=== PATIENT | male | born 1970 | race Caucasian/White ===

== ENCOUNTER 2020-10-31 11:55 | Emergency (ER) | payer OTHER, SELFPAY ==
--- NOTE | ~2020-10-31 | XR_ITS ---
EXAMINATION: [id number] EXAM DATE: 10/31/2020 12:14 INDICATION: Initial encounter following injury, with pain of the left ribs anteriorly. TECHNIQUE: Frontal projection of the upper left ribs, frontal projection of the lower left ribs, obli que projection of the left ribs, frontal chest x-ray(s) for interpretation. Comparison is made to ewa or examination from 2011. FINDINGS: Possible acute nondisplaced left 10th rib fracture anteriorly. There is no soft tissue abno rmality seen. Cardiomediastinal silhouette is normal. No confluent consolidation, pneumothorax or ple ural effusion suspected. IMPRESSION: Possible acute nondisplaced left 10th rib. Reviewed, dictated and finalized at location A.
--- NOTE | 2020-10-31 11:58 | ED.FALL ---
HPI - Fall General Chief Complaint: Wound/Laceration Stated Complaint: fall - hurts to breathe Time Seen by Provider: 10/31/20 11:58 Source: patient and RN notes reviewed History of Present Illness HPI Narrative: Patient is a 50-year-old male who presents the urgent care with complaints of a fall yesterday. Patient states that he was backing out of his attic and fell approximately 2 feet, catching himself but hitting his left side. Patient states that he has been having pain to the left side with deep breathing. Denies of any shortness of breath. No other acute complaints. No acute distress noted. Patient aware of the plan of care. Some parts of this dictation were generated by voice recognition software and may contain typographical and/or grammatical inaccuracies. Related Data Home Medications Medication Instructions Recorded Confirmed No Home Medications 10/31/20 10/31/20 Allergies Allergy/AdvReac Type Severity Reaction Status Date / Time No Known Allergies Allergy Verified 10/31/20 11:59 Review of Systems Review of Systems: Narrative: CONSTITUTIONAL: Denies fever, chills, or sweats. EYES: Denies visual changes, redness, or discharge. ENT: Denies rhinorrhea, congestion, sore throat, or otalgia. CARDIOVASCULAR: Denies chest pain, palpitations, or edema. RESPIRATORY: Reports of left rib tenderness and pain with deep breathing GASTROINTESTINAL: Denies abdominal pain, nausea, vomiting, or diarrhea. GENITOURINARY: Denies dysuria or hematuria. SKIN: Denies rash or itching. MUSCULOSKELETAL: Denies back pain, joint pain, or myalgia. NEUROLOGIC: Denies headache, numbness, or weakness. All other systems reviewed are negative, except as documented in HPI. PMFSH Comments At the time of my signature, I reviewed and agree with the nursing past medical, surgical, social, and family history. There is no relevant family history pertinent to the patient complaint. Exam Narrative: Exam Narrative: GENERAL: This is a well-nourished, well-developed patient, in no apparent distress. HEAD: normocephalic, atraumatic. EYES: PERRL. Sclera clear/white. Vision is grossly intact. EARS: External ears normal NOSE: External nose normal with no obvious nasal discharge, nares without redness, no rhinorrhea. THROAT: Mucous membranes moist NECK: Neck supple CARDIOVASCULAR: Regular rate and rhythm without murmurs, gallops, or rubs. RESPIRATORY: Clear to auscultation. Breath sounds equal bilaterally. No wheezes, rales, or rhonchi. Mild anterior rib tenderness just below the left breast without ecchymosis SKIN: warm, intact with no suspicious lesions or rash, good texture and turgor. NEURO: awake, alert, and oriented to person, place and time. There were no obvious focal neurologic abnormalities. EXTREMITIES: No clubbing, cyanosis, or edema. Course Vital Signs Vital signs: Vital Signs Temperature 98.5 F 10/31/20 12:03 Pulse Rate 79 10/31/20 12:03 Respiratory Rate 16 10/31/20 12:03 Blood Pressure 142/73 H 10/31/20 12:03 Pulse Oximetry 100 10/31/20 12:03 Temperature 98.5 F 10/31/20 12:03 Pulse Rate 79 10/31/20 12:03 Respiratory Rate 16 10/31/20 12:03 Blood Pressure 142/73 H 10/31/20 12:03 Pulse Oximetry 100 10/31/20 12:03 Reviewed-patient is informed that they may have pre-hypertension or hypertension based on a blood pressure reading in the department. I recommend the patient call the primary care provider listed on their discharge instructions or a physician of their choice this week to arrange follow-up for further evaluation of possible pre-hypertension or hypertension. MDM - Fall MDM Narrative Medical decision making narrative: Reviewed x-ray results with the patient. He is aware that radiologist is reading possible left rib fracture . Advised the patient not to bind the chest. May use a heating pad or ice pack intermittently for comfort. Use Tylenol as needed for pain. Avoid any strenuous activit
[2020-10-31 12:03] VITALS: BP 142/73; PULSE 79; RESP 16; TEMP 36.9; O2SAT 100
== END 2020-10-31 12:40 | disposition home or self-care (01) ==
PROVIDERS: Emergency Provider Nurse Practitioner Family; PCP Family Medicine
DX: S22.32XA Fracture of one rib, left side, initial encounter for closed fracture (principal); W17.89XA Other fall from one level to another, initial encounter
CPT/HCPCS: 71101; 99203; G0463

== ENCOUNTER 2022-12-11 01:16 | Day surgery (SDC) | payer OTHER, SELFPAY ==
[2022-12-08 14:47] VITALS: BMI 26.5
--- NOTE | 2022-12-10 17:07 | PM.HPGS ---
History of Present Illness History of Present Illness Consent: Risks, benefits, and alternatives have been discussed and questions answered. Patient agrees to proceed with procedure. Chief complaint: dysphagia,neoplasm screening Narrative: Salvatore Queen is a 52 year old male who has been having dysphagia for solid food for several months. He is also due for colon cancer screening. Review of Systems Review of Systems: All systems reviewed & are unremarkable except as noted in HPI and below PMFSH Past Medical History Medical History Allergies Family history of esophageal cancer in father, dx at age 65 HLD (hyperlipidemia) Spontaneous pneumothorax Surgical History Surgical History Previous back surgery Family History Family History Father Esophageal cancer Coronary artery disease Hyperlipidemia Social History Social History Smoking packs per day: 1.5 Smoking cigarettes per day: 30.0 Years smoked: 23 Smoking pack-years: 34.50 Smoking status: Current every day smoker Tobacco type: cigarettes and smokeless tobacco Smokeless tobacco user: chewing tobacco Additional smoking assessment comments: CURRENTLY CHEWS TOBACCO Alcohol intake: current Drinks per week: 42 Alcohol use details: BEERS Substance use: never Substance use type: does not use Living arrangements: with family Spiritual care concerns: No Meds Home Medications and Allergies Home Medications Medication Instructions Recorded Confirmed Type folic acid 1 mg tablet 1 mg PO DAILY 12/08/22 12/11/22 History Allergies Allergy/AdvReac Type Severity Reaction Status Date / Time No Known Allergies Allergy Verified 12/11/22 07:39 Exam Const: General: alert Orientation/consciousness: patient oriented x3 Resp: Auscultation: clear to auscultation bilaterally Cardio: Rhythm: regular rhythm GI: GI Palp: Yes Soft to palpation and No Tenderness to palpation present (GI) Neuro: General: patient oriented x3 Assessment and Plan Assessment and plan (1) Dysphagia: Code(s): R13.10 - Dysphagia, unspecified Status: Acute Assessment and Plan: EGD with possible biopsy or dilatation or cautery. (2) Colon cancer screening: Code(s): Z12.11 - Encounter for screening for malignant neoplasm of colon Status: Acute Assessment and Plan: Colonoscopy with possible biopsy or polypectomy or cautery or injection of substances.
[2022-12-11 07:41] VITALS: BP 123/80; PULSE 55; RESP 20; TEMP 36.2; O2SAT 100; BMI 24.8
[2022-12-11] MEDS: LACTATED RINGERS 1,000 ML 150 ML IV CONT (07:44)
--- NOTE | 2022-12-11 08:01 | P.PNAN_ITS ---
Anes - Initial Pre Proc Eval Procedure: Operation Date: 12/11/22 08:30 Proposed Procedures p Esophagogastroduodenoscopy & Screening Colonoscopy - Delvin Andino MD Date/Time: 12/11/22 08:01 Surgeon: Delvin Andino MD Pre Op Diagnosis: dysphagia,neoplasm screening Patient Data Age: 52 Gender: M Height: 1.78 m Weight: 78.6 kg Last Vital Signs Temp 36.2 C L 12/11/22 07:41 Pulse 55 L 12/11/22 07:41 Resp 20 12/11/22 07:41 BP 123/80 12/11/22 07:41 Pulse Ox 100 12/11/22 07:41 O2 Del Method Room Air 12/11/22 07:41 Allergies Allergy/AdvReac Type Severity Reaction Status Date / Time No Known Allergies Allergy Verified 12/11/22 07:39 Home Medications Medication Instructions Recorded Confirmed Type folic acid 1 mg tablet 1 mg PO DAILY 12/08/22 12/11/22 History Patient hx anesthesia problems: none Family hx anesthesia problems: none Results Review: All pre-operative results and documents have been reviewed as part of the pre- operative evaluation. REPLACED BY [facility] Past Medical History Medical History Allergies Family history of esophageal cancer in father, dx at age 65 HLD (hyperlipidemia) Spontaneous pneumothorax Surgical History Surgical History Previous back surgery Family History Family History Father Esophageal cancer Coronary artery disease Hyperlipidemia Social History Social History Smoking packs per day: 1.5 Smoking cigarettes per day: 30.0 Years smoked: 23 Smoking pack-years: 34.50 Smoking status: Current every day smoker Tobacco type: cigarettes and smokeless tobacco Smokeless tobacco user: chewing tobacco Additional smoking assessment comments: CURRENTLY CHEWS TOBACCO Alcohol intake: current Drinks per week: 42 Alcohol use details: BEERS Substance use: never Substance use type: does not use Living arrangements: with family Spiritual care concerns: No Anes - Eval Final PreProcedure Day of Procedure 12/11/22 08:01 Patient weight: normal Heart: regular rate and rhythm Lungs: clear to auscultation Airway: Mallampati scale class II Neurological: alert and oriented Last oral intake: >/= 8 hours ASA classification: III Emergent: no Anesthetic plan: proceed Anesthesia type and monitoring: general GIVS and standard monitoring Results Review: All pre-operative results and documents have been reviewed as part of the pre- operative evaluation. Informed Consent: The patient's anesthetic plan and its attendant risks and benefits were discussed with the patient/family/POA. Questions were solicited and answers provided to the satisfaction of the patient/family/POA.
--- NOTE | 2022-12-11 08:35 | SUR.OPER ---
EGD ended at 828. Colonoscopy began at 834.
[2022-12-11 08:49] VITALS: BP 94/54; PULSE 58; RESP 20; O2SAT 100
[2022-12-11 08:59] VITALS: BP 110/58; PULSE 59; RESP 20; O2SAT 100
[2022-12-11 09:09] VITALS: BP 110/68; PULSE 59; RESP 17; O2SAT 100
== END 2022-12-11 09:15 | disposition home or self-care (01) ==
PROVIDERS: PCP Family Medicine; Visit Provider Internal Medicine Gastroenterology
PROC: 0DJ08ZZ Inspection of Upper Intestinal Tract, Via Natural or Artificial Opening Endoscopic (ICD-10-PCS; CPT 43235; principal; 2022-12-11 08:30)
DX: Z12.11 Encounter for screening for malignant neoplasm of colon (principal); K57.30 Diverticulosis of large intestine without perforation or abscess without bleeding; K64.8 Other hemorrhoids; K63.5 Polyp of colon; K21.9 Gastro-esophageal reflux disease without esophagitis; F17.210 Nicotine dependence, cigarettes, uncomplicated; F17.220 Nicotine dependence, chewing tobacco, uncomplicated
CPT/HCPCS: 45380; 43239; 87081; 88305; J2704; J7120

== ENCOUNTER 2024-04-09 10:33 | Emergency (ER) | payer OTHER, SELFPAY ==
--- NOTE | ~2024-04-09 | XR_ITS ---
EXAMINATION: XR chest 2V DATE: 04/09/2024 11:16 INDICATION: Cough. TECHNIQUE: Frontal and lateral views of the chest were obtained. COMPARISON: Chest 2 views 02/19/2012 FINDINGS: There is mild scarring at the lung apices. A calcified left lung nodule is consistent with old granulomatous disease. No pleural effusion or pneumothorax. The heart size is normal. IMPRESSION: 1. Stable mild scarring at the lung apices. Reviewed, dictated and finalized at location A. S PROJECT MANAGER
[2024-04-09 10:46] VITALS: BP 129/80; PULSE 85; RESP 16; TEMP 37.3; O2SAT 100
--- NOTE | 2024-04-09 11:31 | ED_ITS ---
HPI - URI/Sore Throat General Chief Complaint: Upper Respiratory Infection Stated Complaint: Cough Time Seen by Provider: 04/09/24 11:15 Source: patient, RN notes reviewed and old records reviewed Mode of arrival: ambulatory Limitations: no limitations History of Present Illness HPI Narrative: 53 year old male who presents to [facility] care with complaints of nonproductive cough for 3 weeks duration which is worse at night has been taking NyQuil at bedtime to help him sllep. Patient reports that he has had some nasal congestion with drainage facial pressure and some headache discomfort at times. Patient reports that he do home COVID test which was negative.Patient reports some low grade temperatures. MD elicited complaint: cough, rhinorrhea, nasal congestion and sinus pain Onset (ago): week(s) (3 weeks) Consistency: progressively worsening Able to tolerate fluids by mouth: Yes Exacerbating factors: supine positioning Treatments prior to arrival: other (NyQuil) Related Data Home Medications ?Medication ?Instructions ?Recorded ?Confirmed ?Last Taken ?Type folic acid 1 mg tablet 1 mg PO DAILY 12/08/22 04/09/24 12/09/22 History citalopram 10 mg tablet mg 04/09/24 Unknown History losartan 50 mg tablet mg 04/09/24 Unknown History rosuvastatin 10 mg tablet mg 04/09/24 Unknown History sildenafil 50 mg tablet mg 04/09/24 Unknown History Allergies Allergy/AdvReac Type Severity Reaction Status Date / Time No Known Allergies Allergy Verified 04/09/24 10:52 Review of Systems Review of Systems: CONSTITUTIONAL: Reports malaise, no chills, sweats, states some low grade fevers. EYES: Denies visual changes, redness, or discharge. ENT: Reports rhinorrhea, congestion, sinus pain, no otalgia and no sore throat. CARDIOVASCULAR: Denies chest pain, palpitations, or edema. RESPIRATORY: Reports cough.? Denies dyspnea. GASTROINTESTINAL: Denies abdominal pain, nausea, vomiting, diarrhea SKIN: Denies rash or itching. MUSCULOSKELETAL: Denies myalgia. NEUROLOGIC:reports frontal headache. All systems reviewed & are unremarkable except as noted in HPI and below PMFSH Past Medical History Medical History Allergies Family history of esophageal cancer in father, dx at age 65 HLD (hyperlipidemia) Spontaneous pneumothorax Surgical History Surgical History Previous back surgery Family History Family History Father Esophageal cancer Coronary artery disease Hyperlipidemia Social History Social History (Updated 04/11/24 @ 10:54 by Rosalie Carrion NP) Smoking packs per day: 1.5 Smoking cigarettes per day: 30.0 Years smoked: 23 Smoking pack-years: 34.50 Smoking status: Former smoker Tobacco type: smokeless tobacco Additional smoking assessment comments: has quit smoking but uses nicotine packet Alcohol intake: current Drinks per week: 42 Alcohol use details: BEERS Substance use: never Substance use type: does not use Living arrangements: with family Spiritual care concerns: No Comments At time of signature, agree with nursing past medical, surgical, social and family history. There is no relevant family history pertinent to the presenting complaint Exam Narrative: GENERAL: Well-appearing, well-nourished, and in no acute distress. HEAD: Normocephalic EYES: PERRLA, conjunctivae clear ENT: Nares clear, turbinates edematous and erythematous, clear to yellowish tinged discharge, sinus pressure and frontal headache. Mucous membranes moist. TM pearly mcmahan with dull light reflex bilaterally; no tragal tenderness. Oropharynx erythematous without lesions. Tonsils not enlarged and without exudate, no drooling, no hoarseness, no trismus, uvula midline.post nasal drainage present. NECK: Supple. No lymphadenopathy CHEST: Clear to auscultation, breath sounds equal. No wheezing, rhonchi, rales, or stridor. No respiratory distress, speaks in full sentences.cough noted SAO2 100% on room air HEART: Regular rate and rhythm. No murmur heard. SKIN: Warm, dry, no rash. NEURO: Alert and oriented x3. PSYCH: Normal mood and affect Course Course Emergency Course: Patient is aware of diagnosis, understands and agrees to treatment plan.? Anticipatory guidance given.? Patient agrees to follow-up as directed and is aware of reasons to seek care at the emergency department. Portions of this record may have been created with voice recognition software Level of Care: Express Care Visit Vital Signs Vital signs: Vital Signs Temperature 37.3 C 04/09/24 10:46 Pulse Rate 85 04/09/24 10:46 Respiratory Rate 16 04/09/24 10:46 Blood Pressure 129/80 04/09/24 10:46 Pulse Oximetry 100 04/09/24 10:46 Oxygen Delivery Room Air 04/09/24 10:46 Temperature 37.3 C 04/09/24 10:46 Pulse Rate 85 04/09/24 10:46 Respiratory Rate 16 04/09/24 10:46 Blood Pressure 129/80 04/09/24 10:46 Pulse Oximetry 100 04/09/24 10:46 Oxygen Delivery Room Air 04/09/24 10:46 reviewed MDM - URI/Sore Throat MDM Narrative Medical decision making narrative: Differential diagnosis considered: [place] virus, strep pharyngitis, allergic rhinitis, upper respiratory tract infection, sinusitis, rhinosinusitis, nasopharyngitis. viral pharyngitis, otitis media, otitis externa, pneumonia, bronchitis, viral cough syndrome, viral syndrome, and influenza.? Exam findings show no acute concerns or changes; patient is non-toxic appearing and is in no distress.? Patient is appropriate for outpatient treatment and follow-up. Differential Diagnosis Differential diagnosis: Likely upper respiratory infection, sinusitis, viral infection and other (acute cough) Medical Records Attestation: I reviewed the patient's medical records. Lab Data Attestation: I reviewed the patient's lab results. Imaging Data Attestation: I personally reviewed and interpreted this imaging study as follows: My impression: some stable mild scarring in lung apices Radiologist's impression: [place] [address] XRay Report Signed Patient: Salvatore Queen : 1970 MR#: [id number] Age: 53 Acct:[id number] Loc: [facility] ADM Date: 04/09/24Attending Dr: Ordering Physician: Rosalie Carrion APRN Date of Service: 04/09/24 Procedure(s): XR chest 2V Accession Number(s): [id number] cc: Harms, Prince Rudd MD; Rosalie Carrion APRN~ EXAMINATION: XR chest 2V DATE: 04/09/2024 11:16 INDICATION: Cough. TECHNIQUE: Frontal and lateral views of the chest were obtained. COMPARISON: Chest 2 views 02/19/2012 FINDINGS: There is mild scarring at the lung apices. A calcified left lung nodule is consistent with old granulomatous disease. No pleural effusion or pneumothorax. The heart size is normal. IMPRESSION: 1. Stable mild scarring at the lung apices. Reviewed, dictated and finalized at location A. HAULER Dictated By: Guy Jarquin MD 04/09/24 1120 Signed By: <Electronically signed by Guy Jarquin MD in OV> Critical Care Time Critical Care Time Critical Care Time: No Discharge Plan Discharge Clinical Impression: Sinusitis Qualifiers: Sinusitis location: pansinusitis Chronicity: acute Recurrence: non-recurrent Qualified Code(s): J01.40 - Acute pansinusitis, unspecified Patient Disposition: Home, Self-Care Condition: Stable Instructions: Antibiotic Form, Sinusitis (ED) Additional Instructions: Increase fluids especially juices and water [id number] cough and cold medicine of your choice for your symptoms Zyrtec Claritin or Radha daily include Coricidin brand decongestant Tylenol or ibuprofen for any fever pain Steroids as directed--take with food heat to the face 20-30 minutes 4-6 times a day for pain Salt water gargles, throat lozenges or throat sprays as desired Antibiotic as directed--finished the medication If your symptoms persist, change or worsen significantly before you can contact your personal physician then please, without delay, go to the emergency department for further evaluation. Follow-up with PCP in 7-10 days or sooner if needed Follow up with PCP soon in regards to your blood pressure which is elevated above threshold for referral. Blood pressure above 120/80 may indicate pre- hypertension.129/80 Patient Language: Japanese Prescriptions: New amoxicillin-pot clavulanate 875-125 mg tablet 1 tablet PO Q12H Qty: 20 0RF methylprednisolone [Medrol (Gage)] 4 mg tablets,dose pack See Rx Instructions .ROUTE .COMPLEX Qty: 21 0RF Rx Instructions: orally per package directions No Action losartan 50 mg tablet sildenafil 50 mg tablet citalopram 10 mg tablet rosuvastatin 10 mg tablet folic acid 1 mg Tablet 1 mg PO DAILY pantoprazole 40 mg tablet,delayed release (DR/EC) 40 mg PO QAM Qty: 30 5RF Follow-up/Referrals: Harms,Prince Rudd M.D. [Primary Care Provider] - Time of Disposition: 11:45 Quality Lin Coma Scale Eyes: Open Verbal: Oriented and Alert Motor: Follows Commands [place] Coma Total Score: 15
--- OUTSIDE RECORDS SUMMARY | 2024-04-16 14:11 | XMS_ITS | Referral Summary ---
Author Organization [facility] Address [address] [place] [address] Care Team Providers Care Over The [employer] Targeting Supervisor Name Role Phone Prince Bello MD Primary Care Provider [phone] [phone] Encounters Date Type Department Care Team Description 04/09/2024 Orders Only [facility] [place] Information Management [address] [place], [place] [id number] Scanning, Provider from Last 3 Months Allergies No known active allergies Medications citalopram (CeleXA) 10 mg tablet Take 1 tablet (10 mg total) by mouth daily 30 tablet 3 02/10/2023 Active losartan (COZAAR) 50 mg tablet Take 1 tablet (50 mg total) by mouth daily 30 tablet 11 02/10/2023 Active ibuprofen (ADVIL,MOTRIN) 600 mg tablet TAKE 1 TABLET (600 MG TOTAL) BY MOUTH EVERY 8 (EIGHT) HOURS NEEDED FOR PAIN (TAKE WTIH FOOD.) 90 tablet 3 03/16/2024 Active Active Problems Problem Noted Date Diagnosed Date Other male erectile dysfunction 07/15/2023 Assessment & Plan (07/15/2023 8:19 AM CDT): Will initiate Viagra. We reviewed the risks and benefits as well as red flags in detail. Will check testosterone level as well. He is agreeable and states understanding. Will monitor response. Hypertension, essential 07/15/2023 Assessment & Plan (07/15/2023 8:19 AM CDT): Controlled on losartan. Will continue. BMI 27.0-27.9,adult 07/15/2023 Recurrent major depression 10/28/2022 Assessment & Plan (07/15/2023 8:18 AM CDT): Reports stable without medication treatment. Will continue to monitor. Disorder of intervertebral disc 09/03/2013 Overview (07/24/2016): DISC DIS NEC/NOS-LUMBAR Tobacco dependence syndrome 09/03/2013 Overview (07/25/2016): TOBACCO USE DISORDER Immunizations Name Administration Dates Next Due Influenza, Trivalent, IM (MDV) 03/11/2014,2008 Influenza, Unspecified 02/10/2023(Deferr ed: Patient Refused),04/20/2022(Deferred: Patient Refused),04/20/2022(Deferred: Patient Refused),04/20/2021(Deferred: Patient Refused),02/07/2021(Deferred: Patient Refused),08/20/2020(Deferred: Patient Refused),04/20/2020(Deferred: Patient Refused),01/19/2020(Deferred: Patient Refused),12/20/2019(Deferred: Patient Refused),06/13/2019(Deferred: Patient Refused),01/20/2018(Deferred: Patient decision) Pfizer SARS-CoV-2 Monovalent Vaccination (12+ Yrs) PURPLE 07/06/2020,06/15/2020 Social History Tobacco Use Types Packs/Day Years Used Date Smoking Tobacco: Former Cigarettes 1 27 1 988 - 2014 Smokeless Tobacco: Current Chew Comments:Smoking History Pac ks/day: 1 Packs for 27 years = 27 year pack history Alcohol Use Standard Drinks/Week Comments Yes 0 (1 standard drink = 0.6 oz pur e alcohol) Occassional PHQ-2 Answer Date Recorded PHQ-2 Total Score (If total score is 3 or more points, staff should administer the PHQ-9) 0 02/10/2023 Sex and Gender Information Value Date Recorded Sex Assigned at Not on file 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 Gender Identity Not on file Sexual Orientation Not on file Last Filed Vital Signs Vital Sign Reading Time Taken Comments Blood Pressure 128/80 07/15/2023 7:37 AM CDT Pulse 72 07/15/2023 7:37 AM CDT Temperature 36.7 ??C (98 ??F) 07/15/2023 7:37 AM CDT Respiratory Rate 18 07/15/2023 7:37 AM CDT Oxygen Saturation 98% 07/15/2023 7:37 AM CDT Inhaled Oxygen Concentration - - Weight 87.2 kg (192 lb 3.2 oz) 07/15/2023 7:37 A M CDT Height 177.8 cm (5' 10 ) 07/15/2023 7:37 AM CDT Body Mass Index 27.58 07/15/2023 7:37 AM CDT Plan of Treatment Not on file Procedures Procedure Name Priority Date/Time Associated Diagnosis Comments SCAN - RADIOLOGY/IMAGING 04/09/2024 COLONOSCOPY Routine 12/11/2022 4:56 PM CDT PSA SCREEN Routine 10/28/2022 11:52 AM CDT Prostate cancer screening CT CHEST WO CONTRAST F/U LUNG SCREEN PROTOCOL Schedule Routine, Read Routine (OP Routine) 05/07/2022 7:28 AM IMPROVEMENT COORDINATOR Screening for lung cancer from Last 3 Months or Most Recently Relevant to Health Maintenance Results * SCAN - RADIOLOGY/IMAGING (04/09/2024) Anatomical Region Laterality Modality Other us Provider Scanning Final Result * (ABNORMAL) COLONOSCOPY (12/11/2022 4:56 PM CDT) Historical Provider HEALTH MAINTENANCE Edited Result - Final * PSA screen (10/28/2022 11:52 AM CDT) PSA-Total 0.41 <=3.90 ng/mL MONICA MENENDEZ Comment: Interpretive Data ?AGE ? SEX ?REFERENCE INTERVAL 0 minutes-150 years ?Female ?None 0 minutes-49 years ? Male ?None ? 50-59 years ? Male ?0-3.90 ? 60-69 years ? Male ?0-5.40 ? 70-79 years ? Male ?0-6.20 ? 80-150 years ?Male ?0-6.20 The Oscar PSA Total assay procedure was used. Results from different manufacturers or methods may not be comparable. Serial testing should be performed using the same method. Current interpretive data last revised 21. Blood 10/28/2022 11:5 2 AM CDT 10/28/2022 2:34 PM CDT Prince Bello MD LAB BLOOD ORDERABLES Chanell bermudez Result [facility] [address] Department [place] [address] * CT Chest WO Contrast F/U Lung Screen Protocol (05/07/2022 7:28 AM IMPROVEMENT COORDINATOR) Anatomical Region Laterality Modality Chest N/A Computed Tomogra phy 05/07/2022 12:3 0 PM IMPROVEMENT COORDINATOR Narrative 05/07/2022 12:37 PM IMPROVEMENT COORDINATOR EXAM DESCRIPTION: ?? CT CHEST WO CONTRAST F/U LUNG SCREEN PROTOCOL REASON FOR STUDY: Screening CT of the chest in a ?? former ??smoker with a ??25 ?? pack year smoking history. Additional history: Smoking cessation in 2014. ?? Six-month follow-up for probably benign nodule seen on lung cancer screening CT in October 2021. TECHNIQUE: Low dose CT scan of the chest was performed without intravenous contrast using helical scanning technique. The exam extends from the lung apices through the lung bases. Automatic exposure control was used as a dose optimization technique. RADIATION DOSE: CT dose index volume (CTDIvol) = ?? 1.87 ??mGy COMPARISON: ?? Chest CT dated 11/01/2021 FINDINGS: SMOKING RELATED LUNG DISEASE: ?? There is mild emphysema with centrilobular and paraseptal components, predominantly in the upper lobes near the apices. LUNG NODULES: ?? Unchanged 6 mm solid nodule in the periphery of the left upper lobe apicoposterior segment, axial image number 41 of series 3. ??Other somewhat nodular appearing areas in the upper lungs appear stable, and are likely part of a background of chronic pleuroparenchymal scarring. ??There are no new lung nodules. CORONARY ARTERY CALCIFICATION: ??Moderate. OTHER: ?? There is no focal consolidation. ??The airways are patent. ??Normal bronchial caliber. ??There is no pleural effusion or pneumothorax. ??No suspicious lymphadenopathy is seen in the chest. ??No mediastinal masses. ??The heart size is normal. ??There is no pericardial effusion. ??The thoracic aorta is mildly atherosclerotic, and normal in caliber. ??The central pulmonary arteries have normal caliber. ??Limited low-dose images through the upper abdomen are unremarkable. ??Examination of bone windows demonstrates no suspicious lytic or blastic lesions. ??Mild degenerative changes in the thoracic spine. IMPRESSION: ?? 1. ?? The 6 mm nodule of concern in the left upper lobe apicoposterior segment has not suspiciously changed. ??Other nodular areas are part of a background of biapical pleuroparenchymal scarring, and no new suspicious lung nodules are seen. 2. ?? Mild emphysema. 3. ?? Other findings as described above. Lung-RADS v1.1 category ??2: Benign appearance or behavior. Recommendation: ??Low dose Screening CT of chest in 12 months. THIS IS AN ELECTRONICALLY VERIFIED FINAL REPORT 05/07/2022 12:37 PM - Electronically signed by ??Star Davis M.D. RL: JOELLEN D: ??05/07/2022 12:37 PM T: ??05/07/2022 12:37 PM Report ID: [id number] Reading Location: ??[id number] Procedure Note Star Bhat MD - 05/07/2022 EXAM DESCRIPTION: CT CHEST WO CONTRAST F/U LUNG SCREEN PROTOCOL REASON FOR STUDY: Screening CT of the chest in a former smoker with a25 pack year smoking history. Additional history: Smoking cessation in 2014. Six-month follow-up for probably benign nodule seen on lung cancerscreening CT in October 2021. TECHNIQUE: Low dose CT scan of the chest was performed without intravenous contrast using helical scanning technique. The exam extends from the lung apices through the lung bases. Automatic exposure control was used as adose optimization technique. RADIATION DOSE: CT dose index volume (CTDIvol) = 1.87 mGy COMPARISON: Chest CT dated 11/01/2021 FINDINGS: SMOKING RELATED LUNG DISEASE: There is mild emphysema with centrilobularand paraseptal components, predominantly in the upper lobes near the apices. LUNG NODULES: Unchanged 6 mm solid nodule in the periphery of the leftupper lobe apicoposterior segment, axial image number 41 of series 3. Other somewhat nodular appearing areas in the upper lungs appear stable, and are likely part of a background of chronic pleuroparenchymal scarring. Thereare no new lung nodules. CORONARY ARTERY CALCIFICATION: Moderate. OTHER: There is no focal consolidation. The airways are patent. Normal bronchial caliber. There is no pleural effusion or pneumothorax. No suspicious lymphadenopathy is seen in the chest. No mediastinal masses.The heart size is normal. There is no pericardial effusion. The thoracicaorta is mildly atherosclerotic, and normal in caliber. The central pulmonary arteries have normal caliber. Limited low-dose images through the upper abdomen are unremarkable. Examination of bone windows demonstrates no suspicious lytic or blastic lesions. Mild degenerative changes in the thoracic spine. IMPRESSION: 1. The 6 mm nodule of concern in the left upper lobe apicoposteriorsegment has not suspiciously changed. Other nodular areas are part of abackground of biapical pleuroparenchymal scarring, and no new suspicious lung nodulesare seen. 2. Mild emphysema. 3. Other findings as described above. Lung-RADS v1.1 category 2: Benign appearance or behavior. Recommendation: Low dose Screening CT of chest in 12 months. THIS IS AN ELECTRONICALLY VERIFIED FINAL REPORT 05/07/2022 12:37 PM - Electronically signed by Star Davis M.D. RL: JOELLEN Report ID: [id number] Reading Location: [id number] Prince Bello MD IMG CT PROCEDURES Final R esult from Last 3 Months or Most Recently Relevant to Health Maintenance Insurance [facility] [id number] [facility] Care Teams Over [employer] Targeting Supervisor Relationship Specialty Start Date End Date Prince Bello MD [address] [place] [address] PCP - General 07/18/16
--- OUTSIDE RECORDS SUMMARY | 2024-04-16 14:11 | XMS_ITS | Encounter Summary ---
Author Organization [facility] Healthcare Address [address] [place] [address] Care Team Providers Care Multiple Wire Sawyer Name Role Phone Prince Bello MD Primary Care Provider [phone] [phone] Encounter Details Date Type Department Care Team (Late st Contact Info) Description 07/23/2023 Telephone [facility] [address] [place] [address] Prince Bello MD [address] [place] [address] Social History Tobacco Use Types Packs/Day Years Used Date Smoking Tobacco: Former Cigarettes 1 2014 Smokeless Tobacco: Current Chew Comments:Smoking History [...] on file 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 * Telephone Encounter - Britney Eng CMA - 07/23/2023 2:48 PM CDT ----- Message from Agnieszka Hargrove NP sent at 07/23/2023 1:29 PM CDT ----- Normal testosterone level. documented in this encounter Plan of Treatment Not on file documented as of this encounter Visit Diagnoses Not on filedocumented in this encounter Care Teams Multiple Wire Sawyer Relationship Specialty Start Date End Date Prince Bello MD [address] [place] [address] PCP - General 07/18/16 documented as of this encounter
--- OUTSIDE RECORDS SUMMARY | 2024-04-16 14:11 | XMS_ITS | Clinical Summary ---
Author Organization [facility] [place] [address] [facility] lt Address [address] [place] [address] Care Team Providers Care Associate Java Developer Name Role Phone Prince Bello MD Primary Care Provider [phone] [phone] Allergies No known active allergies Medications citalopram [...] syndrome 09/03/2013 Overview (07/25/2016): TOBACCO USE DISORDER Encounters Date Type Department Care Team Description 04/09/2024 Orders Only [facility] Health Information Management [address] [place] [address] Scanning, Provider from Last 3 Months Immunizations Name Administration Dates Next Due Influenza, Trivalent, IM (MDV) 03/11/2014,2008 Influenza, Unspecified 02/10/2023(Deferr ed: Patient Refused),04/20/2022(Deferred: Patient Refused),04/20/2022(Deferred: Patient Refused),04/20/2021(Deferred: Patient Refused),02/07/2021(Deferred: Patient Refused),08/20/2020(Deferred: Patient Refused),04/20/2020(Deferred: Patient Refused),01/19/2020(Deferred: Patient Refused),12/20/2019(Deferred: Patient Refused),06/13/2019(Deferred: Patient Refused),01/20/2018(Deferred: Patient decision) Pfizer SARS-CoV-2 Monovalent Vaccination (12+ Yrs) PURPLE 07/06/2020,06/15/2020 Surgical History Surgery Date Site/Laterality Comments BACK SURGERY Back surgery LASIK LASIK OTHER SURGICAL HISTORY 2013 spontaneous R pneumothorax: R lung chest tube Medical History Medical History Date Comments Hyperlipidemia Hyperlipidemia History of multiple allergies Al lergies Hx Other Medical spontaneous R p neumothorax; Comments: MARIANA 05/09/2014 - Family History Medical History Relation Name Comments Coronary artery disease Father 2 Margaret nary artery disease; Esophageal cancer Father 2 esophageal cancer; Hyperlipidemia Father 2 Hyperlipidemi a; Other Father 2 4-v CABG; Other Mother 2 Alive and well; Relation Name Status Comments Father 1 Alive Father 2 Mother 1 Alive Mother 2 Social History Tobacco Use Types Packs/Day Years [...] on file 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 Gender Identity Not on file Sexual Orientation Not on file Obstetrics History Last Filed Vital Signs Vital Sign Reading [...] 07/15/2023 7:37 AM CDT Plan of Treatment Health Maintenance Due Date Last Done Comments Hepatitis C Screening 1971 DTaP/Tdap/Td Vaccine (1 - Tdap) 1982 Hepatitis B Screening 1989 Zoster Vaccine (1 of 2) 2021 Regular Well Visit/Exam 18-64 08/20/2021 08/20/2020, 06/13/2019 Lung Cancer Screening 05/08/2023 05/07/2022, 022 Covid-19 Vaccine (3 - 2023- season) 2023 07/06/2020, 06/15/2020 Influenza Vaccine (#1) 2023 03/11/2014, 2008 Depression Screening 02/11/2024 02/10/2023, 10/28/2022, 08/23/2021, Additional history exists Prostate Cancer Screening-PSA 10/28/2024 10/28/2022 Colon Cancer Screening-Colonoscopy 12/11/2032 12/11/2022 Pneumococcal vaccine <65 Aged Out No longer eligible based on patient's age to complete this topic Procedures Procedure Name Priority Date/Time Associated Diagnosis Comments SCAN - RADIOLOGY/IMAGING 04/09/2024 HM COLONOSCOPY Routine 12/11/2022 4:56 PM CDT PSA SCREEN Routine 10/28/2022 11:52 AM CDT Prostate cancer screening CT CHEST WO CONTRAST F/U LUNG SCREEN PROTOCOL Schedule Routine, Read Routine (OP Routine) 05/07/2022 7:28 AM TEST GRADER Screening for lung cancer from Last 3 [...] 2 AM CDT 10/28/2022 2:34 PM CDT us Prince Bello MD LAB BLOOD ORDERABLES Chanell l Result MONICA MENENDEZ [id number] Department of Laboratories [place] [id number] * CT Chest WO Contrast F/U Lung Screen Protocol (05/07/2022 7:28 AM TEST GRADER) Anatomical Region Laterality Modality Chest N/A Computed Tomogra phy 05/07/2022 12:3 0 PM TEST GRADER Narrative 05/07/2022 12:37 PM TEST GRADER EXAM DESCRIPTION: ?? CT CHEST WO CONTRAST [...] PM T: ??05/07/2022 12:37 PM Report ID: [id number] Reading Location: ??[id number] Procedure Note Star Bhat MD - 05/07/2022 [...] Star Davis M.D. RL: JOELLEN Report ID: [id number] Reading Location: [id number] Prince Bello MD IMG CT PROCEDURES Final R esult from Last 3 Months or Most Recently Relevant to Health Maintenance [place] [address] [place] [address] [facility] H[facility]/PP[facility] Address: [address] [address] [place] [address] [facility] Member Subscriber Plan / Payer (Ef fective 2018-Present) Name:Salvatore Queen Relation to Subscriber:Self Name:SALVATORE QUEEN Payer ID:[id number] ([facility]) Type:MANAGED CARE OTHER Address: [address] [place] [address] [facility] H[facility]/PPO Address: [address] [address] [place] [address] Care Teams Associate Java Developer Relationship Specialty Start Date End Date Prince Bello MD [address] [place] [address] PCP - General 07/18/16
--- OUTSIDE RECORDS SUMMARY | 2024-04-16 14:11 | XMS_ITS | CONTINUITY OF CARE DOCUMENT ---
Author Name joseph, alkajeanie Address Unknown Organization [facility] Address [address] [place] [address] [address] [place] [address] Phone [phone] Care Team Providers Care Machinist First Class Name Role Phone Howard LISA, Camille Unavailable [phone] ISI ANGELES MD Unavailable [phone] ISI ANGELES MD Unavailable [phone] PROBLEMS Condition Status Date Provider Notes Coronary atherosclerosis due to calcified coronary lesion active Tremayne Siddiqui Cardiology examination active Tremayne Siddiqui Alcohol abuse active Betito Ahmedzai Tobacco chewer active Betito Ahmedzai Snoring active Betito Ahmedzai Fatigue active Betito Ahmedzai Hyperlipidemia active Betito Ahmedzai Hypertension active Betito Ahmedzai Cardiovascular screening completed - Betito Ahmedzai ENCOUNTERS Date Type Provider Location Encounter Diag nosis 02/11 - 02/11 In-person encounter Office Visit [facility] Cardiology examinationCoronary atheroscl erosis due to calcified coronary lesion 11/26 - 11/29 In-person encounter Office Visit [facility] Cardiovascular screeningHypertensionHyperlipidemiaFatigueSnoringTo bacco chewerAlcohol abuse VITAL SIGNS Date Observation Value Provider Body Mass Index (Ratio) 27.37 kg/m2 Osmel Siddiqui blood pressure, diastolic 91 mm[Hg] Efrain Chase blood pressure, systolic 150 mm[Hg] Dominique Morenoing blood pressure, cuff size regular Efrain Morenoing oxygen saturation, oximetry 99 % Antonietta Morenoing pulse rate 72 /min Antonietta Morenoing weight E&M 190.8 [lb_av] Antonietta Morenoing height E&M 70 [in_i] Antonietta Chase Body Mass Index (Ratio) 26.69 kg/m2 Betito Baker blood pressure, diastolic 80 mm[Hg] Kathleen Sands blood pressure, systolic 144 mm[Hg] Natalia Sands pulse rate 65 /min Silvia Sands oxygen saturation, oximetry 98 % Silvia Sands respiratory rate E&M 16 /min Silvia Sands weight E&M 186 [lb_av] Silvia Sands height E&M 70 [in_i] Silvia Sands blood pressure, cuff size regular Kathleen Sands ALLERGIES No Known Drug Allergies RESULTS Date Observation Value Provider Reference Range Interpretation Location lipoprotein, beta, serum, point, quantitative, calculated 95 mg/dL [facility] 0-99 HDL cholesterol, serum 65 mg/dL [facility] >39 triglyceride, serum, random 233 mg/dL [facility] 0-149 High cholesterol, serum 199 mg/dL [facility] 100-199 HISTORY OF MEDICATION USE Medication Status Instructions Dates Provider Indications Com ments folic acid 1 mg tablet active daily Julia Rolle NP rosuvastatin 10 mg tablet active Take 1 tablet by mouth once a day Take 1 tablet by mouth once daily Rebecca Thrasher NP Hyperlipidemia aspirin 81 mg tablet,chewable active TAKE 1 TABLET BY MOUTH EVERY DAY Rebecca Thrasher NP rosuvastatin 10 mg tablet completed Take 1 tablet by mouth once a day - Julia Rolle CLARIFYING PLANT OPERATOR Hyperlipidemia citalopram 10 mg tablet active 1 tablet by mouth once a day Silvia Wicho losartan 50 mg tablet active Take 1 tablet once a day Silvia Wicho pantoprazole 40 mg tablet,delayed release (DR/EC) active Take 1 tablet by mouth once a day Silvia Wicho sildenafil 50 mg tablet active Take 1 tablet by mouth once daily as needed for ED Silvia Sands SOCIAL HISTORY Date Observation Value Provider oral tobacco use per day 15 Nati Rolle NP alcohol use, average drinks per day 4+ Julia Rolle NP alcohol use, type whiskey/beer Julia zuñiga NP alcohol use yes Julia gaffney NP if the patient is us ing/has used a vaping item, Current, Former, Never Used, Not asked Never Julia Rolle NP chewing tobacco use Current Julia Rolle NP smoking, year quit 2012 Julia Rolle NP number of years as a smoker 10 a Julia Rolle NP cigarette use yes Julia perry NP smoking status Former smoker Julia bull NP Exercise counseling Yes Julia Rolle NP How often do you hav e six or more alcohol drinks on one occasion? Weekly Rebecca Iam'Jaden HARO Alcohol, drinks per day 5 or 6 Dannie a O'Jadenramiro HARO alcohol use, frequency 4 or more times a week Rebecca O'Jadenramiro HARO alcohol use, average drinks per day 4+ Rebecca Iam'Jadenramiro HARO alcohol use, type whiskey/beer Rebecca Vitale'Leti rubio CLARIFYING PLANT OPERATOR alcohol use yes Rebecca Vitale'Jaden HARO if the patient is us ing/has used a vaping item, Current, Former, Never Used, Not asked Never Rebecca Thrasher NP chewing tobacco use Current Rebecca Stanley CLARIFYING PLANT OPERATOR smoking, year quit 2012 Rebecca Hampton eal CLARIFYING PLANT OPERATOR number of years as a smoker 10 a Rebecca Thrasher CLARIFYING PLANT OPERATOR cigarette use yes Rebecca Thrasher N P smoking status Former smoker Rebecca MonterrosoJaden HARO FAMILY HISTORY Family Member Condition Father Hypertension Father Hyperlipidemia INSURANCE PROVIDERS Payer name Policy type / Coverage type uL red constitution party ID [employer] Commercial insurance co soledad [id number] ADVANCE DIRECTIVES Name Date DISCUSSED - NO DECISION MADE TREATMENT PLAN Date Name Performer Cardiology: Archie kendrick low salt foods, condiments. BP today: 150/91 P rior BP: 144/80 (11/27/2023) Labs Reviewed: C hol: 199 (12/12/2023) HDL: 65 (12/12/2023) LDL: 95 (12/12/2023) T (12/12/2023) His updated medication list for this problem includes: Aspirin 81 Mg Tablet,chewable (Aspirin) ..... Take 1 tablet by mouth every day Losartan 50 Mg Tablet (Losartan) ..... Take 1 tablet once a day Julia Rolle NP Cardiology:CCS: 525 s leep study: no evidence of sleep apnea s tress test: normal no evidence of ischemia t anand: 3 day: SR, average 86, min 56, max 131, VE <0.1%, SVE <0.1% Julia Rolle NP Cardiology:REPEAT LA BS: LDL 95, HDL 65, TRIGS 233, CHOL 199 Labs (10/2023): total: 235, TG 187, HDL 56, LDL 142 CCS (10/2023): total 525 Significant family history (see HPI) in first degree relative. H e denies chest pain, SOB, but reports fatigue which is new for him over the last 6 months. We will check cardiolite stress test. S tart Rosuvastatin 10 mg/bedtime. Start ASA 81 mg/day. Julia Rolle NP Cardiology:CCS 525 s leep study: no evidence of sleep apnea s tress test: normal no evidence of ischemia t anand: 3 day: SR, average 86, min 56, max 131, VE <0.1%, SVE <0.1% Julia Rolle NP Cardiology:negative sleep study Julia Rolle NP Cardiology:uses up t o 15 dips/day. encouraged to cut down by half until able to quit. Julia Rolle NP Cardiology: etoh use (beer/whiskey) 6 drinks/day typically. encouraged to cut down down. Julia Rolle NP Cardiology: etoh use (beer/whiskey) 6 drinks/day typically Rebecca Thrasher NP Cardiology: s noring with fatigue with CV disease. Will check in home sleep study for sleep apnea screening. Rebecca Thrasher NP Cardiology: n ew over last 6 months which is not usual for him Rebecca Thrasher NP Cardiology: e ncouraged cessation and discussed helath risks f ormer cigarette smoker Rebecca Thrasher NP Cardiology: L abs (10/2023): total: 235, TG 187, HDL 56, LDL 142 CCS (10/2023): total 525 Significant family history (see HPI) in first degree relative. H e denies chest pain, SOB, but reports fatigue which is new for him over the last 6 months. We will check cardiolite stress test. S tart Rosuvastatin 10 mg/bedtime. Start ASA 81 mg/day. Rebecca Thrasher NP Cardiology: B P today: 144/80 I f high again next visit, consider adjusting. Encouraged compliance. His updated medication list for this problem includes: Losartan 50 Mg Tablet (Losartan) ..... Take 1 tablet once a day Rebecca Thrasher NP Date Name COMPREHENSIVE METABO LIC PANEL, W/EGFR NMR LipoProfile (Lab carmen) Lipoprotein (a) LIPID PANEL LIPID PANEL Holter Monitor 48 hr Sleep Study Home Stress Exercise Card iolite CT, Coronary Calcium Score HISTORY OF PROCEDURES Procedure Date Procedure Name Provider Procedure Notes S tatus EKG Camille Lawrence MD comp leted EKG Camille Lawrence MD comp leted CT- Coronary CA score Camille Lawrence MD completed
--- OUTSIDE RECORDS SUMMARY | 2024-04-16 14:11 | XMS_ITS | Encounter Summary ---
Author Organization [facility] Healthcare Address [address] [place] [address] Care Team Providers Care Windmill Mechanic Name Role Phone Prince Bello MD Primary Care Provider [phone] Reason for Visit * Reason Onset Date Comments Prior Authorization (sildenafil) 07/15/2023 Encounter Details Date Type Department Care Team (Late st Contact Info) Description 07/15/2023 Telephone [facility] [address] [address] Prince Bello MD [address] [place] [address] Prior Authorization (sildenafil) Social History Tobacco Use Types Packs/Day Years Used Date Smoking Tobacco: Former Cigarettes - 2014 Smokeless Tobacco: Current Chew Comments:Smoking [...] on file 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 Gender Identity Not on file Sexual Orientation Not on file documented as of this encounter Miscellaneous Notes * Telephone Encounter - Ambika Coy MA - 07/15/2023 3:40 PM CDT Received approval Scanned under media * Telephone Encounter - Ambika Coy MA - 07/15/2023 10:39 AM CDT Received fax from pharmacy requesting PA on sildenafil Submitted PA through cover my meds Waiting on a response documented in this encounter Plan of Treatment Not on file documented as of this encounter Visit Diagnoses Not on filedocumented in this encounter Care Teams Windmill Mechanic Relationship Specialty Start Date End Date [place] [address] PCP - General 07/18/16 documented as of this encounter
--- OUTSIDE RECORDS SUMMARY | 2024-04-16 14:11 | XMS_ITS | Encounter Summary ---
Author Organization 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 Gender Identity Not on file Sexual Orientation Not on file documented as of this encounter Plan of Treatment Not on file documented as of this encounter Procedures Procedure Name Priority Date/Time Associated Diagnosis Comments HM COLONOSCOPY Routine 12/11/2022 4:56 PM CDT documented in this encounter Results * (ABNORMAL) HM COLONOSCOPY (12/11/2022 4:56 PM CDT) us Historical Provider HEALTH MAINTENANCE Edited Result - Final documented in this encounter Visit Diagnoses Not on filedocumented in this encounter Care Teams Med Specialist Relationship Specialty Start Date End [place] [address] PCP - General 07/18/16 documented as of this encounter
--- OUTSIDE RECORDS SUMMARY | 2024-04-16 14:12 | XMS_ITS | Encounter Summary ---
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
--- OUTSIDE RECORDS SUMMARY | 2024-04-16 14:12 | XMS_ITS | Encounter Summary ---
Author Organization [facility] Healthcare Address [address] [place] [address] Care Team Providers Care Coastal/Harbor Defense Officer Name Role Phone Prince Bello MD Primary Care Provider [phone] Encounter Details Date Type Department Care Team (Latest Contact Info) Description 10/28/2022 11:52 AM CDT - 10/28/2022 11:59 PM CDT Hospital Encounter [address] [address] Lipid screening; Prostate cancer screening; Elevated blood pressure reading Discharge Disposition: Discharge to home or self care Social History Tobacco Use Types Packs/Day Years [...] points, staff should administer the PHQ-9) 0 10/28/2022 Sex and Gender Information Value Date Recorded Sex Assigned at Not on file 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 Gender Identity Not on file Sexual Orientation Not on file documented as of this encounter Medications at Time of Discharge citalopram (CeleXA) 10 mg tablet Take 1 tablet (10 mg total) by mouth daily 30 tablet 3 10/28/2022 02/10/2023 ibuprofen (ADVIL,MOTRIN) 600 mg tablet Take 1 tablet (600 mg total) by mouth every 8 (eight) hours as needed for pain 90 tablet 3 10/28/2022 02/10/2023 documented as of this encounter Discharge Disposition Disposition Code Departure Means Destination Discharge to home or self care documented in this encounter Plan of Treatment Not on file documented as of this encounter Procedures Procedure Name Priority Date/Time Associated Diagnosis Comments EGFR Routine 10/28/2022 11:52 AM CDT Lipid screening DIFFERENTIAL AUTO Routine 10/28/2022 11: 52 AM CDT Lipid screening PSA SCREEN Routine 10/28/2022 11:52 AM CDT Prostate cancer screening URINALYSIS AND REFLEX TO MICROSCOPIC AND CULTURE Routine 10/28/2022 11:52 AM CDT Elevated blood pressure reading CBC WITH AUTO DIFFERENTIAL Routine 10/28/2022 11:52 AM CDT Lipid screening URINALYSIS, MICROSCOPIC ONLY Routine 10/28/2022 11:52 AM CDT Elevated blood pressure reading TSH Routine 10/28/2022 11:52 AM CDT Elevated blood pressure reading T4, FREE Routine 10/28/2022 11:52 AM CDT Elevated blood pressure reading LIPID PANEL Routine 10/28/2022 11:52 AM CDT Lipid screening COMPREHENSIVE METABOLIC PANEL Routine 10/28/2022 11:52 AM CDT Lipid screening documented in this encounter Results * eGFR (10/28/2022 11:52 AM CDT) [facility] eGFR 89 mL/min/1. 73 m2 [facility] Comment: Interpretive Data Reference Interval Normal ?>/= 90 mL/min/1.73m2 Mildly decreased* ? 60 - 89 mL/min/1.73m2 Mildly to moderately decreased ?45 - 59 mL/min/1.73m2 Moderately to severely decreased ??30 - 44 mL/min/1.73m2 Severely decreased ?15 - 29 mL/min/1.73m2 Kidney Failure ?< 15 ??mL/min/1.73m2 *Relative to young adult level Estimated glomerular filtration rate is determined by the 2020 CKD-EPI equation recommended by the National Kidney Foundation (A Unifying Approach to GFR Estimation: Recommendations of the NKF-ASK Task Force on Reassessing the Inclusion of Race in Diagnosing Kidney Disease, JASN 2020). The CKD-EPI equation should not be used for patients with unstable renal function and has not been validated in children and those over 70. Current interpretive data was last reviewed 2021. Blood 10/28/2022 11:5 2 AM CDT 10/28/2022 2:39 PM CDT Prince Bello MD LAB BLOOD ORDERABLES Chanell l Result Performing Organization Address [facility] Phone Number [facility] [id number] [place] [address] * (ABNORMAL) Urinalysis, microscopic only (10/28/2022 11:52 AM CDT) WBC, ur 0-5 0 - 5 /HPF [facility] RBC, ur 0-2 0 - 2 /HPF [facility] Epithelial cells, squamous, ur 1-5 0 - 5 /HPF [facility] Mucous, ur Present(A) [facility] Culture Reflex Comment Reflex conditions for urine culture (WBC >10) not met. [facility] Urine 10/28/2022 11:5 2 AM CDT 10/28/2022 2:34 PM CDT Prince Bello MD LAB URINE ORDERABLES Chanell l Result [facility] [id number] [place] [address] * Differential, auto (10/28/2022 11:52 AM CDT) Neutrophil abs 4.6 1.7 - 6.5 [facility] gran abs 0.0 0.0 - 0.1 K/cumm [facility] Lymphocyte abs 1.7 0.8 - 3.3 K/cumm [facility] Monocyte abs 0.5 0.2 - 0.8 K/cumm [facility] Eosinophil abs 0.0 0.0 - 0.5 K/cumm [facility] Basophil abs 0.1 0.0 - 0.1 K/cumm [facility] Neutrophil pct 66.7 % [facility] Comment: Interpretive Data Percent cell count reference ranges are not reported, since discordance with absolute values may lead to misinterpretation of CBC data. Current Interpretive Data was last revised on 2017. Imm gran pct 0.4 % [facility] Comment: Interpretive Data Percent cell count reference ranges are not reported, since discordance with absolute values may lead to misinterpretation of CBC data. Current Interpretive Data was last revised on 2017. Lymphocyte pct 24.7 % [facility] Comment: Interpretive Data Percent cell count reference ranges are not reported, since discordance with absolute values may lead to misinterpretation of CBC data. Current Interpretive Data was last revised on 2017. Monocyte pct 6.9 % [facility] Comment: Interpretive Data Percent cell count reference ranges are not reported, since discordance with absolute values may lead to misinterpretation of CBC data. Current Interpretive Data was last revised on 2017. Eosinophil pct 0.3 % [facility] Comment: Interpretive Data Percent cell count reference ranges are not reported, since discordance with absolute values may lead to misinterpretation of CBC data. Current Interpretive Data was last revised on 2017. Basophil pct 1.0 % [facility] Comment: Interpretive Data Percent cell count reference ranges are not reported, since discordance with absolute values may lead to misinterpretation of CBC data. Current Interpretive Data was last revised on 2017. Blood 10/28/2022 11:5 2 AM CDT 10/28/2022 2:34 PM CDT Prince Bello MD LAB BLOOD ORDERAB[place] [id number] [address] [place] [address] * (ABNORMAL) Comprehensive metabolic panel (10/28/2022 11:52 AM CDT) Sodium 142 135 - 145 mmol/L [facility] Potassium, pl 4.7 3.3 - 4.9 mmol/L [facility] Chloride 103 97 - 110 mmol/L [facility] CO2 24 22 - 32 mmol/L [facility] Anion gap 15 2 - 15 mmol/L [facility] BUN 12 6 - 25 mg/dL [facility] Creatinine 1.02 0.80 - 1.30 mg/dL [facility] Glucose 99 70 - 199 mg/dL [facility] Comment: Interpretive Data Fasting glucose >/= 126 mg/dl is diagnostic for diabetes. ?? Fasting is defined as no caloric intake for at least 8 hours. Fasting glucose between 100 mg/dl to 125 mg/dl is diagnostic of prediabetes. In a patient with classic symptoms of hyperglycemia or hyperglycemic crisis, a random glucose >/= 200 mg/dl is diagnostic for diabetes. In the absence of unequivocal hyperglycemia, results should be confirmed by repeat testing. The classification and Diagnosis of Diabetes Diabetes Care 2021; 46: S19-S40. Current interpretive data was last revised 2022. Calcium 10.2 8.5 - 10.3 mg/dL [facility] Bilirubin, total 0.9 0.1 - 1.2 mg/dL [facility] Protein, pl 8.4 6.5 - 8.5 g/dL [facility] Albumin 5.4(H) 3.5 - 5.0 g/dL [facility] Alk phos 52 40 - 130 Units/L [facility] ALT 22 7 - 55 Units/L [facility] AST 30 10 - 50 Units/L [facility] Blood 10/28/2022 11:5 2 AM CDT 10/28/2022 2:34 PM CDT us Prince Bello MD LAB BLOOD ORDERABLES Chanell aidan Result [facility] [id number] [address] [place] [address] * (ABNORMAL) Lipid panel (10/28/2022 11:52 AM CDT) Cholesterol 259(H) 30 - 199 mg/dL [facility] Comment: Interpretive Data Ages < or = 19 years ??Acceptable: ? <170 mg/dL ??Borderline high: ??170-199 mg/dL ??High: ? >or= 200 mg/dL Ages > or = 20 years ??Desirable: ?<200 mg/dL ??Borderline high: ??200-239 mg/dL ??High: ? >or= 240 mg/dL Literature References: 1. Expert Panel on Integrated Guidelines for Cardiovascular Health and Risk Reduction in Children and Adolescents. Pediatrics 2011;128:S213 2. NCEP Expert Panel. Circulation 2004;110:227 Current Interpretive Data was last revised on 2017. Triglycerides 236(H) <=149 mg/dL [facility] Comment: Interpretive Data Ages < or = 9 years ??Acceptable: ? <75 mg/dL ??Borderline high: ??75-99 mg/dL ??High: ? >or= 100 mg/dL Ages 10 to 20 years ??Acceptable: ? <90 mg/dL ??Borderline high: ??90-129 mg/dL ??High: ? >or= 130 mg/dL Ages > or = 20 years ??Desirable: ?<150 mg/dL ??Borderline high: ??150-199 mg/dL ??High: ? 200-499 mg/dL ?Very high: ?? >or= 499 mg/dL Literature References: 1. Expert Panel on Integrated Guidelines for Cardiovascular Health and Risk Reduction in Children and Adolescents. Pediatrics 2011;128:S213 2. NCEP Expert Panel. Circulation 2004;110:227 Current Interpretive Data was last revised on 2017. HDL 59 >=40 mg/dL [facility] Comment: Interpretive Data Ages < or = 19 years ??Acceptable: ? >45 mg/dL ??Borderline low: ?? 40-45 mg/dL ??Low: ? <40 mg/dL Ages > or = 20 years ??Desirable: ?>or= 60 mg/dL ??Low: ? <40 mg/dL Literature References: 1. Expert Panel on Integrated Guidelines for Cardiovascular Health and Risk Reduction in Children and Adolescents. Pediatrics 2011;128:S213 2. NCEP Expert Panel. Circulation 2004;110:227 Current Interpretive Data was last revised on 2017. LDL, calculated 153(H) <=129 mg/dL [facility] Comment: Interpretive Data Ages < or = 19 years ??Acceptable: ? <110 mg/dL ??Borderline high: ??110-129 mg/dL ??High: ?>or= 130 mg/dL Ages > or = 20 years ??Optimal: ? <100 mg/dL ??Near optimal: ?100-129 mg/dL ??Borderline high: ?? 130-159 mg/dL ??High: ?>160 mg/dL Literature References: 1. Expert Panel on Integrated Guidelines for Cardiovascular Health and Risk Reduction in Children and Adolescents. Pediatrics 2011;128:S213 2. NCEP Expert Panel. Circulation 2004;110:227 Current Interpretive Data was last revised on 2017. Non-HDL Cholesterol 200 mg/dL [facility] Comment: Interpretive Data Ages < or = 19 years ??Acceptable: ?<120 mg/dL ??Borderline high: ??120-144 mg/dL ??High: ?>145 mg/dL Ages > or = 20 years ??When triglycerides are >200 mg/dL, Non-HDL cholesterol is a secondary target of ? therapy with treatment goals that are 30 mg/dL greater than the LDL cholesterol target. ? Literature References: 1. Expert Panel on Integrated Guidelines for Cardiovascular Health and Risk Reduction in Children and Adolescents. Pediatrics 2011;128:S213 2. NCEP Expert Panel. Circulation 2004;110:227 Current Interpretive Data was last revised on 2017. Chol/HDL ratio 4 [facility] Blood 10/28/2022 11:5 2 AM CDT 10/28/2022 2:34 PM CDT us Prince Bello MD LAB BLOOD ORDERABLES Chanell bermudez Result [place] [id number] [address] [place] [address] * (ABNORMAL) Urinalysis reflex to microscopic and culture Urine (10/28/2022 11:52 AM CDT) Color, ur Yellow Yellow [facility] Clarity, ur Clear Clear [facility] Specific gravity, ur 1.021 1.003 - 1.030 [facility] pH, urine 5.0 [facility] Protein, ur ql 1+(A) Negative [facility] Glucose, ur ql Negative Negative [facility] Ketones, ur Trace Negative [facility] Bilirubin, ur Negative Negative [facility] Blood, ur 2+(A) Negative [facility] Urobilinogen, ur <2.0 <2.0 mg/dL [facility] Nitrite, ur Negative Negative [facility] Leukocyte esterase, ur Negative Negative [facility] UA reflex comment Reflex to microscopic UA will be performed. [facility] Urine 10/28/2022 11:5 2 AM CDT 10/28/2022 2:34 PM CDT Narrative [facility] - 10/28/2022 2:46 PM CDT ?? Urine pH is affected by diet, medications, systemic acid-base disturbances, and renal tubular function. ??pH may affect urinary stone formation. ??For example, urine pH below 6.0 may help reduce the tendency for calcium phosphate stones and pH greater than 6.0 may reduce the tendency for uric acid stone formation. Source: [facility] [employer]. Last revised 04-30-2017 Prince Bello MD LAB MICROBIOLOGY - GENERA L ORDERABLES Final Result Performing Organization Address [facility] de Phone Number [facility] [id number] [address] [facility] [place] [employer] [place] [address] * T4, free (10/28/2022 11:52 AM CDT) Free T4 1.17 0.90 - 1.70 ng/dL [facility] Blood 10/28/2022 11:5 2 AM CDT 10/28/2022 2:34 PM CDT Prince Bello MD LAB BLOOD ORDERABLES Chanell l Result Performing Organization Address [facility] de Phone Number [facility] [id number] [place] [place] [address] * TSH (10/28/2022 11:52 AM CDT) Thyroid Stimulating Hormone 1.08 0.30 - 4.20 mcIUnit/mL [facility] Blood 10/28/2022 11:5 2 AM CDT 10/28/2022 2:34 PM CDT Prince Bello MD LAB BLOOD ORDERABLES Chanell l Result Performing Organization Address [facility] de Phone Number [facility] [address] [address] [facility] [place] [place] [address] * PSA screen (10/28/2022 11:52 AM CDT) PSA-Total 0.41 <=3.90 ng/mL [facility] Comment: Interpretive Data ?AGE ? SEX ?REFERENCE [...] MD LAB BLOOD ORDERABLES Chanell bermudez Result [facility] [id number] [address] Department of Laboratories [place] [id number] * (ABNORMAL) CBC with auto differential (10/28/2022 11:52 AM CDT) WBC 6.9 3.8 - 9.9 K/cumm [facility] Hgb 14.2 13.0 - 17.5 g/dL [facility] Hct 41.2 38.9 - 50.3 % [facility] Plt 435(H) 150 - 400 K/cumm [facility] MPV 9.9 9.1 - 12.3 fL [facility] RBC 4.39 4.30 - 5.80 M/cumm [facility] MCV 93.8 81.3 - 96.4 fL [facility] MCH 32.3 27.1 - 33.3 pg [facility] MCHC 34.5 32.3 - 35.7 g/dL [facility] RDW CV 12.0 11.1 - 14.9 % [facility] RDW SD 42.3 35.7 - 48.1 fL [facility] NRBC abs 0.00 0.00 - 0.01 K/cumm [facility] Blood 10/28/2022 11:5 2 AM CDT 10/28/2022 2:34 PM CDT us Prince Bello MD LAB BLOOD ORDERABLES Chanell l Result [facility] [id number] [address] [place] [address] documented in this encounter Visit Diagnoses Diagnosis Lipid screening Screening for lipoid disorders Prostate cancer screening Special screening for malignant neoplasm of prostate Elevated blood pressure reading Elevated blood pressure reading without diagnosis of hypertension documented in this encounter Care Teams Coastal/[employer] Defense Officer Relationship Specialty Start Date End [place] [address] PCP - General 07/18/16 documented as of this encounter
--- OUTSIDE RECORDS SUMMARY | 2024-04-16 14:12 | XMS_ITS | Encounter Summary ---
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 Gender Identity Not on file Sexual Orientation Not on file documented as of this encounter Plan of Treatment Not on file documented as of this encounter Procedures Procedure Name Priority Date/Time Associated Diagnosis Comments EGFR Routine 07/15/2023 8:51 AM CDT Lipid screening DIFFERENTIAL AUTO Routine 07/15/2023 8:5 1 AM CDT Lipid screening CBC WITH AUTO DIFFERENTIAL Routine 07/15/2023 8:51 AM CDT Lipid screening LIPID PANEL Routine 07/15/2023 8:51 AM CDT Lipid screening COMPREHENSIVE METABOLIC PANEL Routine 07/15/2023 8:51 AM CDT Lipid screening documented in this encounter Results * eGFR (07/15/2023 8:51 AM CDT) eGFR 87 mL/min/1. 73 m2 Comment: Interpretive Data Reference Interval Normal ?>/= [...] Current interpretive data was last reviewed 2021. Testing performed by: [facility], [id number] [place] [address], [place]., [address] Blood 07/15/2023 8:51 AM CDT 07/15/2023 12:18 PM CDT us Prince Bello MD LAB BLOOD ORDERABLES Chanell bermudez Result [facility] ([place]) 1 [facility] Department [place] [address] * Differential, auto (07/15/2023 8:51 AM CDT) Neutrophil abs 4.0 1.5 - 6.5 K/cumm Comment:Testing performed by : [facility], [address] [place] [address]., [address] Imm gran abs 0.0 0.0 - 0.1 K/cumm [facility] ([place]) Comment:Testing performed by : [facility], [address] [place] [address]., [address] Lymphocyte abs 2.0 0.8 - 3.3 K/cumm [facility] ([place]) Comment:Testing performed by : [facility], [address] [place] [address], [address] Monocyte abs 0.4 0.2 - 0.8 K/cumm [facility] ([place]) Comment:Testing performed by : [facility], [address] [place] [address]., [address] Eosinophil abs 0.1 0.0 - 0.5 K/cumm [facility] ([place]) Comment:Testing performed by : [facility], [address] [place] [address]., [address] Basophil abs 0.1 0.0 - 0.1 K/cumm [facility] ([place]) Comment:Testing performed by : [address] [address] Neutrophil pct 60.2 % [facility] ([place]) Comment: Interpretive Data Percent cell count reference ranges are not reported, since discordance with absolute values may lead to misinterpretation of CBC data. Current Interpretive Data was last revised on 2017. Testing performed by: [facility], [address] [place] [address]., [address] Imm gran pct 0.5 % [facility] ([place]) Comment: Interpretive Data Percent cell count reference ranges are not reported, since discordance with absolute values may lead to misinterpretation of CBC data. Current Interpretive Data was last revised on 2017. Testing performed by: [address], [address] Lymphocyte pct 30.8 % [facility] ([place]) Comment: Interpretive Data Percent cell count reference ranges are not reported, since discordance with absolute values may lead to misinterpretation of CBC data. Current Interpretive Data was last revised on 2017. Testing performed by: [facility], [address] [place] [address]., [address] Monocyte pct 6.3 % [facility] (JESSI) Comment: Interpretive Data Percent cell count reference ranges are not reported, since discordance with absolute values may lead to misinterpretation of CBC data. Current Interpretive Data was last revised on 2017. Testing performed by: [facility], [address] [place] [address]., [address] Eosinophil pct 1.4 % [facility]AINNE Ar[facility] (JESSI) Comment: Interpretive Data Percent cell count reference ranges are not reported, since discordance with absolute values may lead to misinterpretation of CBC data. Current Interpretive Data was last revised on 2017. Testing performed by: [address] [address] Basophil pct 0.8 % [facility] (JESSI) Comment: Interpretive Data Percent cell count reference ranges are not reported, since discordance with absolute values may lead to misinterpretation of CBC data. Current Interpretive Data was last revised on 2017. Testing performed by: [address] [address] Blood 07/15/2023 8:51 AM CDT 07/15/2023 12:12 PM CDT us Prince Bello MD LAB BLOOD ORDERABLES Chanell l Result [facility] (JESSI) 1 [facility] Department of Laboratories [place], [place] [id number] * (ABNORMAL) CBC with auto differential (07/15/2023 8:51 AM CDT) WBC 6.6 3.8 - 9.9 K/cumm Comment:Testing performed by : [address] [address] Hgb 13.4 13.0 - 17.5 g/dL [facility] ([place]) Comment:Testing performed by : [facility], [address] [place] [address], [address] Hct 39.9 38.9 - 50.3 % [facility] ([place]) Comment:Testing performed by : [facility], [address] [place] [address], [address] Plt 421(H) 150 - 400 K/cumm [facility] ([place]) Comment:Testing performed by : [facility], [address] [place] [address], [address] MPV 9.9 9.1 - 12.3 fL [facility] ([place]) Comment:Testing performed by : [facility], [address] [place] [address], [address] RBC 4.25(L) 4.30 - 5.80 M/cumm [facility] ([place]) Comment:Testing performed by : [address], [address] MCV 93.9 81.3 - 96.4 fL [facility] ([place]) Comment:Testing performed by : [address], [address] MCH 31.5 27.1 - 33.3 pg [facility] ([place]) Comment:Testing performed by : [address], [address] MCHC 33.6 32.3 - 35.7 g/dL [facility] ([place]) Comment:Testing performed by : [address], [address] RDW CV 12.2 11.1 - 14.9 % [facility] ([place]) Comment:Testing performed by : [address], [address] RDW SD 42.4 35.7 - 48.1 fL [facility] ([place]) Comment:Testing performed by : [address], [address] NRBC abs 0.00 0.00 - 0.01 K/cumm [facility] ([place]) Comment:Testing performed by : [address], [address] Blood 07/15/2023 8:51 AM CDT 07/15/2023 12:12 PM CDT us Prince Bello MD LAB BLOOD ORDERABLES Chanell bermudez Result [facility]ICA [facility]AILENE ([place]ESSI) 1 [facility] Department [place] [address] * Comprehensive metabolic panel (07/15/2023 8:51 AM CDT) Sodium 142 135 - 145 mmol/L Comment:Testing performed by : [facility], [address] [place] [address]., [address] Potassium, pl 4.1 3.3 - 4.9 mmol/L [facility] ([place]) Comment:Testing performed by : [facility], [address] [place] [address], [address] Chloride 105 97 - 110 mmol/L [facility] ([place]) Comment:Testing performed by : [address], [address] CO2 25 22 - 32 mmol/L [facility] ([place]) Comment:Testing performed by : [facility], [address] [place] [address]., [address] Anion gap 12 2 - 15 mmol/L [facility] ([place]) Comment:Testing performed by : [address] [address] BUN 13 6 - 25 mg/dL [facility] ([place]) Comment:Testing performed by : [address], [address] Creatinine 1.03 0.80 - 1.30 mg/dL [facility] ([place]) Comment:Testing performed by : [address], [address] Glucose 103 70 - 199 mg/dL [facility] ([place]) Comment: Interpretive Data Fasting glucose >/= 126 [...] classification and Diagnosis of Diabetes Diabetes Care 202; 46: S19-S40. Current interpretive data was last revised 2022. Testing performed by: [facility], [address] [place] [address]., [address] Calcium 9.9 8.5 - 10.3 mg/dL [facility] ([place]) Comment:Testing performed by : [address], [address] Bilirubin, total 0.7 0.1 - 1.2 mg/dL [facility] ([place]) Comment:Testing performed by : [facility], [address] [place] [address], [address] Protein, pl 8.1 6.5 - 8.5 g/dL [facility] ([place]) Comment:Testing performed by : [facility], [address] [place] [address], [address] Albumin 5.0 3.5 - 5.0 g/dL [facility] ([place]) Comment:Testing performed by : [address], [address] Alk phos 50 40 - 130 Units/L [facility] ([place]) Comment:Testing performed by : [address], [address] ALT 15 7 - 55 Units/L [facility] ([place]) Comment:Testing performed by : [address], [address] AST 24 10 - 50 Units/L [facility] ([place]) Comment:Testing performed by : [address], [address] Blood 07/15/2023 8:51 AM CDT 07/15/2023 12:12 PM CDT us Prince Bello MD LAB BLOOD ORDERABLES Chanell bermudez Result [facility] ([place]) 1 [facility] Department [place] [address] * (ABNORMAL) Lipid panel (07/15/2023 8:51 AM CDT) Cholesterol 235(H) 30 - 199 mg/dL Comment: Interpretive Data Ages < or = [...] Interpretive Data was last revised on 2017. Testing performed by: [facility], [address] [place] [address]., [address] Triglycerides 187(H) <=149 mg/dL [facility] ([place]) Comment: Interpretive Data Ages < or = [...] Interpretive Data was last revised on 2017. Testing performed by: [facility], [address] [place] [address]., [address] HDL 56 >=40 mg/dL [facility] ([place]) Comment: Interpretive Data Ages < or = [...] Interpretive Data was last revised on 2017. Testing performed by: [facility], [address] [place] [address]., [address] LDL, calculated 142(H) <=129 mg/dL [facility] ([place]) Comment: Interpretive Data Ages < or = [...] Interpretive Data was last revised on 2017. Testing performed by: [facility], [address] [place] [address]., [address] Non-HDL Cholesterol 179 mg/dL [facility] ([place]) Comment: Interpretive Data Ages < or = [...] Interpretive Data was last revised on 2017. Testing performed by: [facility], [address] [place] [address]., [address] Chol/HDL ratio 4 [facility]IL[facility]NA [facility] (JESSI) Comment:Testing performed by : [facility], [address] [place] [address]., [address] Blood 07/15/2023 8:51 AM CDT 07/15/2023 12:12 PM CDT us Prince Bello MD LAB BLOOD ORDERABLES Chanell l Result [facility]ICA [facility]ENE ([place]) 1 [facility] Department [place] [address] documented in this encounter Visit Diagnoses Diagnosis Lipid screening Screening for lipoid disorders documented in this encounter Care Teams Paste Up Worker Relationship Specialty Start Date End Date Prince Bello MD [address] [place] [address] PCP - General 07/18/16 documented as of this encounter
--- OUTSIDE RECORDS SUMMARY | 2024-04-16 14:12 | XMS_ITS | Encounter Summary ---
Author Organization [facility] Medical Group Address [address] [facility] [address] [place] [address] Care Team Providers Care Enrichment Assistant Name Role Phone Prince Bello MD Primary Care Provider [phone] Reason for Visit * Reason Onset Date Comments Authorization/Certification 05/05/2022 Encounter Details Date Type Department Care Team (Late st Contact Info) Description 05/05/2022 Telephone [facility] [address] [address] Simi Malone RN Authorization/Certifica tion Social History Tobacco Use Types Packs/Day Years [...] on file 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 Per rep, we should initiate on or after the six month period. They recommend completing reconsideration for this case on 05/06/22 or after. Spoke with Kilo Carrasco insurance account representative, regarding Fimz-Ao-Extz for CT Chest WO Contrast. Transferred to Hue Shetty Nurse Reviewer, and scheduled Eknw-Ob-Lqmf for 05/06/2022 at 08:30 with kSylar Kim. ASTRID Coats NITY PROFESSOR documented in this encounter Plan of Treatment Not on file documented as of this encounter Visit Diagnoses Not on filedocumented in this encounter Care Teams Enrichment Assistant Relationship Specialty Start Date End Date Prince Bello MD [address] [place] [address] PCP - General 07/18/16 documented as of this encounter
--- OUTSIDE RECORDS SUMMARY | 2024-04-16 14:12 | XMS_ITS | Encounter Summary ---
Author Organization [facility] Healthcare Address [address] [place] [address] Care Team Providers Care Duster Tender Name Role Phone Prince Bello MD Primary Care Provider [phone] [phone] Reason for Visit * Reason Comments Hypertension Pt here for follow u p on hypertension. Follow-up Pt would like meds t o help with ED. 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 Patient ID: Salvatore Queen is a 53 y.o. male Chief Complaint. Chief Complaint Patient presents with Hypertension Pt here for follow up on hypertension. Follow-up Pt would like meds to help with ED. HPI: Salvatore Queen presents today for follow up on HTN. New compliance with losartan. Reports BP improved with compliance. Not taking citalopram. Feels anxiety controlled with control of HTN. Also requesting Viagra. Notes trouble maintaining erection. He tried 1 of his buddies pills and it worked well for him. We reviewed the risks and benefits of Viagra in detail today. Also do not take other people's prescription medications. No other complaints today. 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 He does use chewing tobacco. Encouraged stopping. Denies chest pain, shortness for breath, weakness, numbness, headaches. Past Medical History: Diagnosis Date History of multiple allergies Allergies HX OTHER MEDICAL spontaneous R pneumothorax; Comments: MARIANA 05/09/2014 - Hyperlipidemia Hyperlipidemia Past Surgical History: Procedure Laterality Date BACK SURGERY Back surgery RIKI LYN OTHER SURGICAL HISTORY 2014 spontaneous R pneumothorax: R lung chest tube HOME MEDICATIONS : citalopram (CeleXA) 10 mg tablet ibuprofen (ADVIL,MOTRIN) 600 mg tablet losartan (COZAAR) 50 mg tablet sildenafiL (VIAGRA) 50 mg tablet No Known Allergies Social History Tobacco Use Smoking status: Former Current packs/day: 0.00 Average packs/day: 1 pack/day for 27.0 years (27.0 ttl pk-yrs) Types: Cigarettes Start date: 1987 Quit date: 2014 Years since quittin.2 Smokeless tobacco: Current Types: Chew Tobacco comments: Smoking History Packs/day: 1 Packs for 27 years = 27 year pack history Substance and Sexual Activity Drug use: None Sexual activity: None Alcohol Use: Not on file Family History Problem Relation Age of Onset Other Father 4-v CABG; Coronary artery disease Father Coronary artery disease; Hyperlipidemia Father Hyperlipidemia; Other Mother Alive and well; Esophageal cancer Father esophageal cancer; Review of Systems: Review of Systems Constitutional: Negative for chills and fever. HENT: Negative for trouble swallowing. Eyes: Negative for visual disturbance. Respiratory: Negative for shortness of breath. Cardiovascular: Negative for chest pain and leg swelling. Gastrointestinal: Negative for abdominal pain, constipation and diarrhea. Endocrine: Negative for polydipsia, polyphagia and polyuria. Genitourinary: Negative for difficulty urinating, penile pain and testicular pain. Musculoskeletal: Negative for arthralgias, joint swelling and myalgias. Neurological: Negative for light-headedness and headaches. Psychiatric/Behavioral: Negative for dysphoric mood. The patient is nervous/anxious. Vitals: 07/15/23 0737 BP: 128/80 BP Location: Right arm Patient Position: Sitting Pulse: 72 Resp: 18 Temp: 36.7 ??C (98 ??F) TempSrc: Oral SpO2: 98% Weight: 87.2 kg (192 lb 3.2 oz) Height: 177.8 cm (5' 10 ) Physical Exam: Physical Exam Vitals and nursing note reviewed. Constitutional: General: He is not in acute distress. Appearance: He is well-developed. HENT: Head: Normocephalic and atraumatic. Right Ear: External ear normal. Left Ear: External ear normal. Nose: Nose normal. Eyes: Conjunctiva/sclera: Conjunctivae normal. Pupils: Pupils are equal, round, and reactive to light. Neck: Thyroid: No thyroid mass or thyromegaly. Vascular: No JVD. Trachea: No tracheal deviation. Cardiovascular: Rate and Rhythm: Normal rate and regular rhythm. Heart sounds: Normal heart sounds. Pulmonary: Effort: Pulmonary effort is normal. No respiratory distress. Breath sounds: Normal breath sounds. Abdominal: General: Bowel sounds are normal. There is no distension. Palpations: Abdomen is soft. There is no mass. Tenderness: There is no abdominal tenderness. Musculoskeletal: General: Normal range of motion. Cervical back: Normal range of motion and neck supple. Lymphadenopathy: Cervical: No cervical adenopathy. Skin: General: Skin is warm and dry. Capillary Refill: Capillary refill takes less than 2 seconds. Neurological: Mental Status: He is alert and oriented to person, place, and time. Sinus rhythm with a rate of 63 and no acute ischemic changes. The axis and intervals are normal. ECG is unchanged in morphology compared to that from 01/20/2018. Assessment/Plan Diagnoses and all orders for this visit: Hypertension, essential (Primary) Assessment & Plan: Controlled on losartan. Will continue. Orders: - ECG 12 lead - ECG 12 lead Moderate episode of recurrent major depressive disorder (HCC) Assessment & Plan: Reports stable without medication treatment. Will continue to monitor. BMI 27.0-27.9,adult Other male erectile dysfunction Assessment & Plan: Will initiate Viagra. We reviewed the risks and benefits as well as red flags in detail. Will check testosterone level as well. He is agreeable and states understanding. Will monitor response. Orders: - Testosterone, Total and Free, Serum; Future Other orders - sildenafiL (VIAGRA) 50 mg tablet; Take 1 tablet (50 mg total) by mouth daily as needed for erectile dysfunction All past family, medical, and social history were reviewed and updated in the EMR as well as current medications. Patient offered no further complaints and was in agreement with plan of care. Patientwas advised regarding dosage, use, and side effects of any new medications. Patient was advised to f/u in office with any worsening or little to no improvement of symptoms. Patient was advised to follow-up regarding the results of testing ordered in office today and that they should hear from us regarding the results in 2-3 business days, discussed benefits of MyChart in regard to patient experience. The patient was given the opportunity to have all questions answered today and was in agreementwith the plan of care. BMI Follow-up includes: nutrition counseling. Body mass index is 27.58 kg/m??. There may be grammatical errors in this note due to use of voice recognition software. Agnieszka Hargrove NP documented in this encounter Miscellaneous Notes * Assessment & Plan Note - Agnieszka Hargrove NP - 07/15/2023 8:19 AM CDT Associated Problem(s): Hypertension, essential Controlled on losartan. Will continue. * Assessment & Plan Note - Agnieszka Hargrove NP - 07/15/2023 8:19 AM CDT Associated Problem(s): Other male erectile dysfunction Will initiate Viagra. We reviewed the risks and benefits as well as red flags in detail. Will checktestosterone level as well. He is agreeable and states understanding. Will monitor response. * Assessment & Plan Note - Agnieszka Hargrove NP - 07/15/2023 8:18 AM CDT Associated Problem(s): Recurrent major depression (HCC) Reports stable without medication treatment. Will continue to monitor. documented in this encounter Plan of Treatment Not on file documented as of this encounter Procedures Procedure Name Priority Date/Time Associated Diagnosis Comments ECG 12-LEAD Routine 07/15/2023 9:40 AM CDT Hypertension, essential ECG 12-LEAD Routine 07/15/2023 9:26 AM CDT Hypertension, essential documented in this encounter Results * ECG 12 lead (07/15/2023 9:40 AM CDT) us Agnieskza Hargrove NP ECG ORDERABLES Final Resu lt * ECG 12 lead (07/15/2023 9:26 AM CDT) us Agnieszka Hargrove NP ECG ORDERABLES Final Resu lt * Testosterone, Total and Free, Serum (07/15/2023 8:50 AM CDT) [facility] Testosterone 628 240 - 950 ng/dL [facility] Comment: ADDITIONAL INFORMATION Testing performed by Liquid Chromatography-Tandem Mass Spectrometry (LC-MS/MS). This test was developed and its performance characteristics determined by [facility] in a manner consistent with CLIA requirements. This test has not been cleared or approved by the U.S. Food and Drug Administration. Test Performed by: [facility] [address] [place] [address] Coping Machine Operator: Evans Saab M.D. Ph.D.; CLIA# [id number] Testing performed by: [address] [address] Testosterone, free 14.9 4.06 - 15.6 ng/dL [facility]ICA DOWN[facility]) Comment: ADDITIONAL INFORMATION This test was developed and its performance characteristics determined by [facility] in a manner consistent with CLIA requirements. This test has not been cleared or approved by the U.S. Food and Drug Administration. Testing performed by: [address] [address] Blood 07/15/2023 8:50 AM CDT 07/15/2023 12:05 PM CDT us Agnieszka W. Hargrove BEHAVIORAL HEALTH SPECIALIST LAB BLOOD ORDERABLES Final Result [facility]ICA DENT ([place]) 1 [facility] Department [place] [address] [facility] documented in this encounter Visit Diagnoses Diagnosis Hypertension, essential- Primary Unspecified essential hypertension Moderate episode of recurrent major depressive disorder (HCC) BMI 27.0-27.9,adult Other male erectile dysfunction documented in this encounter Care Teams Duster Tender Relationship Specialty Start Date End Date Prince Bello MD [address] [place] [address] PCP - General 07/18/16 documented as of this encounter
--- OUTSIDE RECORDS SUMMARY | 2024-04-16 14:12 | XMS_ITS | Encounter Summary ---
Author Organization [facility] Medical [facility] Address [address] [facility] [address] [place] [address] Care Team Providers Care Perforator Operator Name Role Phone Prince Bello MD Primary Care Provider [phone] [phone] Reason for Visit * Reason Onset Date Comments Test Results 11/05/2021 Encounter Details Date Type Department Care Team (Late st Contact Info) Description 11/05/2021 Telephone [facility] [address] [place] [address] Prince Bello MD [address] [place] [address] Test Results Social History Tobacco Use Types Packs/Day Years [...] on file 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 Queen, The CT scan of the chest shows minimal changes that appear benign. Radiology is recommending a 6 month f/u study. Thanks! Prince Bello MD documented in this encounter Plan of Treatment Not on file documented as of this encounter Visit Diagnoses Not on filedocumented in this encounter Care Teams Perforator Operator Relationship Specialty Start Date End [place] [address] PCP - General 07/18/16 documented as of this encounter
--- OUTSIDE RECORDS SUMMARY | 2024-04-16 14:12 | XMS_ITS | Encounter Summary ---
Author Organization [facility] Address [address] [address] Care Team Providers Care Punch Hand Name Role Phone Prince Bello MD Primary Care Provider [phone] [phone] Reason for Visit * Reason Comments Follow-up Pt is here for a uday ck up. Encounter Details Date Type Department Care Team (Late st Contact Info) Description 10/28/2022 11:00 AM CDT Office Visit 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 Gender Identity Not on file Sexual Orientation Not on file documented as of this encounter Last Filed Vital Signs Vital Sign Reading Time Taken Comments Blood Pressure 150/96 10/28/2022 11:02 AM CDT Pulse 84 10/28/2022 11:02 AM CDT Temperature 36.9 ??C (98.4 ??F) 10/28/2022 11:02 AM C DT Respiratory Rate - - Oxygen Saturation 98% 10/28/2022 11:02 AM CDT Inhaled Oxygen Concentration - - Weight 84.4 kg (186 lb 1.6 oz) 10/28/2022 11:02 AM CDT Height 177.8 cm (5' 10 ) 10/28/2022 11:02 AM CDT Body Mass Index 26.7 10/28/2022 11:02 AM CDT documented in this encounter Ordered Prescriptions Prescription Sig Dispense Quantity Refills Last Filled Start Date End Date ibuprofen (ADVIL,MOTRIN) 600 mg tablet Take 1 tablet (600 mg total) by mouth every 8 (eight) hours as needed for pain 90 tablet 3 10/28/2022 02/10/2023 citalopram (CeleXA) 10 mg tablet Take 1 tablet (10 mg total) by mouth daily 30 tablet 3 10/28/2022 02/10/2023 documented in this encounter Progress Notes * Prince Bello MD - 10/28/2022 11:00 AM CDT Images from the original note were not included. [facility] [place] [place] Chief Complaint. Chief Complaint Patient presents with Follow-up Pt is here for a check up. HPI. Patient is a 52 y.o. male Patient refilled on ibuprofen and will deny any GI sypmtoms and will montior response. NO blood in the stools, no black/tarry stools. NO increased GERD Patient dealing with increaesd stressors. Patient with note that work stressors are crossing over into personal life. Decreased motivation at home. Increased fatigue, increased irritabiltiy. Decreased energy. No SI/HI on direct quetsioning. Adjustment in nature and will follow repsonse. Noted to have elevated blood pressure at the present time. Pastinet with no prior elvation. WIll montior home BP and office bp over hte next couple of weeks and follow response. No increased caffeine, energy drinks. Past Medical History: Diagnosis Date History of multiple allergies Allergies HX OTHER MEDICAL spontaneous R pneumothorax; Comments: MARIANA 05/09/2014 - Hyperlipidemia Hyperlipidemia Past Surgical History: Procedure Laterality Date BACK SURGERY Back surgery RIKI LYN OTHER SURGICAL HISTORY 2014 spontaneous R pneumothorax: R lung chest tube HOME MEDICATIONS : ibuprofen (ADVIL,MOTRIN) 600 mg tablet citalopram (CeleXA) 10 mg tablet ibuprofen (ADVIL,MOTRIN) 600 mg tablet cetirizine (ZyrTEC) 5 mg tablet fluticasone propionate (FLONASE) 50 mcg/actuation nasal spray folic acid (FOLVITE) [address] (PROTONIX) 40 mg EC tablet No Known Allergies Social History Tobacco Use Smoking status: Former Packs/day: 1.00 Years: 27.00 Pack years: 27.00 Types: Cigarettes Start date: 1987 Quit date: 2014 Years since quittin.5 Smokeless tobacco: Current Types: Chew Tobacco comments: [...] Systems: Review of Systems Constitutional: Negative for activity change, fatigue and fever. HENT: Negative for postnasal drip and rhinorrhea. Respiratory: Negative for chest tightness, shortness of breath and wheezing. Cardiovascular: Negative for chest pain and leg swelling. Gastrointestinal: Negative for abdominal pain, blood in stool, constipation, diarrhea, nausea and vomiting. Endocrine: Negative for cold intolerance and heat intolerance. Genitourinary: Negative for dysuria, hematuria and urgency. Musculoskeletal: Positive for arthralgias. Negative for back pain, myalgias and neck pain. Skin: Negative for rash. Neurological: Negative for dizziness, tremors, weakness, light-headedness and headaches. Hematological: Negative for adenopathy. Psychiatric/Behavioral: Positive for dysphoric mood and sleep disturbance. Negative for suicidal ideas. The patient is nervous/anxious. BP 150/96 (BP Location: Right arm, Patient Position: Sitting) Pulse 84 Temp 36.9 ??C (98.4 ??F)(Oral) Ht 177.8 cm (5' 10 ) Wt 84.4 kg (186 lb 1.6 oz) SpO2 98% BMI 26.70 kg/m?? Physical Exam: Physical Exam Vitals reviewed. Constitutional: General: He is not in acute distress. HENT: Mouth/Throat: Pharynx: No oropharyngeal exudate. Eyes: General: No scleral icterus. Neck: Vascular: No JVD. Cardiovascular: Rate and Rhythm: Normal rate and regular rhythm. Heart sounds: No murmur heard. Pulmonary: Effort: Pulmonary effort is normal. No respiratory distress. Breath sounds: Normal breath sounds. Abdominal: General: Bowel sounds are normal. Palpations: Abdomen is soft. Musculoskeletal: Cervical back: Neck supple. Right lower leg: No edema. Left lower leg: No edema. Lymphadenopathy: Cervical: No cervical adenopathy. Skin: Capillary Refill: Capillary refill takes less than 2 seconds. Findings: No erythema or rash. Neurological: Mental Status: He is alert and oriented to person, place, and time. Motor: No weakness. Gait: Gait normal. Psychiatric: Attention and Perception: Attention normal. Mood and Affect: Mood is anxious and depressed. Speech: Speech normal. Behavior: Behavior normal. Behavior is cooperative. Thought Content: Thought content normal. Thought content does not include homicidal or suicidal ideation. Thought content does not include homicidal or suicidal plan. Cognition and Memory: Cognition normal. Comments: Good insight, no decreased concentration. Assessment & Plan: Diagnoses and all orders for this visit: Elevated blood pressure reading (Primary) - TSH; Future - T4, free; Future - Urinalysis reflex to microscopic and culture Urine; Future Look for evdince of secondary hypertension and will montior repsonse. Lipid screening - Lipid panel; Future - Comprehensive metabolic panel; Future - CBC with auto differential; Future Esophageal dysphagia - Ambulatory referral to Gastroenterology; Future Family hx of espohageal cancewr. Refer for EGD and will humza ho. Colon cancer screening - Ambulatory referral to Gastroenterology; Future Referral for colon cancer screening. Prostate cancer screening - PSA screen; Future Adjustment disorder with mixed anxiety and depressed mood Initiate citlaopram and will montior repsonse. Other orders - citalopram (CeleXA) 10 mg tablet; Take 1 tablet (10 mg total) by mouth daily - ibuprofen (ADVIL,MOTRIN) 600 mg tablet; Take 1 tablet (600 mg total) by mouth every 8 (eight) hours as needed for pain BMI Follow-up includes: nutrition counseling and exercise counseling. Body mass index is 26.7 kg/m??. Prince Bello MD documented in this encounter Miscellaneous Notes * Addendum Note - Heather Cole - 10/28/2022 11:00 AM CDTAddended by: HEATHER COLE on: 10/28/2022 11:52 AM Modules accepted: Orders documented in this encounter Plan of Treatment Not on file documented as of this encounter Results * (ABNORMAL) Urinalysis reflex to microscopic and [...] tendency for uric acid stone formation. Source: [employer]. Last revised 04-30-2017 us Prince Bello MD LAB MICROBIOLOGY - GENERA L ORDERABLES Final Result Performing Organization Address [facility] de Phone Number [facility] [address] [address] [facility] [place] [address] * T4, free (10/28/2022 11:52 AM CDT) Free T4 1.17 0.90 - 1.70 ng/dL [facility] Blood 10/28/2022 11:5 2 AM CDT 10/28/2022 2:34 PM CDT Prince Bello MD LAB BLOOD ORDERABLES Chanell l Result Performing Organization Address [facility] de Phone Number [facility] [address] [address] [facility] [place] [address] * TSH (10/28/2022 11:52 AM CDT) Thyroid Stimulating Hormone 1.08 0.30 - 4.20 mcIUnit/mL [facility] Blood 10/28/2022 11:5 2 AM CDT 10/28/2022 2:34 PM CDT Prince Bello MD LAB BLOOD ORDERABLES Chanell l Result Performing Organization Address [facility] de Phone Number [facility] [address] [address] [facility] [place] [address] * PSA screen (10/28/2022 11:52 AM CDT) PSA-Total 0.41 <=3.90 ng/mL [facility] Comment: Interpretive Data ?AGE ? SEX ?REFERENCE [...] MD LAB BLOOD ORDERABLES Chanell bermudez Result [facility] [address] [address] Department [place] [address] * (ABNORMAL) CBC with auto differential (10/28/2022 11:52 AM CDT) WBC 6.9 3.8 - 9.9 K/cumm [facility] Hgb 14.2 13.0 - 17.5 g/dL [facility] Hct 41.2 38.9 - 50.3 % [facility] Plt 435(H) 150 - 400 K/cumm [facility] MPV 9.9 9.1 - 12.3 fL [facility] RBC 4.39 4.30 - 5.80 M/cumm [facility] MCV 93.8 81.3 - 96.4 fL [facility] MCH 32.3 27.1 - 33.3 pg [facility] MCHC 34.5 32.3 - 35.7 g/dL [facility] CH RDW CV 12.0 11.1 - 14.9 % [facility] CH RDW SD 42.3 35.7 - 48.1 fL [facility] CH NRBC abs 0.00 0.00 - 0.01 K/cumm [facility] Blood 10/28/2022 11:5 2 AM CDT 10/28/2022 2:34 PM CDT Prince Bello MD LAB BLOOD ORDERABLES [place] [address] [address] Department [place] [address] * (ABNORMAL) Comprehensive metabolic panel (10/28/2022 11:52 [...] MD LAB BLOOD ORDERABLES Chanell aidan Result [facility] [address] [address] Department of Laboratories [place] [id number] * (ABNORMAL) Lipid panel (10/28/2022 11:52 AM CDT) Pathologist [facility] Cholesterol 259(H) 30 - 199 mg/dL MONICA [...] on 2017. HDL 59 >=40 mg/dL [facility] Comment: Interpretive Data Ages [...] 2017. LDL, calculated 153(H) <=129 mg/dL [facility] Comment: Interpretive Data Ages [...] on 2017. Non-HDL Cholesterol 200 mg/dL [facility] Comment: Interpretive Data Ages [...] last revised on 2017. Chol/HDL ratio 4 [facility] Blood 10/28/2022 11:5 2 AM CDT 10/28/2022 2:34 PM CDT us Prince Bello MD LAB BLOOD ORDERABLES Chanell l Result [facility] [address] [address] Department [place] [address] documented in this encounter Visit Diagnoses Diagnosis Elevated blood pressure reading- Primary Elevated blood pressure reading without diagnosis of hypertension Lipid screening Screening for lipoid disorders Esophageal dysphagia Dysphagia, pharyngoesophageal phase Colon cancer screening Special screening for malignant neoplasms, colon Prostate cancer screening Special screening for malignant neoplasm of prostate Adjustment disorder with mixed anxiety and depressed mood Lipid screening Screening for lipoid disorders Prostate cancer screening Special screening for malignant neoplasm of prostate Elevated blood pressure reading Elevated blood pressure reading without diagnosis of hypertension documented in this encounter Discontinued Medications Medication Sig Discontinue Reason Start Date End Da te pantoprazole DR (PROTONIX) 40 mg EC tablet Take 1 tablet (40 mg total) by mouth daily Therapy completed 08/23/2021 10/28/2022 folic acid (FOLVITE) 400 mcg tablet Take 400 mcg by mouth daily. Therapy completed 10/28/2022 fluticasone propionate (FLONASE) 50 mcg/actuation nasal spray Administer 1 spray into each nostril daily Therapy completed 10/28/2022 cetirizine (ZyrTEC) 5 mg tablet Take 5 mg by mouth daily Therapy completed 10/28/2022 ibuprofen (ADVIL,MOTRIN) 600 mg tablet Take 1 tablet (600 mg total) by mouth every 8 (eight) hours as needed for pain Reorder 02/07/2021 10/28/2022 documented as of this encounter Care Teams Punch Hand Relationship Specialty Start Date End Date Prince Bello MD [address] [place] [address] PCP - General 07/18/16 documented as of this encounter
--- OUTSIDE RECORDS SUMMARY | 2024-04-16 14:12 | XMS_ITS | Encounter Summary ---
Author Organization [facility] Medical Group Address [address] [facility] [address] [place] [address] Care Team Providers Care Program Attendant Name Role Phone Prince Bello MD Primary Care Provider [phone] [phone] Encounter Details Date Type Department Care Team (Late st Contact Info) Description 04/08/2021 Orders Only [facility] [address] [place] [address] Prince Bello MD [address] [place] [address] Orgasmic headache (Primary Dx) Social History Tobacco Use Types Packs/Day Years Used Date Smoking Tobacco: Former Smokeless Tobacco: Current Comments:Smoking History Pac ks/day: 1 Packs Alcohol Use Standard Drinks/Week Comments Yes 0 (1 standard drink = 0.6 oz pur e alcohol) Occassional PHQ-2 Answer Date Recorded PHQ-2 Total Score (If total score is 3 or more points, staff should administer the PHQ-9) 0 02/07/2021 Sex and Gender Information Value Date Recorded Sex Assigned at Not on file 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 Gender Identity Not on file Sexual Orientation Not on file documented as of this encounter Progress Notes * Agnieszka Sen MA - 04/08/2021 4:19 PM CST 05/08/2021 - Pending Authorization ERS COMPENSATION LEGAL SECRETARY * Agnieszka Sen MA - 04/08/2021 4:19 PM CST 05/08/2021 - Pending Authorization ERS COMPENSATION LEGAL SECRETARY * Agnieszka Sen MA - 04/08/2021 4:19 PM CST Pending Authorization * Agnieszka Sen MA - 04/08/2021 4:19 PM CST 07/08/21 Pending Authorization documented in this encounter Plan of Treatment Not on file documented as of this encounter Visit Diagnoses Diagnosis Orgasmic headache- Primary Headache associated with sexual activity documented in this encounter Care Teams Program Attendant Relationship Specialty Start Date End [place] [address] PCP - General 07/18/16 documented as of this encounter
--- OUTSIDE RECORDS SUMMARY | 2024-04-16 14:12 | XMS_ITS | Encounter Summary ---
Author Organization [facility] Address [address] [facility] [address] [place] [address] Care Team Providers Care Efficiency Miner Name Role Phone Prince Bello MD Primary Care Provider [phone] [phone] Reason for Referral * MRI/CAT/PET Scan (Routine) - Closed Specialty Diagnoses / Procedures Referred By Contac t Referred To Contact Radiology Diagnoses Screening for lung cancer Procedures CT Chest WO Contrast F/U Lung Screen Protocol CT Chest WO Contrast Prince Bello MD [address] [place] [address] Phone: tel: fax: [address] [address] Referral ID Status Reason Start Date Expiration Date Visits Re quested Visits Authorized [id number] Closed 05/07/2022 08/04/2022 1 1 Encounter Details Date Type Department Care Team (Late st Contact Info) Description 11/04/2021 Orders Only [facility] [address] [place] [address] Prince Bello MD [address] [place] [address] Screening for lung cancer (Primary Dx) Social History Tobacco Use Types [...] on file 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 CT CHEST WO CONTRAST [...] PM T: ??05/07/2022 12:37 PM Report ID: [id number] Reading Location: ??[id number] Procedure Note Star Bhat MD - 05/07/2022 [...] Star Davis M.D. RL: JOELLEN Report ID: [id number] Reading Location: [place] [address] Prince Bello MD IMG CT PROCEDURES Final R esult documented in this encounter Visit Diagnoses Diagnosis Screening for lung cancer- Primary Screening for lung cancer documented in this encounter Care Teams Efficiency Miner Relationship Specialty Start Date End Date Prince Bello MD [address] [place] [address] PCP - General 07/18/16 documented as of this encounter
--- OUTSIDE RECORDS SUMMARY | 2024-04-16 14:12 | XMS_ITS | Encounter Summary ---
Author Organization [facility] Medical [facility] Address [address] [address] Care Team Providers Care Ad Operations Intern Name Role Phone Prince Bello MD Primary Care Provider [phone] [phone] Encounter Details Date Type Department Care Team (Late st Contact Info) Description 08/23/2021 12:15 PM CDT Lab [facility] Outpatient Lab at [address] [id number] Lipid screening; Screening for lung cancer; Colon cancer screening; Dysphagia, unspecified type Social History Tobacco Use Types Packs/Day Years Used Date Smoking Tobacco: Former Smokeless Tobacco: Current Chew Comments:Smoking History Pac ks/day: 1 Packs Alcohol Use Standard Drinks/Week Comments Yes 0 (1 standard drink = 0.6 oz pur e alcohol) Occassional PHQ-2 Answer Date Recorded PHQ-2 Total Score (If total score is 3 or more points, staff should administer the PHQ-9) 0 08/23/2021 Sex and Gender Information Value Date Recorded Sex Assigned at Not on file 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
--- OUTSIDE RECORDS SUMMARY | 2024-04-16 14:12 | XMS_ITS | Encounter Summary ---
Author Organization [facility] Medical [facility] Address [address] [facility] [address] [place] [address] Care Team Providers Care Optometric Technician Name Role Phone Prince Bello MD Primary Care Provider [phone] [phone] Reason for Visit * Reason Onset Date Comments Authorization/Certification 05/05/2022 Encounter Details Date Type Department Care Team (Late st Contact Info) Description 05/05/2022 Telephone [facility] [address] [place] [address] Prince Bello MD [address] [place] [address] Authorization/Certific ation Social History Tobacco Use Types Packs/Day Years Used Date Smoking Tobacco: Former Cigarettes 1 16 05 988 - 2014 Smokeless Tobacco: Current Chew [...] on file 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 Authorization received. R TRIMMER * Telephone Encounter - Simi Malone RN - 05/05/2022 1:21 PM CST Spoke with patient. He states his insurance provider is now [facility]. He is no longer active with [email or web address]. Asked patient to provide new insurance card for initiation of prior authorization. Verbalized understanding. R TRIMMER * Telephone Encounter - Jose Crews - 05/05/2022 12:55 PM CST Authorization/Certification Type of Auth/Cert Needed: Pre- Certification for Test Type of caller:Facility Type of test needed (CPT code if available): CT Chest Reason for test or diagnosis (diagnosis code if available): Z12.2 Is insurance in chart accurate? Yes- but also secondary is requesting auth- no card copy available,obtained info below from [facility] PreArrival. [facility] Patient is Group#: [id number] Facility name: [facility] Facility NPI# (if available): Facility phone#: [phone] opt 3 Facility fax#: na Date test is scheduled: 05/07/22 Caller's Callback #: [phone] opt 3 Additional Comments: Rachel called to inform that they do show the current peer to peer efforts, but also show that patient's secondary coverage through [facility] is requesting an auth/referral for this as well. [facility] coverage not in system- initially disconnected but reached back out for information, Rosalie in [facility] Pre Arrival was able to provide insurance id and group number. Does message need to be routed?Yes-Action Needed R TRIMMER documented in this encounter Plan of Treatment Not on file documented as of this encounter Visit Diagnoses Not on filedocumented in this encounter Care Teams Optometric Technician Relationship Specialty Start Date End Date Prince Bello MD [address] [place] [address] PCP - General 07/18/16 documented as of this encounter
--- OUTSIDE RECORDS SUMMARY | 2024-04-16 14:12 | XMS_ITS | Encounter Summary ---
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 This test was developed and its performance characteristics determined by [facility] in a manner consistent with CLIA requirements. This test has not been cleared or approved by the U.S. Food and Drug Administration. Test Performed by: [facility] [address] [place] [address] Youth Specialist: Evans Saab M.D. Ph.D.; CLIA# [id number] Testing performed by: [address], [address] Testosterone, free 14.9 4.06 - 15.6 ng/dL MONICA DENT ([place]) Comment: ADDITIONAL INFORMATION This test was developed and its performance characteristics determined by [facility] in a manner consistent with CLIA requirements. This test has not been cleared or approved by the U.S. Food and Drug Administration. Testing performed by: [facility], [address] [place] [address], [id number] Blood 07/15/2023 8:50 AM CDT 07/15/2023 12:05 PM CDT us Agnieszka Hargrove HOSPICE PLAN ADMINISTRATOR LAB BLOOD ORDERABLES Final Result MONICA JAILENE ([place]) 1 [facility] Department of [place] [address] [facility] Lab documented in this encounter Visit Diagnoses Diagnosis Other male erectile dysfunction documented in this encounter Care Teams Arbor Press Operator Relationship Specialty Start Date End Date [place] [address] PCP - General 07/18/16 documented as of this encounter
--- OUTSIDE RECORDS SUMMARY | 2024-04-16 14:12 | XMS_ITS | Encounter Summary ---
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 * Telephone Encounter - Vidya Krause - 07/13/2023 1:53 PM CDT Appointment Request What visit type does the patient need? Visit Type: Established Patient What is the reason for the visit? Patient is needing to get medication for blood pressure and address other health concerns. What is the reason we were unable to schedule the appointment? Current appointment availability didnot meet patient's need. If applicable, were all members of the patient's PCP care team offered (e.g., nurse practioner(s), physician assistant farm operations manager(s)) ? Yes Additional Comments: Patient did not desire to wait until September to be seen. Does message need to be routed? Yes-Action Needed documented in this encounter Plan of Treatment Not on file documented as of this encounter Visit Diagnoses Not on filedocumented in this encounter Care Teams Buckram Sewer Relationship Specialty Start Date End Date Prince Bello MD [address] [place] [address] PCP - General 07/18/16 documented as of this encounter
--- OUTSIDE RECORDS SUMMARY | 2024-04-16 14:12 | XMS_ITS | Encounter Summary ---
Author Organization [facility] Healthcare Address [address] [place] [address] Care Team Providers Care Reconsignment Clerk Name Role Phone Prince Bello MD Primary Care Provider [phone] [phone] Reason for Referral * MRI/CAT/PET Scan (Routine) - Closed Specialty Diagnoses / Procedures Referred By Contac t Referred To Contact Radiology Diagnoses Screening for lung cancer Procedures CT Chest WO Contrast F/U Lung Screen Protocol CT Chest WO Contrast Prince Bello MD [address] [place] [address] Phone: tel: fax: [address] [address] Referral ID Status Reason Start Date Expiration Date Visits Re quested Visits Authorized [id number] Closed 05/07/2022 08/04/2022 1 1 COLLECTOR Reason for Visit * MRI/CAT/PET Scan (Routine) - Closed Specialty Diagnoses / Procedures Referred By Contac t Referred To Contact Radiology Diagnoses Screening for lung cancer Procedures CT Chest WO Contrast F/U Lung Screen Protocol CT Chest WO Contrast Prince Bello MD [address] [place] [address] Phone: tel: fax: [address] [phone] Referral ID Status Reason Start Date Expiration Date Visits Re quested Visits Authorized [id number] Closed 05/07/2022 08/04/2022 1 1 Encounter Details Date Type Department Care Team (Latest Contact Info) Description 05/07/2022 7:13 AM CITY COLLECTOR - 05/07/2022 11:59 PM CITY COLLECTOR Hospital Encounter [facility] [address] [place] [address] Prince Bello MD [address] [place] [address] Screening for lung cancer Discharge Disposition: Discharge to home or self [...] on file 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 Gender Identity Not on file Sexual Orientation Not on file documented as of this encounter Last Filed Vital Signs Vital Sign Reading Time Taken Comments Blood Pressure - - Pulse - - Temperature - - Respiratory Rate - - Oxygen Saturation - - Inhaled Oxygen Concentration - - Weight 85.7 kg (189 lb) 05/07/2022 7:28 AM CITY COLLECTOR Height 177.8 cm (5' 10 ) 05/07/2022 7:28 AM CITY COLLECTOR Body Mass Index 27.12 05/07/2022 7:28 AM CITY COLLECTOR documented in this encounter Medications at Time of Discharge cetirizine (ZyrTEC) 5 mg tablet Take 5 mg by mouth daily 3 fluticasone propionate (FLONASE) 50 mcg/actuation nasal spray Administer 1 spray into each nostril daily 3 folic acid (FOLVITE) 400 mcg tablet Take 400 mcg by mouth daily. 3 ibuprofen (ADVIL,MOTRIN) 600 mg tablet Take 1 tablet (600 mg total) by mouth every 8 (eight) hours as needed for pain 90 tablet 3 02/07/[address] (PROTONIX) 40 mg EC tablet Take 1 tablet (40 mg total) by mouth daily 30 tablet 5 08/23/2021 3 documented as of this encounter Discharge Disposition Disposition Code Departure Means Destination Discharge to home or self care documented in this encounter Plan of Treatment Not on file documented as of this encounter Procedures Procedure Name Priority Date/Time Associated Diagnosis Comments CT CHEST WO CONTRAST F/U LUNG SCREEN PROTOCOL Schedule Routine, Read Routine (OP Routine) 05/07/2022 7:28 AM CITY COLLECTOR Screening for lung cancer documented in this encounter Results * CT Chest WO Contrast F/U Lung Screen Protocol (05/07/2022 7:28 AM CITY COLLECTOR) Anatomical Region Laterality Modality Chest N/A Computed Tomogra phy 05/07/2022 12:3 0 PM CITY COLLECTOR Narrative 05/07/2022 12:37 PM CITY COLLECTOR EXAM DESCRIPTION: ?? CT CHEST WO CONTRAST [...] PM T: ??05/07/2022 12:37 PM Report ID: [id number] Reading Location: ??[id number] Procedure Note Star Bhat MD - 05/07/2022 [...] Star Davis M.D. RL: JOELLEN Report ID: [id number] Reading Location: [place] [address] us Prince Bello MD IMG CT PROCEDURES Final R esult documented in this encounter Visit Diagnoses Diagnosis Screening for lung cancer documented in this encounter Care Teams Reconsignment Clerk Relationship Specialty Start Date End Date [place] [address] PCP - General 07/18/16 documented as of this encounter
--- OUTSIDE RECORDS SUMMARY | 2024-04-16 14:12 | XMS_ITS | Encounter Summary ---
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 'S SWIM COACH documented in this encounter Plan of Treatment Not on file documented as of this encounter Visit Diagnoses Not on filedocumented in this encounter Care Teams Configuration Engineer Relationship Specialty Start Date End Date Prince Bello MD [address] [place] [address] PCP - General 07/18/16 documented as of this encounter
--- OUTSIDE RECORDS SUMMARY | 2024-04-16 14:12 | XMS_ITS | Encounter Summary ---
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
--- OUTSIDE RECORDS SUMMARY | 2024-04-16 14:12 | XMS_ITS | Encounter Summary ---
Author Organization [facility] Healthcare Address [address] [place] [address] Care Team Providers Care Military Personnel Specialist Name Role Phone Prince Bello MD Primary Care Provider [phone] [phone] Reason for Referral * MRI/CAT/PET Scan (Routine) - Closed Specialty Diagnoses / Procedures Referred By Contac t Referred To Contact Radiology Diagnoses Cigarette nicotine dependence in remission Procedures CT Lung Cancer Screening CT Lung Cancer Screening Prince Bello MD [address] [place] [address] Phone: tel: fax: [address] [phone] Referral ID Status Reason Start Date Expiration Date Visits Re quested Visits Authorized [id number] Closed 10/04/2021 04/02/2022 1 1 Reason for Visit * MRI/CAT/PET Scan (Routine) - Closed Specialty Diagnoses / Procedures Referred By Contac t Referred To Contact Radiology Diagnoses Cigarette nicotine dependence in remission Procedures CT Lung Cancer Screening CT Lung Cancer Screening Prince Bello MD [address] [place] [address] Phone: tel: fax: [address] [phone] Referral ID Status Reason Start Date Expiration Date Visits Re quested Visits Authorized [id number] Closed 10/04/2021 04/02/2022 1 1 Encounter Details Date Type Department Care Team (Latest Contact Info) Description 11/01/2021 7:45 AM CDT - 11/01/2021 11:59 PM CDT Hospital Encounter [facility] [address] [place] [address] Prince Bello MD [address] [place] [address] Cigarette nicotine dependence in remission Discharge Disposition: Discharge to home or self [...] on file 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 CT LUNG CANCER SCREENING REASON FOR STUDY: Screening CT of the chest in a ?? former ??smoker with a ??25 ?? pack year smoking history. Additional history: None. TECHNIQUE: Low dose CT scan of the chest was performed without intravenous contrast using helical scanning technique. The exam extends from the lung apices through the lung bases. Automatic exposure control was used as a dose optimization technique. NOTE: This study was performed for the specific purposes of lung cancer screening and is not an alternative to diagnostic chest CT. RADIATION DOSE: CT dose index volume (CTDIvol) = ?? 1.60 ??mGy COMPARISON: ?? None FINDINGS: SMOKING RELATED LUNG DISEASE: Inferior lung bases are excluded from field of view. ?? Mild upper lobe predominant centrilobular and paraseptal emphysema. ?? Mild biapical pleuroparenchymal consolidations, likely scarring. LUNG NODULES: ?? There is scattered nodules within the apices adjacent to the presumed scarring which may represent scarring as well. ??For reference is a 4 mm right apical nodule (37) 5 mm right apical nodule (35). ??6 mm left apical nodule (44). ??3 mm right apical nodule (48). ??3 mm posterior right lower lobe nodule (115). OTHER: ?? No pleural effusion or pneumothorax. ??No mediastinal or hilar lymphadenopathy. ??Heart is normal in size with coronary atherosclerosis. ?? Prominence of the aortic root obscured by motion. ??The aorta is otherwise normal in caliber. ??No axillary lymphadenopathy or chest wall mass is seen. ?? Images of the upper abdomen demonstrate no gross abnormality. ??Bone windows demonstrate subcentimeter sclerotic lesion within T7, likely bone island. IMPRESSION: ?? 1. ?? Scattered biapical pulmonary nodules, measuring up to 6 mm, adjacent to presumed pleuroparenchymal scarring. 2. ?? Mild emphysema. Lung-RADS v1.1 category ??3: Probably benign. Recommendation: ??Follow up low-dose chest CT in 6 months. THIS IS AN ELECTRONICALLY VERIFIED FINAL REPORT 11/03/2021 11:01 AM - Electronically signed by ??Noé Andino M.D. AG: SHAVONNE D: ??11/03/2021 11:01 AM T: ??11/03/2021 11:01 AM Report ID: [id number] Reading Location: ??[id number] Procedure Note Noé Andino MD - 11/03/2021 EXAM DESCRIPTION: CT LUNG CANCER SCREENING REASON FOR STUDY: Screening CT of the chest in a former smoker with a25 pack year smoking history. Additional history: None. TECHNIQUE: Low dose CT scan of the chest was performed without intravenous contrast using helical scanning technique. The exam extends from the lung apices through the lung bases. Automatic exposure control was used as adose optimization technique. NOTE: This study was performed for the specific purposes of lung cancer screening and is not an alternative to diagnostic chest CT. RADIATION DOSE: CT dose index volume (CTDIvol) = 1.60 mGy COMPARISON: None FINDINGS: SMOKING RELATED LUNG DISEASE: Inferior lung bases are excluded from fieldof view. Mild upper lobe predominant centrilobular and paraseptalemphysema. Mild biapical pleuroparenchymal consolidations, likely scarring. LUNG NODULES: There is scattered nodules within the apices adjacent tothe presumed scarring which may represent scarring as well. For reference sami 4 mm right apical nodule (37) 5 mm right apical nodule (35). 6 mm leftapical nodule (44). 3 mm right apical nodule (48). 3 mm posterior right lowerlobe nodule (115). OTHER: No pleural effusion or pneumothorax. No mediastinal or hilar lymphadenopathy. Heart is normal in size with coronary atherosclerosis. Prominence of the aortic root obscured by motion. The aorta is otherwise normal in caliber. No axillary lymphadenopathy or chest wall mass isseen. Images of the upper abdomen demonstrate no gross abnormality. Bonewindows demonstrate subcentimeter sclerotic lesion within T7, likely bone island. IMPRESSION: 1. Scattered biapical pulmonary nodules, measuring up to 6 mm, adjacentto presumed pleuroparenchymal scarring. 2. Mild emphysema. Lung-RADS v1.1 category 3: Probably benign. Recommendation: Follow up low-dose chest CT in 6 months. THIS IS AN ELECTRONICALLY VERIFIED FINAL REPORT 11/03/2021 11:01 AM - Electronically signed by Noé Andino M.D. AG: SHAVONNE Report ID: [id number] Reading Location: [id number] Prince Bello MD IMG CT PROCEDURES Final R esult documented in this encounter Visit Diagnoses Diagnosis Cigarette nicotine dependence in remission documented in this encounter Care Teams Military Personnel Specialist Relationship Specialty Start Date End Date Prince Bello MD [address] [place] [address] PCP - General 07/18/16 documented as of this encounter
--- OUTSIDE RECORDS SUMMARY | 2024-04-16 14:12 | XMS_ITS | Encounter Summary ---
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
--- OUTSIDE RECORDS SUMMARY | 2024-04-16 14:12 | XMS_ITS | Encounter Summary ---
Author Organization [facility] Address [address] [place] [address] Care Team Providers Care Mix Crusher Operator Name Role Phone Prince Bello MD Primary Care Provider +1 [phone] Reason for Visit * Reason Onset Date Comments Referral Request 03/12/2022 Encounter Details Date Type Department Care Team (Late st Contact Info) Description 03/12/2022 Telephone [facility] [address] [place] [address] Prince Bello MD [address] [place] [address] Referral Request Social History Tobacco Use Types Packs/Day [...] on file 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 Andino at fax number provided GE REPAIR CREW PERSON * Telephone Encounter - Sonia Vasquez - 03/12/2022 3:43 PM CST Medical Question/Miscellaneous Caller???s Concern: They received an order for the patient to have a screening colonoscopy. They need a demographic sheet, copy of insurance cards and recent office notes fax to [phone]. He is anew patient for them. Caller???s Call back #: [phone] option 4 Does message need to be routed?Yes-Action Needed GE REPAIR CREW PERSON documented in this encounter Plan of Treatment Not on file documented as of this encounter Visit Diagnoses Not on filedocumented in this encounter Care Teams Mix Crusher Operator Relationship Specialty Start Date End [place] [address] PCP - General 07/18/16 documented as of this encounter
--- OUTSIDE RECORDS SUMMARY | 2024-04-16 14:12 | XMS_ITS | Encounter Summary ---
Author Organization [facility] Address [address] [facility] [address] [place] [id number] Care Team Providers Care Medical Coding Instructor Name Role Phone Prince Bello MD Primary Care Provider +1 [phone] Reason for Visit * Reason Comments GERD Pt is c/o heartburn. He has been having trouble swallowing food. He starts to choke at times. Encounter Details Date Type Department Care Team (Late st Contact Info) Description 08/23/2021 11:15 AM CDT Office Visit 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 Gender Identity Not on file Sexual Orientation Not on file documented as of this encounter Last Filed Vital Signs Vital Sign Reading Time Taken Comments Blood Pressure 136/74 08/23/2021 11:37 AM CDT Pulse 72 08/23/2021 11:37 AM CDT Temperature 36.8 ??C (98.2 ??F) 08/23/2021 11:37 AM C DT Respiratory Rate - - Oxygen Saturation 98% 08/23/2021 11:37 AM CDT Inhaled Oxygen Concentration - - Weight 85.8 kg (189 lb 3.2 oz) 08/23/2021 11:37 AM CDT Height 177.8 cm (5' 10 ) 08/23/2021 11:37 AM CDT Body Mass Index 27.15 08/23/2021 11:37 AM CDT documented in this encounter Ordered Prescriptions Prescription Sig Dispense Quantity Refills Last Filled Start Date End Date pantoprazole DR (PROTONIX) 40 mg EC tablet Take 1 tablet (40 mg total) by mouth daily 30 tablet 5 08/23/2021 10/28/2022 documented in this encounter Progress Notes * Prince Bello MD - 08/23/2021 11:15 AM CDT Images from the original note were not included. [facility] Froy Queen Chief Complaint. Chief Complaint Patient presents with ??? GERD Pt is c/o heartburn. He has been having trouble swallowing food. He starts to choke at times. HPI. Patient is a 51 y.o. male GERD He complains of choking, dysphagia, globus sensation and heartburn. He reports no abdominal pain, no chest pain, no early satiety, no nausea, no water brash or no wheezing. nocturnal symptoms greatest. no blood in the stools, no black/tarry stools. No change in urination. Takes prn oTC tums/tagamet. This is a recurrent problem. The current episode started more than 1 month ago. The problem occurs frequently. The problem has been gradually worsening. The heartburn is located in the substernum. The heartburn wakes him from sleep. The heartburn does not limit his activity. The symptoms are aggravated by lying down and certain foods. Pertinent negatives include no anemia, fatigue, melena or orthopnea. He has tried a histamine-2 antagonist and an antacid for the symptoms. The treatment provided mild relief. Past Medical History: Diagnosis Date ??? History of multiple allergies Allergies ??? HX OTHER MEDICAL spontaneous R pneumothorax; Comments: DRS 05/09/2014 - ??? Hyperlipidemia Hyperlipidemia Past Surgical History: Procedure Laterality Date ??? BACK SURGERY Back surgery ??? LASIK LASIK ??? OTHER SURGICAL HISTORY 2013 spontaneous R pneumothorax: R lung chest tube HOME MEDICATIONS : ibuprofen (ADVIL,MOTRIN) 600 mg tablet cetirizine (ZyrTEC) 5 mg tablet fluticasone propionate (FLONASE) 50 mcg/actuation nasal spray folic acid (FOLVITE) [address] (PROTONIX) 40 mg EC tablet tiZANidine (ZANAFLEX) 2 mg tablet No Known Allergies Social History Tobacco Use ??? Smoking status: Former Smoker ??? Smokeless tobacco: Current User Types: Chew ??? Tobacco comment: Smoking History Packs/day: 1 Packs Substance Use Topics ??? Alcohol use: Yes Comment: Occassional Family History Problem Relation Age of Onset ??? Other Father 4-v CABG; ??? Coronary artery disease Father Coronary artery disease; ??? Hyperlipidemia Father Hyperlipidemia; ??? Other Mother Alive and well; ??? Esophageal cancer Father esophageal cancer; Review of Systems: Review of Systems Constitutional: Negative for activity change, fatigue and fever. HENT: Negative for postnasal drip and rhinorrhea. Respiratory: Positive for choking. Negative for chest tightness, shortness of breath and wheezing. Cardiovascular: Negative for chest pain and leg swelling. Gastrointestinal: Positive for dysphagia and heartburn. Negative for abdominal pain, blood in stool, constipation, diarrhea, melena, nausea and vomiting. Genitourinary: Negative for dysuria, hematuria and urgency. Musculoskeletal: Positive for arthralgias. Negative for back pain, myalgias and neck pain. Neurological: Negative for dizziness, tremors, weakness, light-headedness and headaches. Hematological: Negative for adenopathy. Psychiatric/Behavioral: Negative for sleep disturbance and suicidal ideas. BP 136/74 (BP Location: Left arm, Patient Position: Sitting) Pulse 72 Temp 36.8 ??C (98.2 ??F) (Oral) Ht 177.8 cm (5' 10 ) Wt 85.8 kg (189 lb 3.2 oz) SpO2 98% BMI 27.15 kg/m?? Physical Exam: Physical Exam Vitals reviewed. [...] edema. Lymphadenopathy: Cervical: No cervical adenopathy. Skin: Findings: No erythema. Neurological: Mental Status: He is alert and oriented to person, place, and time. Psychiatric: Thought Content: Thought content normal. Assessment & Plan: Diagnoses and all orders for this visit: Lipid screening (Primary) - Lipid panel; Future - Comprehensive metabolic panel; Future - CBC with auto differential; Future Screening for lung cancer - CT Lung Cancer Screening; Future ONgnig chewless tobacco and would be eligible for screening given prior hx of tobacco with smoking until quitting 7 years ago. Colon cancer screening - Ambulatory referral to Gastroenterology; Future Dysphagia, unspecified type Reviewed differential and definitibly feels warrants EGD evaluaton. Labowkr as above. Dialy PPI andwill montior repsonse. Other orders - pantoprazole DR (PROTONIX) 40 mg EC tablet; Take 1 tablet (40 mg total) by mouth daily BMI Follow-up includes: nutrition counseling. Body mass index is 27.15 kg/m??. Prince Bello MD documented in this encounter Plan of Treatment Not on file documented as of this encounter Results * (ABNORMAL) CBC with auto differential (08/23/2021 12:07 PM CDT) WBC 6.0 3.8 - 9.9 K/cumm [facility] Hgb 13.7 13.0 - 17.5 g/dL [facility] Hct 42.1 38.9 - 50.3 % [facility] Plt 419(H) 150 - 400 K/cumm [facility] MPV 10.2 9.1 - 12.3 fL [facility] RBC 4.33 4.30 - 5.80 M/cumm [facility] MCV 97.2(H) 81.3 - 96.4 fL [facility] MCH 31.6 27.1 - 33.3 pg [facility] MCHC 32.5 32.3 - 35.7 g/dL [facility] RDW CV 12.1 11.1 - 14.9 % [facility] RDW SD 43.4 35.7 - 48.1 fL [facility] NRBC abs 0.00 0.00 - 0.01 K/cumm [facility] Blood 08/23/2021 12:0 7 PM CDT 08/23/2021 9:26 PM CDT us Prince Bello MD LAB BLOOD ORDERABLES Chanell l Result [facility] [address] Department [place] [address] * Comprehensive metabolic panel (08/23/2021 12:07 PM CDT) Sodium 141 135 - 145 mmol/L [facility] Potassium, pl 4.3 3.3 - 4.9 mmol/L [facility] Chloride 105 97 - 110 mmol/L [facility] CO2 23 22 - 32 mmol/L [facility] Anion gap 13 2 - 15 mmol/L [facility] BUN 16 8 - 25 mg/dL [facility] Creatinine 0.92 0.80 - 1.30 mg/dL [facility] Glucose 86 70 - 199 mg/dL [facility] Comment: Interpretive Data Fasting glucose >/= 126 [...] classification and Diagnosis of Diabetes Diabetes Care 2017;40 (Suppl. 1):S11. Current interpretive data was last revised 2017. Calcium 10.1 8.5 - 10.3 mg/dL [facility] Bilirubin, total 0.5 0.1 - 1.2 mg/dL [facility] Protein, pl 7.9 6.5 - 8.5 g/dL [facility] Albumin 5.0 3.5 - 5.0 g/dL [facility] Alk phos 45 40 - 130 Units/L [facility] ALT 21 7 - 55 Units/L [facility] AST 31 10 - 50 Units/L [facility] Blood 08/23/2021 12:0 7 PM CDT 08/23/2021 9:26 PM CDT us Prince Bello MD LAB BLOOD ORDERABLES [place] [address] [address] Department [place] [address] * (ABNORMAL) Lipid panel (08/23/2021 12:07 PM CDT) Cholesterol 238(H) 30 - 199 mg/dL [facility] Comment: Interpretive Data Ages < or = [...] Data was last revised on 2017. Triglycerides 224(H) <=149 mg/dL [facility] Comment: Interpretive Data Ages < or = [...] Data was last revised on 2017. HDL 51 >=40 mg/dL [facility] Comment: Interpretive Data [...] was last revised on 2017. LDL, calculated 142(H) <=129 mg/dL [facility] Comment: Interpretive Data [...] was last revised on 2017. Non-HDL Cholesterol 187 mg/dL [facility] Comment: Interpretive Data Ages < [...] was last revised on 2017. Chol/HDL ratio 5 [facility] Blood 08/23/2021 12:0 7 PM CDT 08/23/2021 9:26 PM CDT Prince Bello MD LAB BLOOD ORDERABLES Chanell bermudez Result [facility] [address] Department [place] [address] documented in this encounter Visit Diagnoses Diagnosis Lipid screening- Primary Screening for lipoid disorders Screening for lung cancer Colon cancer screening Special screening for malignant neoplasms, colon Dysphagia, unspecified type Nicotine dependence, cigarettes, uncomplicated documented in this encounter Discontinued Medications Medication Sig Discontinue Reason Start Date End Da te tiZANidine (ZANAFLEX) 2 mg tablet Take 1 tablet (2 mg total) by mouth every 6 (six) hours as needed for muscle spasms Therapy completed 11/07/2020 08/23/2021 documented as of this encounter Care Teams Medical Coding Instructor Relationship Specialty Start Date End [place] [address] PCP - General 07/18/16 documented as of this encounter
--- OUTSIDE RECORDS SUMMARY | 2024-04-16 14:12 | XMS_ITS | Encounter Summary ---
Author Organization [facility] Address [address] [place] [address] Care Team Providers Care Machine Design Engineer Name Role Phone Prince Bello MD Primary Care Provider [phone] [phone] Encounter Details Date Type Department Care Team (Late st Contact Info) Description 11/13/2022 Telephone [facility] [address] [place] [address] Prince Bello MD [address] [place] [address] Social History Tobacco Use Types Packs/Day Years Used Date Smoking Tobacco: Former Cigarettes 1 8 2014 Smokeless Tobacco: Current Chew Comments:Smoking History [...] on file 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 I am on his hippa form. I???m very concerned about the amount of choking He does from very basic foods like bread he chokes excessively regularly weekly. His dad had stage four esophageal cancer and survived but I know that that can be familial and I???m very concerned about his choking. hopefully he just needs dilated but he???s been trying to get an EGD and colonoscopy for a long time now to no avail. I spoke to Dr. Andino today and he said if a referral could get to his office he could get him in quickly. I work multiple times a week Please see pended referral and sign If you approve thanks documented in this encounter Plan of Treatment Not on file documented as of this encounter Visit Diagnoses Diagnosis Dysphagia, unspecified type- Primary documented in this encounter Care Teams Machine Design Engineer Relationship Specialty Start Date End Date [place] [address] PCP - General 07/18/16 documented as of this encounter
--- OUTSIDE RECORDS SUMMARY | 2024-04-16 14:12 | XMS_ITS | Encounter Summary ---
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 * Telephone Encounter - Sunshine Boucher MA - 11/13/2022 2:48 PM CDT ----- Message from Prince Bello MD sent at 11/13/2022 2:11 PM CDT ----- Mr. Queen, Thanks for completing the labwork. YOur results show no evidence of infection and normal kidney andliver function. No anemia. The elevated platelet count is nonspecific for any inflammation. Normal thyroid function. Normal blood sugar, no diabetes. Wuold continue to watch LDL (bad cholesterdol) while your good cholesterol remains excellent. documented in this encounter Plan of Treatment Not on file documented as of this encounter Visit Diagnoses Not on filedocumented in this encounter Care Teams E D Tech Relationship Specialty Start Date [place] [address] PCP - General 07/18/16 documented as of this encounter
--- OUTSIDE RECORDS SUMMARY | 2024-04-16 14:12 | XMS_ITS | Encounter Summary ---
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 Gender Identity Not on file Sexual Orientation Not on file documented as of this encounter Plan of Treatment Not on file documented as of this encounter Procedures Procedure Name Priority Date/Time Associated Diagnosis Comments GI DIRECT ACCESS CASE REQUEST Routine 12/11/2022 12:42 PM CDT documented in this encounter Results * Direct Scheduling Case Request (12/11/2022 12:42 PM CDT) us Historical Provider SURGICAL CASE ORDERS Chanell l Result documented in this encounter Visit Diagnoses Not on filedocumented in this encounter Care Teams Box Annealer Relationship Specialty Start Date [place] [address] PCP - General 07/18/16 documented as of this encounter
--- OUTSIDE RECORDS SUMMARY | 2024-04-16 14:12 | XMS_ITS | Encounter Summary ---
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
--- OUTSIDE RECORDS SUMMARY | 2024-04-16 14:12 | XMS_ITS | Encounter Summary ---
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 Gender Identity Not on file Sexual Orientation Not on file documented as of this encounter Plan of Treatment Not on file documented as of this encounter Procedures Procedure Name Priority Date/Time Associated Diagnosis Comments EGFR Routine 08/23/2021 12:07 PM CDT Lipid screening DIFFERENTIAL AUTO Routine 08/23/2021 12: 07 PM CDT Lipid screening CBC WITH AUTO DIFFERENTIAL Routine 08/23/2021 12:07 PM CDT Lipid screening LIPID PANEL Routine 08/23/2021 12:07 PM CDT Lipid screening COMPREHENSIVE METABOLIC PANEL Routine 08/23/2021 12:07 PM CDT Lipid screening documented in this encounter Results * eGFR (08/23/2021 12:07 PM CDT) [facility] eGFR 101 mL/min/1. 73 m2 [facility] Comment: Interpretive [...] of Race in Diagnosing Kidney Disease, JASN 202). The CKD-EPI equation should not be used for patients with unstable renal function and has not been validated in children and those over 70. Current interpretive data was last reviewed 2021. Blood 08/23/2021 12:0 7 PM CDT 08/23/2021 9:40 PM CDT us Prince Bello MD LAB BLOOD ORDERABLES Chanell bermudez Result [facility] [address] Department [place] [address] * Differential, auto (08/23/2021 12:07 PM CDT) Neutrophil abs 3.4 1.7 - 6.5 K/cumm [facility] Imm gran abs 0.0 0.0 - 0.1 K/cumm [facility] Lymphocyte abs 1.9 0.8 - 3.3 K/cumm [facility] Monocyte abs 0.5 0.2 - 0.8 K/cumm [facility] Eosinophil abs 0.1 0.0 - 0.5 K/cumm [facility] Basophil abs 0.1 0.0 - 0.1 K/cumm [facility] Neutrophil pct 56.5 % [facility] Comment: Interpretive Data Percent cell count reference ranges are not reported, since discordance with absolute values may lead to misinterpretation of CBC data. Current Interpretive Data was last revised on 2017. Imm gran pct 0.3 % [facility] Comment: Interpretive Data Percent cell count reference ranges are not reported, since discordance with absolute values may lead to misinterpretation of CBC data. Current Interpretive Data was last revised on 2017. Lymphocyte pct 32.3 % [facility] Comment: Interpretive Data Percent cell count reference ranges are not reported, since discordance with absolute values may lead to misinterpretation of CBC data. Current Interpretive Data was last revised on 2017. Monocyte pct 8.7 % [facility] Comment: Interpretive Data Percent cell count reference ranges are not reported, since discordance with absolute values may lead to misinterpretation of CBC data. Current Interpretive Data was last revised on 2017. Eosinophil pct 1.0 % [facility] Comment: Interpretive Data Percent cell count reference ranges are not reported, since discordance with absolute values may lead to misinterpretation of CBC data. Current Interpretive Data was last revised on 2017. Basophil pct 1.2 % [facility] Comment: Interpretive Data Percent cell count reference ranges are not reported, since discordance with absolute values may lead to misinterpretation of CBC data. Current Interpretive Data was last revised on 2017. Blood 08/23/2021 12:0 7 PM CDT 08/23/2021 9:26 PM CDT Prince Bello MD LAB BLOOD ORDERABLES Chanlel aidan Result [facility] [address] Department [place] [address] * (ABNORMAL) Lipid panel (08/23/2021 12:07 PM CDT) [facility] Cholesterol 238(H) 30 - 199 mg/dL [facility] Comment: [...] revised on 2017. Triglycerides 224(H) <=149 mg/dL [facility] Comment: Interpretive Data Ages < or = [...] on 2017. Non-HDL Cholesterol 187 mg/dL [facility] Comment: Interpretive Data Ages [...] last revised on 2017. Chol/HDL ratio 5 [facility] Blood 08/23/2021 12:0 7 PM CDT 08/23/2021 9:26 PM CDT us Prince Bello MD LAB BLOOD ORDERABLES Cahnell aidan Result [facility] [address] Department [place] [address] * Comprehensive metabolic panel (08/23/2021 12:07 PM CDT) Sodium 141 135 - 145 mmol/L [facility] Potassium, pl 4.3 3.3 - 4.9 mmol/L [facility] Chloride 105 97 - 110 mmol/L [facility] CO2 23 22 - 32 mmol/L [facility] Anion gap 13 2 - 15 mmol/L [facility] BUN 16 8 - 25 mg/dL [facility] Creatinine 0.92 0.80 - 1.30 mg/dL [facility] Glucose 86 70 - 199 mg/dL [facility] Comment: [...] BLOOD ORDERABLES Chanell l Result [facility] [address] Department [place] [address] * (ABNORMAL) CBC with auto differential (08/23/2021 12:07 PM CDT) Pathologist [facility] WBC 6.0 3.8 - 9.9 K/cumm [facility] Hgb 13.7 13.0 - 17.5 g/dL [facility] Hct 42.1 38.9 - 50.3 % [facility] Plt 419(H) 150 - 400 K/cumm [facility] MPV 10.2 9.1 - 12.3 fL [facility] RBC 4.33 4.30 - 5.80 M/cumm [facility] MCV 97.2(H) 81.3 - 96.4 fL [facility] MCH 31.6 27.1 - 33.3 pg [facility] MCHC 32.5 32.3 - 35.7 g/dL [facility] RDW CV 12.1 11.1 - 14.9 % [facility] RDW SD 43.4 35.7 - 48.1 fL [facility] NRBC abs 0.00 0.00 - 0.01 K/cumm [facility] Blood 08/23/2021 12:0 7 PM CDT 08/23/2021 9:26 PM CDT Prince Bello MD LAB BLOOD ORDERABLES Chanell l Result [facility] [address] Department of [place] [address] [place] [address] documented in this encounter Visit Diagnoses Diagnosis Lipid screening Screening for lipoid disorders documented in this encounter Care Teams Commercial Census Taker Relationship Specialty Start Date End Date Prince Bello MD [address] [place] [address] PCP - General 07/18/16 documented as of this encounter
--- OUTSIDE RECORDS SUMMARY | 2024-04-16 14:12 | XMS_ITS | Encounter Summary ---
Author Organization [facility] Healthcare Address [address] [place] [address] Care Team Providers Care Machine Cutter Name Role Phone Prince Bello MD Primary Care Provider +1 [phone] Reason for Referral * MRI/CAT/PET Scan (Routine) - Closed Specialty Diagnoses / Procedures Referred By Contac t Referred To Contact Radiology Diagnoses Personal history of nicotine dependence Procedures CT Lung Cancer Screening Prince Bello MD [address] [place] [address] Phone: tel: fax: [address] [address] Referral ID Status Reason Start Date Expiration Date Visits Re quested Visits Authorized [id number] Closed 02/10/2023 03/11/2024 1 1 Reason for Visit * Reason Comments Follow-up Pt is here for a 3 m o check up. 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 Gender Identity Not on file Sexual Orientation Not on file documented as of this encounter Last Filed Vital Signs Vital Sign Reading Time Taken Comments Blood Pressure 154/92 02/10/2023 8:18 AM CDT Pulse 85 02/10/2023 8:18 AM CDT Temperature 36.8 ??C (98.3 ??F) 02/10/2023 8:18 AM CD T Respiratory Rate - - Oxygen Saturation 98% 02/10/2023 8:18 AM CDT Inhaled Oxygen Concentration - - Weight 87.4 kg (192 lb 11.2 oz) 02/10/2023 8:18 AM CDT Height 177.8 cm (5' 10 ) 02/10/2023 8:18 AM CDT Body Mass Index 27.65 02/10/2023 8:18 AM CDT documented in this encounter Ordered Prescriptions Prescription Sig Dispense Quantity Refills Last Filled Start Date End Date losartan (COZAAR) 50 mg tablet Take 1 tablet (50 mg total) by mouth daily 30 tablet 11 02/10/2023 citalopram (CeleXA) 10 mg tablet Take 1 tablet (10 mg total) by mouth daily 30 tablet 3 02/10/2023 ibuprofen (ADVIL,MOTRIN) 600 mg tablet Take 1 tablet (600 mg total) by mouth every 8 (eight) hours as needed for pain (Take wtih food.) 90 tablet 3 02/10/2023 03/16/2024 documented in this encounter Progress Notes * Prince Bello MD - 02/10/2023 8:30 AM CDT Images from the original note were not included. [facility] Salvatore Queen Chief Complaint. Chief Complaint Patient presents with Follow-up Pt is here for a 3 mo check up. HPI. Patient is a 52 y.o. male Mr. Queen presents to clinic for 3 month f/u on hypertnesion and depression. NOted fatigue after 3weeks of citalopram so stopped but is amenable to another trial of medicaiton and aware of time to onset of effectvieness. Hypertension This is a new problem. The current episode started today. The problem has been waxing and waning since onset. The problem is uncontrolled. Associated symptoms include anxiety. Pertinent negatives include no chest pain, headaches, malaise/fatigue, neck pain, orthopnea, palpitations, peripheral edemaor shortness of breath. Risk factors for coronary artery disease include male gender, family history, stress and sedentary lifestyle. The current treatment provides moderate improvement. There are nocompliance problems. There is no history of kidney disease, CAD/[place], CVA or heart failure. There is no history of chronic renal disease. Past Medical History: Diagnosis Date History of multiple allergies Allergies HX OTHER MEDICAL spontaneous R pneumothorax; Comments: MARIANA 05/09/2014 - Hyperlipidemia Hyperlipidemia Past Surgical History: Procedure Laterality Date BACK SURGERY Back surgery RIKI LYN OTHER SURGICAL HISTORY 2013 spontaneous R pneumothorax: R lung chest tube HOME MEDICATIONS : citalopram (CeleXA) 10 mg tablet citalopram (CeleXA) 10 mg tablet ibuprofen (ADVIL,MOTRIN) 600 mg tablet losartan (COZAAR) 50 mg tablet ibuprofen (ADVIL,MOTRIN) 600 mg tablet No Known Allergies Social History Tobacco Use Smoking status: Former Packs/day: 1.00 Years: 27.00 Additional pack years: 0.00 Total pack years: 27.00 Types: Cigarettes Start date: 1987 Quit date: 2014 Years since quittin.8 Smokeless tobacco: Current Types: Chew Tobacco comments: [...] of Systems Constitutional: Negative for activity change, fatigue, fever and malaise/fatigue. HENT: Negative for postnasal drip and rhinorrhea. Respiratory: Negative for chest tightness, shortness of breath and wheezing. Cardiovascular: Negative for chest pain, palpitations, orthopnea and leg swelling. Gastrointestinal: Negative for abdominal pain, blood in stool, constipation, diarrhea, nausea and vomiting. Genitourinary: Negative for dysuria, hematuria and urgency. Musculoskeletal: Positive for arthralgias. Negative for back pain, myalgias and neck pain. Skin: Negative for rash. Follows with dermatology for b9 skin lesion on biopsy Neurological: Negative for dizziness, tremors, weakness, light-headedness and headaches. Hematological: Negative for adenopathy. Psychiatric/Behavioral: Negative for sleep disturbance and suicidal ideas. BP 154/92 (BP Location: Right arm, Patient Position: Sitting) Pulse 85 Temp 36.8 ??C (98.3 ??F)(Oral) Ht 177.8 cm (5' 10 ) Wt 87.4 kg (192 lb 11.2 oz) SpO2 98% BMI 27.65 kg/m?? Physical Exam: Physical Exam Vitals reviewed. [...] sounds are normal. Palpations: Abdomen is soft. Tenderness: There is no right CVA tenderness or left CVA tenderness. Musculoskeletal: Cervical back: Neck supple. Right lower leg: No edema. Left lower leg: No edema. Lymphadenopathy: Cervical: No cervical adenopathy. Skin: Capillary Refill: Capillary refill takes less than 2 seconds. Findings: No erythema or rash. Neurological: Mental Status: He is alert and oriented to person, place, and time. Psychiatric: Attention and Perception: Attention normal. Mood and Affect: Mood is depressed. Speech: Speech normal. Behavior: Behavior normal. Behavior is cooperative. Thought Content: Thought content normal. Thought content does not include homicidal or suicidal ideation. Thought content does not include homicidal or suicidal plan. Cognition and Memory: Cognition normal. Judgment: Judgment normal. Comments: Good inisght, well-grromed, normal speech pattern. Assessment & Plan: Diagnoses and all orders for this visit: Lipid screening (Primary) - Lipid panel; Future - Comprehensive metabolic panel; Future - CBC with auto differential; Future Labowkr UTD. Moderate episode of recurrent major depressive disorder (HCC) See discussion as above. WIll give another trial of citlaopram and reveiwed time to onset of full effectiveness and will montior response. Hypertension, essential Initiate therapy with losartan 50mg every day. Reeiwed goal BP of 140/90 or lower. Reveiwed overview of mechanism of action. WIll montior response. Reviewed [place] for blood pressure checks at office. Other orders - citalopram (CeleXA) 10 mg tablet; Take 1 tablet (10 mg total) by mouth daily - ibuprofen (ADVIL,MOTRIN) 600 mg tablet; Take 1 tablet (600 mg total) by mouth every 8 (eight) hours as needed for pain (Take wtih food.) - losartan (COZAAR) 50 mg tablet; Take 1 tablet (50 mg total) by mouth daily BMI Follow-up includes: nutrition counseling and exercise counseling. Body mass index is 27.65 kg/m??. Prince Bello MD documented in this encounter Miscellaneous Notes * Addendum Note - Taniya Cintron - 02/10/2023 8:30 AM CDTAddended by: TANIYA CINTRON on: 07/15/2023 08:50 AM Modules accepted: Orders documented in this encounter Plan of Treatment Scheduled Orders Name Type Priority Associated Diagnoses Orde r Schedule CT Lung Cancer Screening Imaging Schedule Routine, Read Routine (OP Routine) Personal history of nicotine dependence Expected: 05/13/2023, Expires: 04/12/2024 documented as of this encounter Results * (ABNORMAL) Lipid panel (07/15/2023 8:51 AM [...] last revised on 2017. Testing performed by: [facility], [address] [place] [address]., [id number] Triglycerides 187(H) <=149 mg/dL [facility] (JESSI) Comment: Interpretive Data [...] last revised on 2017. Testing performed by: [facility], [address] [place] [address]., [address] HDL 56 >=40 mg/dL [facility] ([facility]I) [...] last revised on 2017. Testing performed by: [facility], [address] [place] [address]., [address] LDL, calculated 142(H) <=129 mg/dL [facility] (JESSI) Comment: Interpretive Data Ages < or [...] last revised on 2017. Testing performed by: [facility], [address] [place] [address], [place]., [address] Non-HDL Cholesterol 179 mg/dL [facility] ([facility]ESSI) Comment: Interpretive Data [...] last revised on 2017. Testing performed by: [address] [address] Chol/HDL ratio 4 [facility] (JESSI) Comment:Testing performed by : [address], [address] Blood 07/15/2023 8:51 AM CDT 07/15/2023 12:12 PM CDT us Prince Bello MD LAB BLOOD ORDERABLES Chanell bermudez Result [facility] (JESSI) 1 [facility] Department [place] [address] * Comprehensive metabolic panel (07/15/2023 8:51 AM CDT) Sodium 142 135 - 145 mmol/L Comment:Testing performed by : [address] [address] Potassium, pl 4.1 3.3 - 4.9 mmol/L [facility] ([facility]) Comment:Testing performed by : [facility], [address] [place] [address]., [address] Chloride 105 97 - 110 mmol/L [facility] ([facility]) Comment:Testing performed by : [address] [address] CO2 25 22 - 32 mmol/L [facility] ([facility]) Comment:Testing performed by : [address] [address] Anion gap 12 2 - 15 mmol/L [facility] ([facility]) Comment:Testing performed by : [address], [address] BUN 13 6 - 25 mg/dL [facility] ([facility]) Comment:Testing performed by : [address], [address] Creatinine 1.03 0.80 - 1.30 mg/dL [facility] ([facility]) Comment:Testing performed by : [address] [address] Glucose 103 70 - 199 mg/dL [facility] [...] was last revised 2022. Testing performed by: [address] [address] Calcium 9.9 8.5 - 10.3 mg/dL [facility] ([facility]) Comment:Testing performed by : [address] [address] Bilirubin, total 0.7 0.1 - 1.2 mg/dL [facility] ([facility]) Comment:Testing performed by : [address] [address] Protein, pl 8.1 6.5 - 8.5 g/dL [facility] ([facility]) Comment:Testing performed by : [address], [address] Albumin 5.0 3.5 - 5.0 g/dL [facility] ([facility]) Comment:Testing performed by : [address] [address] Alk phos 50 40 - 130 Units/L [facility] ([facility]) Comment:Testing performed by : [address] [address] ALT 15 7 - 55 Units/L [facility] ([facility]) Comment:Testing performed by : [address], [address] AST 24 10 - 50 Units/L [facility] ([facility]) Comment:Testing performed by : [address], [address] Blood 07/15/2023 8:51 AM CDT 07/15/2023 12:12 PM CDT Prince Bello MD LAB BLOOD ORDERABLES Chanell aidan Result [facility] ([facility]) 1 [facility] Department [place] [address] * (ABNORMAL) CBC with auto differential (07/15/2023 8:51 AM CDT) WBC 6.6 3.8 - 9.9 K/cumm Comment:Testing performed by : [address], [address] Hgb 13.4 13.0 - 17.5 g/dL [facility] ([facility]) Comment:Testing performed by : [address], [address] Hct 39.9 38.9 - 50.3 % [facility] ([facility]) Comment:Testing performed by : [address], [address] Plt 421(H) 150 - 400 K/cumm [facility] ([facility]) Comment:Testing performed by : [address], [address] MPV 9.9 9.1 - 12.3 fL [facility] ([facility]) Comment:Testing performed by : [address], [address] RBC 4.25(L) 4.30 - 5.80 M/cumm [facility] ([facility]) Comment:Testing performed by : [address], [address] MCV 93.9 81.3 - 96.4 fL [facility] ([facility]) Comment:Testing performed by : [address], [address] MCH 31.5 27.1 - 33.3 pg [facility] ([facility]) Comment:Testing performed by : [address], [address] MCHC 33.6 32.3 - 35.7 g/dL [facility] (JESSI) Comment:Testing performed by : [facility], [address] [place] [address], [address] RDW CV 12.2 11.1 - 14.9 % [facility] (JESSI) Comment:Testing performed by : [facility], [address] [place] [address], [address] RDW SD 42.4 35.7 - 48.1 fL [facility] (JESSI) Comment:Testing performed by : [facility], [address] [place] [address], [address] NRBC abs 0.00 0.00 - 0.01 K/cumm [facility] (JESSI) Comment:Testing performed by : [facility], [address] [place] [address], [address] Blood 07/15/2023 8:51 AM CDT 07/15/2023 12:12 PM CDT Prince Bello MD LAB BLOOD ORDERABLES Chanell l Result [facility] ([place]) 1 [facility] Department [place] [address] documented in this encounter Visit Diagnoses Diagnosis Lipid screening- Primary Screening for lipoid disorders Moderate episode of recurrent major depressive disorder (HCC) Hypertension, essential Unspecified essential hypertension documented in this encounter Discontinued Medications Medication Sig Discontinue Reason Start Date End Da te ibuprofen (ADVIL,MOTRIN) 600 mg tablet Take 1 tablet (600 mg total) by mouth every 8 (eight) hours as needed for pain Therapy completed 10/28/2022 02/10/2023 citalopram (CeleXA) 10 mg tablet Take 1 tablet (10 mg total) by mouth daily Reorder 10/28/2022 02/10/2023 documented as of this encounter Care Teams Machine Cutter Relationship Specialty Start Date End Date Prince Bello MD [address] [place] [address] PCP - General 07/18/16 documented as of this encounter
--- OUTSIDE RECORDS SUMMARY | 2024-04-16 14:12 | XMS_ITS | Encounter Summary ---
Author Organization [facility] Medical Group Address [address] [place] [address] Care Team Providers Care [employer] Worker Name Role Phone Prince Bello MD Primary Care Provider [phone] [phone] Reason for Visit * Reason Onset Date Comments Additional Services Or Orders 04/04/2021 Encounter Details Date Type Department Care Team (Late st Contact Info) Description 04/04/2021 Telephone [facility] [address] [address] Prince Bello MD [address] [place] [address] Additional Services Or Orders Social History Tobacco Use Types Packs/Day Years [...] on file 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 SURVEYOR * Telephone Encounter - Prince Bello MD - 04/08/2021 8:05 AM LAND SURVEYOR Anette please review with [facility] SURVEYOR * Telephone Encounter - Sharon Cohen MA - 04/05/2021 5:47 PM LAND SURVEYOR Camelia from [facility] called requesting pt's MRI orders be placed differently. She states the orders should be placed as follows: MRA Head without (order number [id number]) MRA Carotid with (order number [id number]) SURVEYOR * Telephone Encounter - Ashley Zamora - 04/04/2021 2:36 PM CST Patient called and is wondering if the MRI brain W WO Contrast and MRA Head and Carotids W wO Contrast be sent to [facility] Patient can be reached at [phone] SURVEYOR documented in this encounter Plan of Treatment Not on file documented as of this encounter Visit Diagnoses Not on filedocumented in this encounter Care Teams [employer] Worker Relationship Specialty Start Date End [place] [address] PCP - General 07/18/16 documented as of this encounter
--- OUTSIDE RECORDS SUMMARY | 2024-04-16 14:13 | XMS_ITS | Encounter Summary ---
Author Organization [facility] Address [address] [facility] [address] [place] [address] Care Team Providers Care Occ Therapy Asst Name Role Phone Prince Bello MD Primary Care Provider +1 [phone] Encounter Details Date Type Department Care Team (Late st Contact Info) Description 06/29/2020 Telephone [facility] [address] [place] [address] Prince Bello MD [address] [place] [address] Social History Tobacco Use Types Packs/Day Years Used Date Smoking Tobacco: Former Smokeless Tobacco: Current Comments:Smoking History Pac ks/day: 1 Packs Alcohol Use Standard Drinks/Week Comments Yes 0 (1 standard drink = 0.6 oz pur e alcohol) Occassional PHQ-2 Answer Date Recorded PHQ-2 Score 0 06/13/2019 Sex and Gender Information Value Date Recorded Sex Assigned at Not on file 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 CTOR ACUTE * Telephone Encounter - Roberto Trejoa - 06/29/2020 10:16 AM CST 06/29/2020 Pt has an appt august 20 and was wanting to get lab completed prior to his appt Can you please order those labs He wants to you [facility]- ([facility]) Pt N [phone] CTOR ACUTE documented in this encounter Plan of Treatment Not on file documented as of this encounter Visit Diagnoses Not on filedocumented in this encounter Care Teams Occ Therapy Asst Relationship Specialty Start Date End Date Prince Bello MD [address] [place] [address] PCP - General 07/18/16 documented as of this encounter
--- OUTSIDE RECORDS SUMMARY | 2024-04-16 14:13 | XMS_ITS | Encounter Summary ---
Author Organization [facility] Care Team Providers Care Level Vial Grinder Name Role Phone Prince Bello MD Primary Care Provider +1 [phone] Encounter Details Date Type Department Care Team (Late st Contact Info) Description 08/16/2013 - 08/16/2013 11:59 PM CDT [facility] Ju[facility] Other pneumothorax; Tobacco use disorder Social History Tobacco Use Types Packs/Day Years Used Date Smoking Tobacco: Former Cigarettes Q uit: 04/20/2012 Comments:Smoking History Pac ks/day: 1 Packs Alcohol Use Standard Drinks/Week Comments Yes 0 (1 standard drink = 0.6 oz pur e alcohol) Sex and Gender Information Value Date Recorded Sex Assigned at Not on file 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 Gender Identity Not on file Sexual Orientation Not on file documented as of this encounter Medications at Time of Discharge ibuprofen (ADVIL,MOTRIN) 600 mg tablet take 1 tablet by oral route up to 3 times every day with food 90 3 04/21/2013 01/20/2018 documented as of this encounter Plan of Treatment Not on file documented as of this encounter Procedures Procedure Name Priority Date/Time Associated Diagnosis Comments XR CHEST PA LATERAL 2 VIEWS Routine 08/16/2013 2:51 PM CDT documented in this encounter Results * XR Chest Pa Lateral 2 Views (08/16/2013 2:51 PM CDT) Anatomical Region Laterality Modality Body, Chest N/A Radiographic Martha ging 08/16/2013 2:51 PM CDT Narrative 08/16/2013 4:31 PM CDT ANNMARIE BLEVINS M.D. ELENA KAUR M.D. FINAL REPORT The radiology attending physician has personally reviewed this study, and has reviewed and/or edited this written report and agrees with it. ACC# ??Date Time ??Exam [id number] Aug 16, 2013 14:51:00 11989 Chest 2 views Frontl & Lat EXAMINATION: ?? Chest 2 views, frontal and lateral ?? IMPRESSION: ?Comparison is made to prior examination dated 08/07/2013 Interval resolution of a small right apical pneumothorax. Mild biapical scarring is unchanged. The lungs are otherwise clear with no pneumonia, pulmonary edema or pleural effusions. Heart size and mediastinal contours are normal. ?? Requested By: AVINASH PEDRAZA ??F.N.P. Dictated By: ?? ELENA KAUR M.D. ??on Aug 16 2013 ??4:06P This document has been electronically signed by: ANNMARIE BLEVINS M.D. on Aug 16 2013 ??4:31P Procedure Note Provider, MD Edilberto - 09/25/2016 ANNMARIE BLEVINS M.D. ELENA KAUR M.D. FINAL REPORT The radiology attending physician has personally reviewed this study, and has reviewed and/or edited this written report and agrees with it. ACC# Date Time Exam [id number] Aug 16, 2013 14:51:00 [id number] Chest 2 views Frontl & Lat EXAMINATION: Chest 2 views, frontal and lateral IMPRESSION: Comparison is made to prior examination dated 08/07/2013 Interval resolution of a small right apical pneumothorax. Mild biapical scarring is unchanged. The lungs are otherwise clear with no pneumonia, pulmonary edema or pleural effusions. Heart size and mediastinal contours are normal. Requested By: AVINASH PEDRAZA F.N.P. Dictated By: ELENA KAUR M.D. on Aug 16 2013 4:06P This document has been electronically signed by: ANNMARIE BLEVINS M.D. on Aug 16 2013 4:31P us Historical Provider IMG XR PROCEDURES Final R esult documented in this encounter Visit Diagnoses Diagnosis Other pneumothorax Tobacco use disorder documented in this encounter Care Teams Level Vial Grinder Relationship Specialty Start Date End Date Prince Bello MD [address] [place] [address] PCP - General 05/28/11 07/17/16 documented as of this encounter
--- OUTSIDE RECORDS SUMMARY | 2024-04-16 14:13 | XMS_ITS | Encounter Summary ---
Author Organization [facility] Medical Group Address [address] [address] Care Team Providers Care Fence Manufacture Supervisor Name Role Phone Prince Bello MD Primary Care Provider [phone] [phone] Encounter Details Date Type Department Care Team (Late st Contact Info) Description 11/19/2020 Orders Only [facility] [place] [address] [place] [address] Prince Bello MD [address] [facility] [place] [address] Social History Tobacco Use Types Packs/Day Years Used Date Smoking Tobacco: Former Smokeless Tobacco: Current Comments:Smoking History Pac ks/day: 1 Packs Alcohol Use Standard Drinks/Week Comments Yes 0 (1 standard drink = 0.6 oz pur e alcohol) Occassional PHQ-2 Answer Date Recorded PHQ-2 Total Score (If total score is 3 or more points, staff should administer the PHQ-9) 0 08/20/2020 Sex and Gender Information Value Date Recorded Sex Assigned at Not on file 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 21 tablet 11/19/2020 documented in this encounter Plan of Treatment Not on file documented as of this encounter Visit Diagnoses Not on filedocumented in this encounter Care Teams Fence Manufacture Supervisor Relationship Specialty Start Date End Date Prince Bello MD [address] [place] [address] PCP - General 07/18/16 documented as of this encounter
--- OUTSIDE RECORDS SUMMARY | 2024-04-16 14:13 | XMS_ITS | Encounter Summary ---
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 Gender Identity Not on file Sexual Orientation Not on file documented as of this encounter Ordered Prescriptions Prescription Sig Dispense Quantity Refills Last Filled Start Date End Date tiZANidine (ZANAFLEX) 2 mg tablet Take 1 tablet (2 mg total) by mouth every 6 (six) hours as needed for muscle spasms 30 tablet 1 11/07/2020 08/23/2021 documented in this encounter Plan of Treatment Not on file documented as of this encounter Visit Diagnoses Not on filedocumented in this encounter Care Teams [employer] Anchor Relationship Specialty Start Date End Date Prince Bello MD [address] [place] [address] PCP - General 07/18/16 documented as of this encounter
--- OUTSIDE RECORDS SUMMARY | 2024-04-16 14:13 | XMS_ITS | Encounter Summary ---
Author Organization [facility] Healthcare Address [address] [place] [address] Care Team Providers Care Outside Sales Manager Name Role Phone Prince Bello MD Primary Care Provider [phone] [phone] Encounter Details Date Type Department Care Team (Latest Contact Info) Description 07/24/2020 11:03 AM CDT - 07/24/2020 11:59 PM CDT Hospital Encounter [facility] [address] [facility] [address] [place] [address] Prince Bello MD [address] [place], [place] [address] [address] Lipid screening Discharge Disposition: Discharge to home or self [...] on file 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 10/28/2022 ibuprofen (ADVIL,MOTRIN) 600 mg tablet Take 1 tablet (600 mg total) by mouth every 8 (eight) hours as needed for pain 90 tablet 3 06/13/2019 08/20/2020 documented as of this encounter Discharge Disposition Disposition Code Departure Means Destination Discharge to home or self care documented in this encounter Plan of Treatment Not on file documented as of this encounter Procedures Procedure Name Priority Date/Time Associated Diagnosis Comments EGFR Routine 07/24/2020 11:03 AM CDT Lipid screening LIPID PANEL Routine 07/24/2020 11:03 AM CDT Lipid screening COMPREHENSIVE METABOLIC PANEL Routine 07/24/2020 11:03 AM CDT Lipid screening documented in this encounter Results * eGFR (07/24/2020 11:03 AM CDT) eGFR 102 mL/min/1.7 3 m2 MONICA MENENDEZ Comment: Interpretive Data Reference Interval Normal ?>/= 90 mL/min/1.73m2 Mildly decreased* ? 60 - 89 mL/min/1.73m2 Mildly to moderately decreased ?45 - 59 mL/min/1.73m2 Moderately to severely decreased ??30 - 44 mL/min/1.73m2 Severely decreased ?15 - 29 mL/min/1.73m2 Kidney Failure ?< 15 ??mL/min/1.73m2 *Relative to young adult level Estimated glomerular filtration rate is determined by the CKD-EPI equation recommended by the National Kidney Foundation (KDIGO 2012 Clinical Practice Guideline for the Evaluation and Management of Chronic Kidney Disease. Kidney Intnl Suppl Apr 2012;3:1). The CKD-EPI equation should not be used for patients with unstable renal function and has not been validated in children and those over 70. Current interpretive data was last reviewed 2020 Blood specimen (specimen) 07/24/2020 11:03 AM CDT 07/24/2020 4:51 PM CDT Prince Bello MD LAB BLOOD ORDERABLES Chanell bermudez Result [facility] [address] [address] Department [place] [address] * (ABNORMAL) Comprehensive metabolic panel (07/24/2020 11:03 AM CDT) Sodium 140 135 - 145 mmol/L [facility] Potassium, pl 3.9 3.3 - 4.9 mmol/L [facility] Chloride 104 97 - 110 mmol/L [facility] CO2 22 22 - 32 mmol/L [facility] Anion gap 14 2 - 15 mmol/L [facility] BUN 14 8 - 25 mg/dL [facility] Creatinine 0.85 0.80 - 1.30 mg/dL [facility] CH Glucose [...] - 10.3 mg/dL [facility] Bilirubin, total 0.8 0.1 - 1.2 mg/dL [facility] Protein, pl 8.1 6.5 - 8.5 g/dL [facility] Albumin 5.3(H) 3.5 - 5.0 g/dL [facility] Alk phos 52 40 - 130 Units/L [facility] ALT 29 7 - 55 Units/L [facility] AST 26 10 - 50 Units/L [facility] Blood specimen (specimen) 07/24/2020 11:03 AM CDT 07/24/2020 4:29 PM CDT Prince Bello MD LAB BLOOD ORDERABLES Chanell aidan Result [facility] [id number] [address] Department of Laboratories [place] [id number] * (ABNORMAL) Lipid panel (07/24/2020 11:03 AM CDT) Cholesterol 222(H) 30 - 199 mg/dL MONICA MENENDEZ Comment: [...] Data was last revised on 2017. Triglycerides 133 <=149 mg/dL MONICA MENENDEZ Comment: Interpretive Data [...] Data was last revised on 2017. HDL 62 >=40 mg/dL MONICA MENENDEZ Comment: Interpretive Data [...] was last revised on 2017. LDL, calculated 133(H) <=129 mg/dL MONICA MENENDEZ Comment: Interpretive Data [...] was last revised on 2017. Non-HDL Cholesterol 160 mg/dL MONICA MENENDEZ Comment: Interpretive Data Ages [...] 2017. Chol/HDL ratio 4 MONICA MENENDEZ Blood specimen (specimen) 07/24/2020 11:03 AM CDT 07/24/2020 4:29 PM CDT us Prince Bello MD LAB BLOOD ORDERABLES Chanell l Result MONICA [facility]EMMA [address] [address] Department [place] [address] documented in this encounter Visit Diagnoses Diagnosis Lipid screening Screening for lipoid disorders documented in this encounter Care Teams Outside Sales Manager Relationship Specialty Start Date End Date [place] [address] PCP - General 07/18/16 documented as of this encounter
--- OUTSIDE RECORDS SUMMARY | 2024-04-16 14:13 | XMS_ITS | Encounter Summary ---
Author Organization [facility] Medical Group Address [address] [place] [address] Care Team Providers Care Varnishing Unit Operator Name Role Phone Prince Bello MD Primary Care Provider [phone] Encounter Details Date Type Department Care Team (Late st Contact Info) Description 01/26/2018 Telephone [facility] [address] [address] Lori Fitzpatrick MA Social History Tobacco Use Types Packs/Day Years Used Date Smoking Tobacco: Former Smokeless Tobacco: Current Comments:Smoking History Pac ks/day: 1 Packs Alcohol Use Standard Drinks/Week Comments Yes 0 (1 standard drink = 0.6 oz pur e alcohol) Occassional Sex and Gender Information Value Date Recorded Sex Assigned at Not on file 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 Please notify patient of results. F/U as scheduled and/or as needed. documented in this encounter Plan of Treatment Not on file documented as of this encounter Visit Diagnoses Not on filedocumented in this encounter Care Teams Varnishing Unit Operator Relationship Specialty Start Date End Date Prince Bello MD [address] [place] [address] PCP - General 07/18/16 documented as of this encounter
--- OUTSIDE RECORDS SUMMARY | 2024-04-16 14:13 | XMS_ITS | Encounter Summary ---
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 Please mail to patient. Thank you. LIANCE NURSE documented in this encounter Plan of Treatment Not on file documented as of this encounter Procedures Procedure Name Priority Date/Time Associated Diagnosis Comments DISCHARGE LABORATORY CUMULATIVE REPORT 05/14/2017 12:00 AM COMPLIANCE NURSE EGFR Routine 05/13/2017 8:21 AM COMPLIANCE NURSE Encounter for screening for lipoid disorders LIPID PANEL Routine 05/13/2017 8:21 AM COMPLIANCE NURSE Encounter for screening for lipoid disorders COMPREHENSIVE METABOLIC PANEL Routine 05/13/2017 8:21 AM COMPLIANCE NURSE Encounter for screening for lipoid disorders documented in this encounter Results * DISCHARGE LABORATORY CUMULATIVE REPORT (05/14/2017 12:00 AM COMPLIANCE NURSE) Narrative 05/14/2017 12:00 AM COMPLIANCE NURSE Ordered by an unspecified provider. us Historical Provider LAB BLOOD ORDERABLES Chanell l Result * eGFR (05/13/2017 8:21 AM COMPLIANCE NURSE) eGFR >60 mL/min/1.7 3 m2 MONICA DENT (JESSI) Comment: Interpretive Data Reference Interval Normal ?>/= 90 mL/min/1.73m2 Mildly decreased* ? 60 - 89 mL/min/1.73m2 Mildly to moderately decreased ?45 - 59 mL/min/1.73m2 Moderately to severely decreased ??30 - 44 mL/min/1.73m2 Severely decreased ?15 - 29 mL/min/1.73m2 Kidney Failure ?< 15 ??mL/min/1.73m2 *Relative to young adult level If -[place] multiply value by 1.16. Estimated glomerular filtration rate is determined by [...] 70. Current interpretive data was last reviewed 2015. Blood specimen (specimen) 05/13/2017 8:21 AM COMPLIANCE NURSE 05/13/2017 8:55 AM COMPLIANCE NURSE Narrative MONICA DENT (JESSI) - 05/13/2017 9:30 AM COMPLIANCE NURSE us Mikayla Sanchez TOOL SMITH LAB BLOOD ORDERABLES Chanell bermudez Result MONICA DENT (JESSI) [address] [facility] Department [place] [address] * (ABNORMAL) Lipid panel (05/13/2017 8:21 AM COMPLIANCE NURSE) Cholesterol 224(H) 40 - 199 mg/dL MONICA DENT (JESSI) Comment: Interpretive Data Desirable: ??Less than 200 mg/dl ? Borderline High: ?200 - 239 mg/dl ? High: ??Greater than ?? 239 mg/dl Current interpretive data was last revised on 2014. Triglycerides 130.0 <=150.0 mg/dL MONCIA DENT (JESSI) Comment: Interpretive Data Normal: ? Less than 150 mg/dl Borderline high: ??150-199 mg/dl ?? High: ? 200-499 mg/dl ? Very high: ??Greater than or equal to 500 mg/dl Current interpretive data was last revised on 2016. HDL 55 40 - 60 mg/dL MONICA DENT (JESSI) Comment: Interpretive Data Low HDL Cholesterol: ? Less than 40 mg/dl Normal HDL Cholesterol: ??40-60 mg/dl High HDL Cholesterol: ?Greater than 60 mg/dl Current interpretive data was last revised on 2014. LDL, calculated 143 mg/dL CONSTANTINE DENT (JESSI) Comment: Interpretive Data Optimal ? Less than 100 mg/dL ? Near optimal/Above optimal ??100 - 129 mg/dL ? Borderline high ? 130 - 159 mg/dL ? High ?160 - 189 mg/dL ? Very high ? Greater than or = 190 mg/dL ? LDL values are not valid when the total Triglyceride is greater than 300 mg/dL. Current interpretive data was last revised on 2014. Non-HDL Cholesterol 169 mg/dL MONICA DENT (JESSI) Comment: Interpretive Data Optimal ? Less than 130 mg/dL Low Risk ?130 - 159 mg/dL Moderate Risk ? 160 - 189 mg/dL High Risk ? Greater than or equal to 190 mg/dL Current interpretive data was last revised on 2014. Blood specimen (specimen) 05/13/2017 8:21 AM COMPLIANCE NURSE 05/13/2017 8:55 AM COMPLIANCE NURSE Narrative MONICA JAILENE (JESSI) - 05/13/2017 9:30 AM COMPLIANCE NURSE us Mikayla Sanchez TOOL SMITH LAB BLOOD ORDERABLES Chanell bermudez Result MONICA DENT (JESSI) [address] [facility] Department [place] [address] * (ABNORMAL) Comprehensive metabolic panel (05/13/2017 8:21 AM COMPLIANCE NURSE) Sodium 140 135 - 145 mmol/L [facility] ([facility]ESSI) Potassium, pl 4.2 3.3 - 4.9 mmol/L [facility] ([facility]I) CO2 24 22 - 32 mmol/L [facility] ([facility]) BUN 15 8 - 25 mg/dL [facility] ([facility]ESSI) Glucose 102 70 - 199 mg/dL [facility] (JESSI) [...] Current interpretive data was last revised 2017. Creatinine 0.76(L) 0.80 - 1.30 mg/dL [facility] ([facility]) Calcium 9.8 8.5 - 10.3 mg/dL [facility] ([facility]) Chloride 103 97 - 110 mmol/L [facility] ([place]) Albumin 5.0 3.5 - 5.0 g/dL [facility] ([place]) AST 19 10 - 50 Units/L [facility] ([place]) ALT 20 7 - 55 Units/L [facility] ([facility]) Alk phos 47 40 - 130 Units/L [facility] ([place]) Bilirubin, total 0.5 0.1 - 1.2 mg/dL [facility] ([place]) Protein, pl 7.9 6.5 - 8.5 g/dL [facility] ([facility]) Anion gap 13 2 - 15 mmol/L [facility] ([facility]) Blood specimen (specimen) 05/13/2017 8:21 AM COMPLIANCE NURSE 05/13/2017 8:55 AM COMPLIANCE NURSE Narrative [facility] (JESSI) - 05/13/2017 9:30 AM COMPLIANCE NURSE us Mikayla Sanchez NP LAB BLOOD ORDERABLES Chanell l Result [facility] ([place]) [address] [facility] Department [place] [address] documented in this encounter Visit Diagnoses Diagnosis Encounter for screening for lipoid disorders documented in this encounter Care Teams Corporate Learning Consultant Relationship Specialty Start Date End Date [place] [address] PCP - General 07/18/16 documented as of this encounter
--- OUTSIDE RECORDS SUMMARY | 2024-04-16 14:13 | XMS_ITS | Encounter Summary ---
Author Organization [facility] Healthcare Address [address] [place] [address] Care Team Providers Care Roadside Mechanic Name Role Phone Prince Bello MD Primary Care Provider [phone] [phone] Encounter Details Date Type Department Care Team (Late st Contact Info) Description 09/14/2014 8:44 AM CDT - 09/14/2014 11:59 PM CDT Hospital Encounter [facility] Prince Gonzalez MD [address] [place] [address] Palpitations Social History Tobacco Use Types Packs/Day Years Used Date Smoking Tobacco: Former Cigarettes Q uit: 04/20/2012 Comments:Smoking History Pac ks/day: 1 Packs Alcohol Use Standard Drinks/Week Comments Yes 0 (1 standard drink = 0.6 oz pur e alcohol) Sex and Gender Information Value Date Recorded Sex Assigned at Not on file 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 us Historical Provider [facility] Final Result documented in this encounter Visit Diagnoses Diagnosis Palpitations documented in this encounter Care Teams Roadside Mechanic Relationship Specialty Start Date End Date Prince Bello MD [address] [place] [address] PCP - General 05/28/11 07/17/16 documented as of this encounter
--- OUTSIDE RECORDS SUMMARY | 2024-04-16 14:13 | XMS_ITS | Encounter Summary ---
Author Organization [facility] Medical Group Address [address] [place] [address] Care Team Providers Care Booker Name Role Phone Prince Bello MD Primary Care Provider [phone] [phone] Reason for Visit * Reason Comments Annual Exam pt is here for a rou jarod check up. 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 MANAGER Gender Identity Not on file Sexual Orientation Not on file documented as of this encounter Last Filed Vital Signs Vital Sign Reading Time Taken Comments Blood Pressure 110/72 06/13/2019 8:39 AM TRANSIT PLANNING MANAGER Pulse 93 06/13/2019 8:39 AM TRANSIT PLANNING MANAGER Temperature 36.8 ??C (98.2 ??F) 06/13/2019 8:39 AM CS T Respiratory Rate 18 06/13/2019 8:39 AM TRANSIT PLANNING MANAGER Oxygen Saturation 99% 06/13/2019 8:39 AM TRANSIT PLANNING MANAGER Inhaled Oxygen Concentration - - Weight 87.5 kg (193 lb) 06/13/2019 8:39 AM TRANSIT PLANNING MANAGER Height 177.8 cm (5' 10 ) 06/13/2019 8:39 AM TRANSIT PLANNING MANAGER Body Mass Index 27.69 06/13/2019 8:39 AM TRANSIT PLANNING MANAGER documented in this encounter Ordered Prescriptions Prescription Sig Dispense Quantity Refills Last Filled Start Date End Date ibuprofen (ADVIL,MOTRIN) 600 mg tablet Take 1 tablet (600 mg total) by mouth every 8 (eight) hours as needed for pain 90 tablet 3 06/13/2019 08/20/2020 documented in this encounter Progress Notes * Prince Bello MD - 06/13/2019 8:15 AM CST Images from the original note were not included. [facility] [place] Chief Complaint. Chief Complaint Patient presents with ??? Annual Exam pt is here for a routine check up. HPI. Patient is a 48 y.o. male Anupam presents for annual physical. Patient overall feeling well and continues to remain active. Patinet now 6 years smoke free but still chews with pouches. No oral lesions. Patient self-reports heavy EtOH consumption. 5-6 drinks/day weekday, greater on the weekends. Denies any legal, interpersonal complications. Strong family hx of EtOH. Did go EtOH free for 3 1/2 yearsin the past. No blood in the stoosl, no black/tarry stools. PMHx sig for Lumbar spine surgery. Past Medical History: Diagnosis Date ??? History of multiple allergies Allergies ??? HX OTHER MEDICAL spontaneous R pneumothorax; Comments: DRS 05/09/2014 - ??? Hyperlipidemia Hyperlipidemia Past Surgical History: Procedure Laterality Date ??? BACK SURGERY Back surgery ??? LASIK LASIK ??? OTHER SURGICAL HISTORY 2014 spontaneous R pneumothorax: R lung chest tube HOME MEDICATIONS : folic acid (FOLVITE) 400 mcg tablet ibuprofen (ADVIL,MOTRIN) 600 mg tablet ibuprofen (ADVIL,MOTRIN) 600 mg tablet fluticasone (FLONASE) 50 mcg/actuation nasal spray hydrOXYzine (ATARAX) 25 mg tablet No Known Allergies Social History Tobacco Use ??? Smoking status: Former Smoker ??? Smokeless tobacco: Current User ??? Tobacco comment: Smoking History Packs/day: 1 [...] Negative for sleep disturbance and suicidal ideas. The patient is not nervous/anxious. BP 110/72 (BP Location: Left arm, Patient Position: Sitting) Pulse 93 Temp 36.8 ??C (98.2 ??F) (Oral) Resp 18 Ht 177.8 cm (5' 10 ) Wt 87.5 kg (193 lb) SpO2 99% BMI 27.69 kg/m?? Physical Exam: Physical Exam Vitals signs reviewed. Constitutional: General: He is not in acute distress. HENT: Mouth/Throat: Pharynx: No oropharyngeal exudate. Eyes: General: No scleral icterus. Neck: Musculoskeletal: Neck supple. Vascular: No JVD. Cardiovascular: Rate and Rhythm: Normal rate and regular rhythm. Heart sounds: No murmur. Pulmonary: Effort: Pulmonary effort is normal. No respiratory distress. Breath sounds: Normal breath sounds. Abdominal: General: Bowel sounds are normal. Palpations: Abdomen is soft. Musculoskeletal: Right lower leg: No edema. Left lower leg: No edema. Lymphadenopathy: Cervical: No cervical adenopathy. Skin: Capillary Refill: Capillary refill takes less than 2 seconds. Findings: No erythema, lesion or rash. Neurological: Mental Status: He is alert and oriented to person, place, and time. Psychiatric: Thought Content: Thought content normal. Assessment & Plan: Diagnoses and all orders for this visit: Lipid screening (Primary) - Comprehensive metabolic panel; Future - Lipid panel; Future Annual physical exam Focus of exam is preventative in nature. Patient has been on strict low carb diet for the past 2 months. Anupam denies nay chagne in stools/urination. Reviewed complications associated with heavy EtOH usage including liver, gi complications including social implications. Reviewed assistance methods. Patinet is precontemplative. Revoewed no indications for early prostate/colon cancer screening. Reveiwed sun/skin protection. Reviewed rationale for influenza vaccination. Tobacco dependence syndrome Reviewed oral mucosa surveillance. Precontemplative. Other orders - ibuprofen (ADVIL,MOTRIN) 600 mg tablet; Take 1 tablet (600 mg total) by mouth every 8 (eight) hours as needed for pain BMI Follow-up includes: nutrition counseling. Body mass index is 27.69 kg/m??. Prince Bello MD SIT PLANNING MANAGER documented in this encounter Plan of Treatment Not on file documented as of this encounter Results * (ABNORMAL) Lipid panel (06/13/2019 9:11 AM TRANSIT PLANNING MANAGER) Cholesterol 204(H) 30 - 199 mg/dL MONICA MENENDEZ Comment: [...] Data was last revised on 2017. Triglycerides 113 <=149 mg/dL MONICA Comment: Interpretive Data Ages < [...] Data was last revised on 2017. HDL 44 >=40 mg/dL MONICA Comment: Interpretive Data Ages [...] was last revised on 2017. LDL, calculated 137(H) <=129 mg/dL MONICA Comment: Interpretive Data Ages [...] revised on 2017. Non-HDL Cholesterol 160 mg/dL [facility] CH Comment: Interpretive Data Ages [...] 2017. Chol/HDL ratio 5 [facility] CH Blood specimen (specimen) 06/13/2019 9:11 AM TRANSIT PLANNING MANAGER 06/13/2019 12:31 PM TRANSIT PLANNING MANAGER us Prince Bello MD LAB BLOOD ORDERABLES Chanell l Result [facility] [id number] [address] [place] [address] * (ABNORMAL) Comprehensive metabolic panel (06/13/2019 9:11 AM TRANSIT PLANNING MANAGER) Sodium 140 135 - 145 mmol/L [facility] CH Potassium, pl 4.2 3.3 - 4.9 mmol/L [facility] CH Chloride 104 97 - 110 mmol/L [facility] CH CO2 21(L) 22 - 32 mmol/L [facility] CH Anion gap 15 2 - 15 mmol/L [facility] CH BUN 13 8 - 25 mg/dL [facility] CH Creatinine 0.95 0.80 - 1.30 mg/dL [facility] CH Glucose 91 70 - 199 mg/dL [facility] CH Comment: [...] interpretive data was last revised 2017. Calcium 9.9 8.5 - 10.3 mg/dL [facility] CH Bilirubin, total 0.3 0.1 - 1.2 mg/dL [facility] CH Protein, pl 7.9 6.5 - 8.5 g/dL [facility] Albumin 5.0 3.5 - 5.0 g/dL [facility] CH Alk phos 45 40 - 130 Units/L [facility] ALT 24 7 - 55 Units/L [facility] CH AST 36 10 - 50 Units/L [facility] CH Blood specimen (specimen) 06/13/2019 9:11 AM TRANSIT PLANNING MANAGER 06/13/2019 12:31 PM TRANSIT PLANNING MANAGER Prince Bello MD LAB BLOOD ORDERABLES Chanell l Result MONICA [id number] [address] [place] [address] documented in this encounter Visit Diagnoses Diagnosis Lipid screening- Primary Screening for lipoid disorders Annual physical exam Routine general medical examination at a health care facility Tobacco dependence syndrome Tobacco use disorder BMI 27.0-27.9,adult documented in this encounter Discontinued Medications Medication Sig Discontinue Reason Start Date End Da te fluticasone (FLONASE) 50 mcg/actuation nasal sprayIndications:Cough Administer 1 spray into each nostril daily. Therapy completed 02/17/2017 06/13/2019 hydrOXYzine (ATARAX) 25 mg tablet Take 1 tablet (25 mg total) by mouth every 6 (six) hours as needed for itching. Therapy completed 02/11/2018 06/13/2019 ibuprofen (ADVIL,MOTRIN) 600 mg tablet Take 1 tablet (600 mg total) by mouth every 8 (eight) hours as needed for pain. Reorder 01/20/2018 06/13/2019 documented as of this encounter Care Teams Booker Relationship Specialty Start Date End Date Prince Bello MD [address] [place] [address] PCP - General 07/18/16 documented as of this encounter
--- OUTSIDE RECORDS SUMMARY | 2024-04-16 14:13 | XMS_ITS | Encounter Summary ---
Author Organization [facility] Address [address] [place] [address] Care Team Providers Care Glass Decorator Name Role Phone Prince Bello MD Primary Care Provider [phone] [phone] Reason for Visit * Reason Comments Neck Pain Pt states that Sunda y he had a pain that went from the back of his neck to his forehead for about 30 minutes. Pt states that ever since has been experiencing dull headaches behind his eyes. Pt states that he takes ibuprofen and it helps. 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 Gender Identity Not on file Sexual Orientation Not on file documented as of this encounter Last Filed Vital Signs Vital Sign Reading Time Taken Comments Blood Pressure 126/82 02/07/2021 9:12 AM CDT Pulse 89 02/07/2021 9:12 AM CDT Temperature 36.8 ??C (98.2 ??F) 02/07/2021 9:12 AM CD T Respiratory Rate 18 02/07/2021 9:12 AM CDT Oxygen Saturation 99% 02/07/2021 9:12 AM CDT Inhaled Oxygen Concentration - - Weight 87.5 kg (192 lb 12.8 oz) 02/07/2021 9:12 AM CDT Height 177.8 cm (5' 10 ) 02/07/2021 9:12 AM CDT Body Mass Index 27.66 02/07/2021 9:12 AM CDT documented in this encounter Ordered Prescriptions Prescription Sig Dispense Quantity Refills Last Filled Start Date End Date ibuprofen (ADVIL,MOTRIN) 600 mg tablet Take 1 tablet (600 mg total) by mouth every 8 (eight) hours as needed for pain 90 tablet 3 02/07/2021 3 methylPREDNISolone (MEDROL DOSEPACK) 4 mg Dosepack Take as directed on package. 21 tablet 02/07/2021 1 documented in this encounter Progress Notes * Prince Bello MD - 02/07/2021 9:00 AM CDT Images from the original note were not included. [facility] Ripper Chief Complaint. Chief Complaint Patient presents with ??? Neck Pain Pt states that Thursday he had a pain that went from the back of his neck to his forehead for about 30 minutes. Pt states that ever since has been experiencing dull headaches behind his eyes. Pt statesthat he takes ibuprofen and it helps. HPI. Patient is a 50 y.o. male Neck Pain This is a new problem. The current episode started in the past 7 days. The problem occurs intermittently. The problem has been gradually improving. Associated with: climax and orgasm. The pain is present in the right side (radiated from occipital region to the temporal/frontal region. ). The quality of the pain is described as aching and burning. Pain severity now: severe for 5- 10 minues and thensoresness. No focal neurologial defects noted by patient. The pain is same all the time (improving). Associated symptoms include headaches. Pertinent negatives include no chest pain, fever, pain withswallowing, photophobia, tingling or weakness. The treatment provided mild relief. Past Medical History: Diagnosis Date ??? History of multiple allergies Allergies ??? HX OTHER MEDICAL spontaneous R pneumothorax; Comments: DRS 05/09/2014 - ??? Hyperlipidemia Hyperlipidemia Past Surgical History: Procedure Laterality Date ??? BACK SURGERY Back surgery ??? LASIK LASIK ??? OTHER SURGICAL HISTORY 2013 spontaneous R pneumothorax: R lung chest tube HOME MEDICATIONS : cetirizine (ZyrTEC) 5 mg tablet fluticasone propionate (FLONASE) 50 mcg/actuation nasal spray folic acid (FOLVITE) 400 mcg tablet ibuprofen (ADVIL,MOTRIN) 600 mg tablet tiZANidine (ZANAFLEX) 2 mg tablet ibuprofen (ADVIL,MOTRIN) 600 mg tablet methylPREDNISolone (MEDROL DOSEPACK) 4 mg Dosepack No Known Allergies Social History Tobacco Use [...] HENT: Negative for postnasal drip and rhinorrhea. Eyes: Negative for photophobia. Respiratory: Negative for chest tightness, shortness of breath and wheezing. Cardiovascular: Negative for chest pain and leg swelling. Gastrointestinal: Negative for abdominal pain, blood in stool, constipation, diarrhea, nausea and vomiting. Genitourinary: Negative for dysuria, hematuria and urgency. Musculoskeletal: Positive for arthralgias and neck pain. Negative for back pain and myalgias. Skin: Negative for rash. Neurological: Positive for headaches. Negative for dizziness, tingling, tremors, weakness and light-headedness. Psychiatric/Behavioral: Negative for sleep disturbance and suicidal ideas. The patient is not nervous/anxious. BP 126/82 (BP Location: Right arm, Patient Position: Sitting) Pulse 89 Temp 36.8 ??C (98.2 ??F)(Oral) Resp 18 Ht 177.8 cm (5' 10 ) Wt 87.5 kg (192 lb 12.8 oz) SpO2 99% BMI 27.66 kg/m?? Physical Exam: Physical Exam Vitals reviewed. [...] takes less than 2 seconds. Findings: No erythema. Neurological: Mental Status: He is alert and oriented to person, place, and time. Motor: No weakness. Comments: CN intact, Strenght 5/5 bilaterally UE and LE. No hemotympanum. No open wounds/sores. Psychiatric: Thought Content: Thought content normal. Assessment & Plan: Diagnoses and all orders for this visit: Orgasmic headache (Primary) No focal neurological s/s. Will monitor response. WIll continue to follow and monitor response. No change at the present time. Reveiwed evaluatoni for anatomical survey issues and possible clustuer headache component. Montior for neurological s/s. Other orders - methylPREDNISolone (MEDROL DOSEPACK) 4 mg Dosepack; Take as directed on package. - ibuprofen (ADVIL,MOTRIN) 600 mg tablet; Take 1 tablet (600 mg total) by mouth every 8 (eight) hours as needed for pain BMI Follow-up includes: nutrition counseling. Body mass index is 27.66 kg/m??. Prince Bello MD * Agnieszka Sen MA - 02/07/2021 9:00 AM CDT 03/13/2021 Mailed overdue order w/ letter to patient Thank you Agnieszka FINISHER FORGING * Agnieszka Sen MA - 02/07/2021 9:00 AM CDT 03/13/2021 Mailed overdue order w/ letter to patient Thank you Agnieszka FINISHER FORGING documented in this encounter Plan of Treatment Not on file documented as of this encounter Visit Diagnoses Diagnosis Orgasmic headache- Primary Headache associated with sexual activity documented in this encounter Discontinued Medications Medication Sig Discontinue Reason Start Date End Da te ibuprofen (ADVIL,MOTRIN) 600 mg tablet Take 1 tablet (600 mg total) by mouth every 8 (eight) hours as needed for pain Reorder 08/20/2020 02/07/2021 documented as of this encounter Care Teams Glass Decorator Relationship Specialty Start Date End Date Prince Bello MD [address] [place] [address] PCP - General 07/18/16 documented as of this encounter
--- OUTSIDE RECORDS SUMMARY | 2024-04-16 14:13 | XMS_ITS | Encounter Summary ---
Author Organization [facility] Medical [facility] Address [address] [place] [address] Care Team Providers Care Director Medical Affairs Name Role Phone Prince Bello MD Primary Care Provider [phone] [phone] Reason for Visit * Reason Onset Date Comments Nasal Congestion 11/19/2020 Encounter Details Date Type Department Care Team (Late st Contact Info) Description 11/19/2020 Telephone [facility] [address] [place] [address] Prince Bello MD [address] [place] [address] Nasal Congestion Social History Tobacco Use Types Packs/Day Years [...] on file 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 * Telephone Encounter - Prince Bello MD - 11/19/2020 11:37 AM CDT Sterodi pack entered. Please notify aptient. * Telephone Encounter - Marta Castro - 11/19/2020 10:44 AM CDT Pt called, he is complaining of congestion. States that he has been taking Claritin, Flonase, and Mucinex but it is not helping. Would like to know if you could call out something to his pharmacy [facility]. Patient was seen in the ER for symptoms last night. documented in this encounter Plan of Treatment Not on file documented as of this encounter Visit Diagnoses Not on filedocumented in this encounter Care Teams Director Medical Affairs Relationship Specialty Start Date End [place] [address] PCP - General 07/18/16 documented as of this encounter
--- OUTSIDE RECORDS SUMMARY | 2024-04-16 14:13 | XMS_ITS | Encounter Summary ---
Author Organization [facility] Address [address] [place] [address] Care Team Providers Care Senior Ios Developer Name Role Phone Prince Bello MD Primary Care Provider [phone] [phone] Encounter Details Date Type Department Care Team (Late st Contact Info) Description 08/16/2015 9:42 AM CDT - 08/16/2015 11:59 PM CDT Hospital Encounter [facility] Prince Gonzalez MD [address] [place] [address] Other intervertebral disc disorders, lumbar region; Other intervertebral disc degeneration, lumbar region; Other specified postprocedural state; Abnormal findings on diagnostic imaging of other specified body structures Social History Tobacco Use Types Packs/Day Years Used Date Smoking Tobacco: Former Cigarettes Q uit: 04/20/2012 Comments:Smoking History Pac ks/day: 1 Packs Alcohol Use Standard Drinks/Week Comments Yes 0 (1 standard drink = 0.6 oz pur e alcohol) Sex and Gender Information Value Date Recorded Sex Assigned at Not on file 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 ??Lower back pain. ??History of previous lumbar spinal surgery. RESULT: Sagittal T1 and T2; axial T1 and T2. ??No prior study available for comparison. Diminished signal within the disc at L5-S1, consistent with desiccation. Significant loss of height at the L5-S1 disc. ??Prominent disc bulging at L5-S1. ??To a large extent this has a diffuse annular appearance, but this is slightly more prominent to the left, focal annular bulge vs. disc protrusion. ??There is only slight encroachment upon the thecal sac, but there is mild to moderate encroachment upon the foramina bilaterally. ??A laminectomy defect is seen on the left at this level. ??The left nerve root is deviated slightly posteriorly. ??Above L4, no significant disc bulging or herniation. ??Vertebral body heights are maintained. ??Mild endplate changes at L5-S1. ??Some mild spurring at L5-S1. IMPRESSION: 1. PROMINENT DIFFUSE ANNULAR BULGING DISC AT L5-S1. ??SLIGHT PROMINENCE OF THE DISC TO THE LEFT AT L5-S1, FOCAL ANNULAR BULGE VS. DISC PROTRUSION. SLIGHT ENCROACHMENT UPON THE THECAL SAC. ??FORAMINAL NARROWING BILATERALLY. ??LEFT NERVE ROOT IS DEVIATED SLIGHTLY POSTERIORLY. 2. LAMINECTOMY DEFECT ON THE LEFT AT L5-S1. Interpreting Physician: ??VANGIE MONTES M.D. ??Read on: ??Aug 16 2015 10:44A Transcribed by: ??herve ??On: Aug 16 2015 ??1:43P Approved Electronically by: ??VANGIE MONTES M.D. ??on: ??Aug 16 2015 10:56P Attending: ??DR PRINCE BELLO Requesting: ??DR PRINCE BELLO Requesting Fax: ??[phone] Attending Fax: ??[phone] Attending ID: ??[id number] Requesting ID: ??[id number] Report To 1 ID: ??[id number] Report To 1 Name: ??DR PRINCE BELLO Report To 1 FAX: ??[phone] NextGen Order #: Procedure Note Provider, MD Edilberto - 08/20/2016 MRI Lumbar Spine WO Acc#: [id number] DATE OF EXAM: Aug 16 2015 CLINICAL HISTORY: Disc disorder lumbar region. Lower back pain. History of previouslumbar spinal surgery. RESULT: Sagittal T1 and T2; axial T1 and T2. No prior study available forcomparison. Diminished signal within the disc at L5-S1, consistent withdesiccation. Significant loss of height at the L5-S1 disc. Prominent discbulging at L5-S1. To a large extent this has a diffuse annularappearance, but this is slightly more prominent to the left, focal annularbulge vs. disc protrusion. There is only slight encroachment upon thethecal sac, but there is mild to moderate encroachment upon the foraminabilaterally. A laminectomy defect is seen on the left at this level. Theleft nerve root is deviated slightly posteriorly. Above L4, nosignificant disc bulging or herniation. Vertebral body heights aremaintained. Mild endplate changes at L5- S1. Some mild spurring atL5-S1. IMPRESSION: 1. PROMINENT DIFFUSE ANNULAR BULGING DISC AT L5-S1. SLIGHT PROMINENCE OFTHE DISC TO THE LEFT AT L5-S1, FOCAL ANNULAR BULGE VS. DISC PROTRUSION.SLIGHT ENCROACHMENT UPON THE THECAL SAC. FORAMINAL NARROWING BILATERALLY.LEFT NERVE ROOT IS DEVIATED SLIGHTLY POSTERIORLY. 2. LAMINECTOMY DEFECT ON THE LEFT AT L5-S1. Interpreting Physician: VANGIE MONTES M.D. Read on: Aug 16 2015 10:44A Transcribed by: herve On: Aug 16 2015 1:43P Approved Electronically by: VANGIE MONTES M.D. on: Aug 16 2015 10:56P Attending: DR PRINCE BELLO Requesting: DR PRINCE BELLO Requesting Attending Attending ID: [id number] Requesting ID: [id number] Report To 1 ID: [id number] Report To 1 Name: DR PRINCE BELLO Report To 1 FAX: [phone] NextGen Order #: us Historical Provider MD DRAKE MRI PROCEDURES Final Result documented in this encounter Visit Diagnoses Diagnosis Other intervertebral disc disorders, lumbar region Other intervertebral disc degeneration, lumbar region Other specified postprocedural state Abnormal findings on diagnostic imaging of other specified body structures documented in this encounter Care Teams Senior Ios Developer Relationship Specialty Start Date End [place] [address] PCP - General 05/28/11 07/17/16 documented as of this encounter
--- OUTSIDE RECORDS SUMMARY | 2024-04-16 14:13 | XMS_ITS | Encounter Summary ---
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 LDL, calculated 133(H) <=129 mg/dL MONICA Comment: Interpretive Data Ages [...] on 2017. Non-HDL Cholesterol 160 mg/dL MONICA Comment: Interpretive Data Ages < [...] revised on 2017. Chol/HDL ratio 4 CERNER Blood specimen (specimen) 07/24/2020 11:03 AM CDT 07/24/2020 4:29 PM CDT Prince Bello MD LAB BLOOD ORDERABLES Chanell bermudez Result MONICA [id number] [facility] [place] [address] * (ABNORMAL) Comprehensive metabolic panel (07/24/2020 11:03 [...] LAB BLOOD ORDERABLES Chanell aidan Result MONICA [id number] [facility] [place] [address] documented in this encounter Visit Diagnoses Diagnosis Lipid screening- Primary Screening for lipoid disorders documented in this encounter Care Teams Disc Jockey Relationship Specialty Start Date End Date [place] [address] PCP - General 07/18/16 documented as of this encounter
--- OUTSIDE RECORDS SUMMARY | 2024-04-16 14:13 | XMS_ITS | Encounter Summary ---
Author Organization [facility] Medical [facility] Address [address] [place] [address] Care Team Providers Care Band Sawmill Operator Name Role Phone Prince Bello MD Primary Care Provider [phone] [phone] Reason for Visit * Reason Comments Preventative Care annual physical Encounter Details Date Type Department Care Team (Late st Contact Info) Description 08/20/2020 2:30 PM CDT Office Visit [facility] [address] [address] Prince Bello MD [address] [place] [address] Atypical nevus of abdominal wall (Primary Dx); Annual physical exam; Osteoarthritis, unspecified osteoarthritis type, unspecified site; BMI 27.0-27.9,adult; Seasonal allergic rhinitis due to pollen Social History Tobacco Use Types Packs/Day Years [...] on file 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 Gender Identity Not on file Sexual Orientation Not on file documented as of this encounter Last Filed Vital Signs Vital Sign Reading Time Taken Comments Blood Pressure 114/80 08/20/2020 2:30 PM CDT Pulse 84 08/20/2020 2:30 PM CDT Temperature 36.7 ??C (98.1 ??F) 08/20/2020 2:30 PM CD T Respiratory Rate 18 08/20/2020 2:30 PM CDT Oxygen Saturation 97% 08/20/2020 2:30 PM CDT Inhaled Oxygen Concentration - - Weight 85.5 kg (188 lb 9.6 oz) 08/20/2020 2:30 P M CDT Height 177.8 cm (5' 10 ) 08/20/2020 2:30 PM CDT Body Mass Index 27.06 08/20/2020 2:30 PM CDT documented in this encounter Ordered Prescriptions Prescription Sig Dispense Quantity Refills Last Filled Start Date End Date methylPREDNISolone (MEDROL DOSEPACK) 4 mg Dosepack Take as directed on package. 21 tablet 08/20/2020 1 ibuprofen (ADVIL,MOTRIN) 600 mg tablet Take 1 tablet (600 mg total) by mouth every 8 (eight) hours as needed for pain 90 tablet 3 08/20/2020 1 documented in this encounter Progress Notes * Prince Bello MD - 08/20/2020 2:30 PM CDT Images from the original note were not included. [facility] A Bret Chief Complaint. Chief Complaint Patient presents with ??? Preventative Care annual physical HPI. Patient is a 50 y.o. male Patinet with completion of COVID vaccine approx 7 weeks ago. TOlerated well. LINETTE from COVID in January. Patient has been dealign with increased stressors related to allergic rhinitis. Denies any f/c, N/V. Sig postnasal discharge or drainage. Patient with sig degeenrative chagnes and will continue to follow response. Patient with progression of skin lesion on abdominal wall. Atypical color and irreugalr borders. Past Medical History: Diagnosis Date ??? History [...] Positive for arthralgias. Negative for back pain, gait problem, myalgias and neck pain. Neurological: Negative for dizziness, tremors, weakness, light-headedness and headaches. Hematological: Negative for adenopathy. Psychiatric/Behavioral: Negative for sleep disturbance and suicidal ideas. The patient is not nervous/anxious. BP 114/80 (BP Location: Left arm, Patient Position: Sitting) Pulse 84 Temp 36.7 ??C (98.1 ??F) (Oral) Resp 18 Ht 177.8 cm (5' 10 ) Wt 85.5 kg (188 lb 9.6 oz) SpO2 97% BMI 27.06 kg/m?? Physical Exam: Physical Exam Vitals reviewed. [...] is soft. Musculoskeletal: Cervical back: Neck supple. Lymphadenopathy: Cervical: No cervical adenopathy. Skin: Findings: No erythema. Comments: Variegated irreglar border on abdominal wall. Flat but beneath scar tissue from prior excision. Neurological: Mental Status: He is alert and oriented to person, place, and time. Psychiatric: Thought Content: Thought content normal. Assessment & Plan: Diagnoses and all orders for this visit: Atypical nevus of abdominal wall (Primary) - Ambulatory referral to Dermatology; Future Annual physical exam No indication for early prostate/colon cancer screneing. WIll monitor resopnse. Apprecaite covid vaccine and will continue to follow resopsne. No change and monitor response. Osteoarthritis, unspecified osteoarthritis type, unspecified site Continue to follow with iburpfoen. BMI 27.0-27.9,adult Reviewed goal of 150min/week. Seasoanl allerigc rhinitis due to pollen Add medrol to flonase and zyrtec. Other orders - ibuprofen (ADVIL,MOTRIN) 600 mg tablet; Take 1 tablet (600 mg total) by mouth every 8 (eight) hours as needed for pain - methylPREDNISolone (MEDROL DOSEPACK) 4 mg Dosepack; Take as directed on package. BMI Follow-up includes: nutrition counseling. Body mass index is 27.06 kg/m??. Prince Bello MD documented in this encounter Plan of Treatment Not on file documented as of this encounter Visit Diagnoses Diagnosis Atypical nevus of abdominal wall- Primary Annual physical exam Routine general medical examination at a health care facility Osteoarthritis, unspecified osteoarthritis type, unspecified site BMI 27.0-27.9,adult Seasonal allergic rhinitis due to pollen documented in this encounter Discontinued Medications Medication Sig Discontinue Reason Start Date End Da te ibuprofen (ADVIL,MOTRIN) 600 mg tablet Take 1 tablet (600 mg total) by mouth every 8 (eight) hours as needed for pain Reorder 06/13/2019 08/20/2020 documented as of this encounter Historical Medications * This list may reflect changes made after this encounter. fluticasone propionate (FLONASE) 50 mcg/actuation nasal spray Administer 1 spray into each nostril daily 3 cetirizine (ZyrTEC) 5 mg tablet Take 5 mg by mouth daily 3 added in this encounter Care Teams Band Sawmill Operator Relationship Specialty Start Date End Date Prince Bello MD [address] [place] [address] PCP - General 07/18/16 documented as of this encounter
--- OUTSIDE RECORDS SUMMARY | 2024-04-16 14:13 | XMS_ITS | Encounter Summary ---
Author Organization [facility] Healthcare Address [address] [place] [address] Care Team Providers Care Hansard Reporter Name Role Phone Prince Bello MD Primary Care Provider [phone] Reason for Referral * Cardiology (Routine) - Closed Specialty Diagnoses / Procedures Referred By Sade walsh Referred To Contact Cardiology Diagnoses Numbness and tingling in left arm Procedures Stress Treadmill Test Prince Bello MD Phone: tel: fax: [address] [phone] Referral ID Status Reason Start Date Expiration Date Visits Re quested Visits Authorized [id number] Closed 01/20/2018 08/01/2019 1 1 Reason for Visit * Cardiology (Routine) - Closed Specialty Diagnoses / Procedures Referred By Sade walsh Referred To Contact Cardiology Diagnoses Numbness and tingling in left arm Procedures Stress Treadmill Test Prince Bello MD Phone: tel: fax: [address] [phone] Referral ID Status Reason Start Date Expiration Date Visits Re quested Visits Authorized [id number] Closed 01/20/2018 08/01/2019 1 1 Encounter Details Date Type Department Care Team (Latest Contact Info) Description 01/26/2018 8:17 AM CDT - 01/26/2018 11:59 PM CDT Hospital Encounter [facility] [address] [place] [address] Prince Bello MD [address] [place] [address] Numbness and tingling in left arm Discharge Disposition: Discharge to home or self [...] on file 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 8.5 g 3 02/17/2017 8 fluticasone (FLONASE) 50 mcg/actuation nasal sprayIndications :Cough Administer 1 spray into each nostril daily. 1 spray 5 02/17/2017 0 folic acid (FOLVITE) 400 mcg tablet Take 400 mcg by mouth daily. 3 hydrOXYzine (ATARAX) 25 mg tablet Take 1 tablet (25 mg total) by mouth every 6 (six) hours as needed for itching. 30 tablet 02/11/2018 0 ibuprofen (ADVIL,MOTRIN) 600 mg tablet Take 1 tablet (600 mg total) by mouth every 8 (eight) hours as needed for pain. 90 tablet 3 01/20/2018 0 documented as of this encounter Discharge Disposition Disposition Code Departure Means Destination Discharge to home or self care documented in this encounter Plan of Treatment Not on file documented as of this encounter Procedures Procedure Name Priority Date/Time Associated Diagnosis Comments STRESS TEST ONLY TREADMILL Routine 01/26/2018 9:07 AM CDT Numbness and tingling in left arm documented in this encounter Results * Stress Treadmill Test (01/26/2018 9:07 AM CDT) Anatomical Region Laterality Modality Nuclear Medicine 01/26/2018 8:40 AM CDT Narrative 01/26/2018 9:40 AM CDT [address] [place] [address] EXERCISE STRESS Patient Name: SALVATORE QUEEN A : 1970 Study Date: 01/26/2018 08:40:00 Gender: M Tech: gila figueroa Location: Ref.Physician: PRINCE BELLO Height(Cm): 70 BSA: Weight(Kg): 180 Order Physician: PRINCE BELLO Procedures: Stress Report: Treadmill stress Exam. Indications: numbness and tingleing left arm. Findings: Procedure Data: Exercise Time: 9.8. Resting HR 67 bpm. Peak HR: 171 bpm. Predicted Maximal HR 174 bpm. Target HR: 148 bpm. Percent Max Predicted HR Achieved: 98 %. Baseline BP: 125/80. Peak BP: 209/87. METS achieved: 11. Rate-Pressure Product: 50630 BPM*mmHg. Max ST:. Performed By: Gila Figueroa. Resting ECG: Normal sinus rhythm, superior axis, RBBB. Post ECG: No diagnostic ST changes. Arrhythmia: No arrhythmias seen. Exercise Capacity: Good exercise capacity. Cardiac Symptoms With Stress: Symptoms with stress were Dyspnea and leg pain. Target HR Achieved: Target heart rate was achieved. Reason For Termination: Fatigue. Dyspnea. THR achieved. Patient request. BP Response: Blood pressure response is hypertensive. Exam Interpreted: Read by . Conclusions: 1. Adequate stress test in regards to heart rate. 2. No exercise induced chest pain. 3. No definite ischemia on stress EKG. Electronically Signed By: Dr Rick Hines 2018-01-26 09:40:00 CDT CC: CC: Procedure Note Rick Hines MD - 01/26/[address] [place] [address] EXERCISE STRESS Patient Name: SALVATORE QUEEN APatiemomo ID: [id number] : [id number] Date: 01/26/2018 08:40:00 Gender: Amiracession #: [id number] Tech: gila Tylerocation: Ref.Physician: Edson BELLOt(Cm): 70 BSA: Weight(Kg): 180 Order Physician: PRINCE BELLO Procedures: Stress Report: Treadmill stress Exam. Indications: numbness and tingleing left arm. Findings: Procedure Data: Exercise Time: 9.8. Resting HR 67 bpm. Peak HR: 171 bpm. Predicted MaximalHR 174 bpm. Target HR: 148 bpm. Percent Max Predicted HR Achieved: 98 %. Baseline BP:125/80. Peak BP: 209/87. METS achieved: 11. Rate-Pressure Product: 74101 BPM*mmHg. MaxST:. Performed By: Gila Figueroa. Resting ECG: Normal sinus rhythm, superior axis, RBBB. Post ECG: No diagnostic ST changes. Arrhythmia: No arrhythmias seen. Exercise Capacity: Good exercise capacity. Cardiac Symptoms With Stress: Symptoms with stress were Dyspnea and leg pain. Target HR Achieved: Target heart rate was achieved. Reason For Termination: Fatigue. Dyspnea. THR achieved. Patient request. BP Response: Blood pressure response is hypertensive. Exam Interpreted: Read by . Conclusions: 1. Adequate stress test in regards to heart rate. 2. No exercise induced chest pain. 3. No definite ischemia on stress EKG. Electronically Signed By: Dr Rick Hines 2018-01-26 09:40:00 CDT CC: CC: us Prince Bello MD CV STRESS PROCEDURES Chanell l Result documented in this encounter Visit Diagnoses Diagnosis Numbness and tingling in left arm documented in this encounter Care Teams Hansard Reporter Relationship Specialty Start Date End Date [place] [address] [address] [place] [address] PCP - General 07/18/16 documented as of this encounter
--- OUTSIDE RECORDS SUMMARY | 2024-04-16 14:13 | XMS_ITS | Encounter Summary ---
Author Organization [facility] Healthcare Address [address] [place] [address] Care Team Providers Care Segmental Wall Installer Name Role Phone Prince Bello MD Primary Care Provider [phone] Reason for Visit * Reason Comments Nasal Congestion Encounter Details Date Type Department Care Team (Late st Contact Info) Description 11/18/2020 10:06 PM CDT - 11/18/2020 11:46 PM CDT Emergency [facility] Emergency Department [address] [place] [address] Johnny Polanco MD [address] 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 Gender Identity Not on file Sexual Orientation Not on file documented as of this encounter Last Filed Vital Signs Vital Sign Reading Time Taken Comments Blood Pressure 146/96 11/18/2020 9:25 PM CDT Pulse 93 11/18/2020 9:25 PM CDT Temperature 36.4 ??C (97.5 ??F) 11/18/2020 9:25 PM CD T Respiratory Rate 20 11/18/2020 9:25 PM CDT Oxygen Saturation 96% 11/18/2020 9:25 PM CDT Inhaled Oxygen Concentration - - Weight 85.3 kg (188 lb) 11/18/2020 9:25 PM CDT Height 177.8 cm (5' 10 ) 11/18/2020 9:25 PM CDT Body Mass Index 26.98 11/18/2020 9:25 PM CDT documented in this encounter Discharge Diagnoses Diagnosis Nasal congestion - NASAL CONGESTION Other diseases of nasal cavity and sinuses Contact with and (suspected) exposure to covid-19 - CONTACT WITH AND (SUSPECTED) EXPOSURE TO COVID-19 documented in this encounter Discharge Instructions * Attachments The following attachments cannot be sent through Care Everywhere. * Decongestant/Expectorant (By mouth) (Belizean) * Allergic Rhinitis (AfterCare(R) Instructions(ER/ED)) (Belizean) documented in this encounter Medications at Time of Discharge cetirizine (ZyrTEC) 10 mg chewable tablet Take 1 tablet (10 mg total) by mouth daily for 15 days 15 tablet 11/18/2020 1 cetirizine (ZyrTEC) 5 mg tablet Take 5 [...] for pain 90 tablet 3 08/20/2020 1 tiZANidine (ZANAFLEX) 2 mg tablet Take 1 tablet (2 mg total) by mouth every 6 (six) hours as needed for muscle spasms 30 tablet 1 11/07/2020 2 documented as of this encounter Ordered Prescriptions Prescription Sig Dispense Quantity Refills Last Filled Start Date End Date cetirizine (ZyrTEC) 10 mg chewable tablet Take 1 tablet (10 mg total) by mouth daily for 15 days 15 tablet 11/18/2020 12/03/2020 documented in this encounter Discharge Disposition Disposition Code Departure Means Destination Discharge to home or self care documented in this encounter ED Notes * Johnny Polanco MD - 11/18/2020 10:10 PM CDT HPI Chief Complaint Patient presents with ??? Nasal Congestion Patient is a 50-year-old male, smoker, presents emergency room complaining of nasal congestion for greater than 2 weeks. Patient has a history of multiple allergies. No respiratory complaints. Patient states he lost his sense of smell and taste today. Patient was tested for COVID-19 3 days ago and it was negative. Patient also has been vaccinated for COVID-19. No documented fevers. Patient stateshe has had intermittent diarrhea. No urinary symptoms. There is no aggravating alleviating factors.There is no other complaints of further review of symptoms negative Patient History: Patient Active Problem List Diagnosis Date Noted ??? Disorder of intervertebral disc 09/03/2013 ??? Tobacco dependence syndrome 09/03/2013 Past Medical History: Diagnosis Date ??? History of multiple allergies Allergies ??? HX OTHER MEDICAL spontaneous R pneumothorax; Comments: DRS 05/09/2014 - ??? Hyperlipidemia Hyperlipidemia Past Surgical History: Procedure Laterality Date ??? BACK SURGERY Back surgery ??? LASIK LASIK ??? OTHER SURGICAL HISTORY 2013 spontaneous R pneumothorax: R lung chest tube Family History Problem Relation Age of Onset ??? Other Father 4-v CABG; ??? Coronary artery disease Father Coronary artery disease; ??? Hyperlipidemia Father Hyperlipidemia; ??? Other Mother Alive and well; ??? Esophageal cancer Father esophageal cancer; Social History Tobacco Use ??? Smoking status: Former Smoker ??? Smokeless tobacco: Current User ??? Tobacco comment: Smoking History Packs/day: 1 Packs Substance Use Topics ??? Alcohol use: Yes Comment: Occassional ??? Drug use: Not on file Social History Social History Narrative ??? Not on file Review of Systems Review of Systems All other systems reviewed and are negative. Physical Exam ED Triage Vitals [11/18/205] Temp Pulse Resp BP SpO2 36.4 ??C (97.5 ??F) 93 20 146/96 96 % Temp src Heart Rate Source Patient Position BP Location FiO2 (%) Temporal -- -- -- -- Physical Exam Vitals and nursing note reviewed. Constitutional: General: He is not in acute distress. Appearance: He is not ill-appearing, toxic-appearing or diaphoretic. HENT: Head: Normocephalic and atraumatic. Right Ear: Tympanic membrane normal. Left Ear: Tympanic membrane normal. Nose: Congestion present. No rhinorrhea. Mouth/Throat: Mouth: Mucous membranes are moist. Pharynx: Oropharynx is clear. Eyes: Extraocular Movements: Extraocular movements intact. Conjunctiva/sclera: Conjunctivae normal. Pupils: Pupils are equal, round, and reactive to light. Cardiovascular: Rate and Rhythm: Normal rate and regular rhythm. Pulses: Normal pulses. Pulmonary: Effort: Pulmonary effort is normal. Breath sounds: Normal breath sounds. No wheezing. Musculoskeletal: General: Normal range of motion. Cervical back: Normal range of motion. No rigidity. Skin: General: Skin is warm and dry. Capillary Refill: Capillary refill takes less than 2 seconds. Neurological: Mental Status: He is alert and oriented to person, place, and time. Gait: Gait normal. Psychiatric: Thought Content: Thought content normal. [facility] ED Course as of Nov 19 2339 Time: 11/18 2332 Comment: Patient aware of test results and the need for follow-up. Of note, patient complained to nurse that this examiner did not examine his nose-this is not true, nose was thoroughly examined withnurse present. By: Johnny Polanco MD Final diagnoses: Nasal congestion Johnny Polanco MD 11/18/202339 * Alexandria Snigh RN - 11/18/2020 9:27 PM CDT Pt c/o ongoing nasal congestions for 2 weeks. Pt reports being tested for Covid with negative results. Tiffani pt was unable to taste or smell his dinner. Pt states he is fully vaccinated. documented in this encounter Plan of Treatment Not on file documented as of this encounter Procedures Procedure Name Priority Date/Time Associated Diagnosis Comments COVID-19 CORONAVIRUS RNA Routine 11/18/2020 10:17 PM CDT documented in this encounter Results * COVID-19 Coronavirus RNA Nasopharyngeal (11/18/2020 10:17 PM CDT) COVID-19 RNA Negative Negative MONICA DOWNING) Comment: Interpretive data: Synonyms for this test include: PCR and NAAT . ??This test is performed using the [employer] Xpert Xpress assay. This is a real-time RT-PCR test intended for the qualitative detection of nucleic acid from the SARS-CoV-2. This assay has been reviewed by the FDA for Emergency Use Authorization (EUA). The performance characteristics have been verified by the performing laboratory. Results must be considered in the clinical context and a negative result does not rule out infection. Interpretive data last revised May 24, 2020. Employeed in healthcare? No MONICA DOWNING) status? No CE MARIANNE DOWNING) Group care resident? No MONICA DENT (JESSI) Hospitalized? No MONICA DENT (JESSI) Is patient in ICU? No C ERNISMAEL DOWNING) Symptomatic as defined by CDC? Yes MONICA DOWNING) Nasopharyngeal 11/18/2020 10 :17 PM CDT 11/18/2020 10:22 PM CDT Narrative MONICA DENT (JESSI) - 11/18/2020 11:14 PM CDT What is the reason for testing?->Likely to be discharged Date of Symptom Onset->11/15/20 us Johnny Polanco MD LAB MICROBIOLOGY - GENERAL OR DERABLES Final Result MONICA DOWNING) 1 [facility] Department [place] [address] documented in this encounter Visit Diagnoses Diagnosis Nasal congestion- Primary Other diseases of nasal cavity and sinuses documented in this encounter Additional Health Concerns Infection Onset Date Last Indicated Resolved Time COVID: Suspected 11/18/2020 11/18/2020 11/18/2020 11:15 PM CDT documented as of this encounter Care Teams Segmental Wall Installer Relationship Specialty Start Date End Date Prince Bello MD [address] [place] [address] PCP - General 07/18/16 documented as of this encounter
--- OUTSIDE RECORDS SUMMARY | 2024-04-16 14:13 | XMS_ITS | Encounter Summary ---
Author Organization [facility] Address [address] [place] [address] Care Team Providers Care Security Inspector Name Role Phone Isi Bello MD Primary Care Provider [phone] [phone] Reason for Referral * Cardiology (Routine) - Closed Specialty Diagnoses / Procedures Referred By Contac t Referred To Contact Cardiology Diagnoses Numbness and tingling in left arm Procedures Stress Treadmill Test Isi Bello MD Phone: tel: fax: [address] [address] Referral ID Status Reason Start Date Expiration Date Visits Re quested Visits Authorized [id number] Closed 01/20/2018 08/01/2019 1 1 Reason for Visit * Reason Comments Knee Pain both knees but left is worse. Been bothering him off and on for over a year Stress pt experiencing stre ss at work, thinks anxiety needs to be addressed Encounter Details Date Type Department Care Team (Late st Contact Info) Description 01/20/2018 10:45 AM CDT Office Visit [facility] [address] [place] [address] Isi Bello MD [address] [place] [address] Refused influenza vaccine (Primary Dx); Numbness and tingling in left arm; Screening for lipid disorders; Chest tightness; BMI 27.0-27.9,adult; Primary osteoarthritis of both knees; Generalized anxiety disorder Social History Tobacco Use Types Packs/Day Years Used Date Smoking Tobacco: Former Smokeless Tobacco: Current Comments:Smoking History Pac ks/day: 1 Packs Alcohol Use Standard Drinks/Week Comments Yes 0 (1 standard drink = 0.6 oz pur e alcohol) Occassional Sex and Gender Information Value Date Recorded Sex Assigned at Not on file 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 Gender Identity Not on file Sexual Orientation Not on file documented as of this encounter Last Filed Vital Signs Vital Sign Reading Time Taken Comments Blood Pressure 104/58 01/20/2018 11:02 AM CDT Pulse 72 01/20/2018 11:02 AM CDT Temperature 36.4 ??C (97.6 ??F) 01/20/2018 1 1:02 AM CDT Respiratory Rate 18 01/20/2018 11:0 2 AM CDT Oxygen Saturation 98% 01/20/2018 11: 02 AM CDT Inhaled Oxygen Concentration - - Weight 85.7 kg (188 lb 14.4 oz) 018 11:02 AM CDT Height 177.8 cm (5' 10 ) 01/20/2018 11: 02 AM CDT Body Mass Index 27.1 01/20/2018 11:02 AM CDT documented in this encounter Ordered Prescriptions Prescription Sig Dispense Quantity Refills Last Filled Start Date End Date hydrOXYzine (ATARAX) 25 mg tablet Take 1 tablet (25 mg total) by mouth every 6 (six) hours as needed for itching. 30 tablet 02/11/2018 06/13/2019 hydrOXYzine (ATARAX) 25 mg tablet Take 1 tablet (25 mg total) by mouth every 6 (six) hours as needed for itching. 30 tablet 01/20/2018 01/20/2018 ibuprofen (ADVIL,MOTRIN) 600 mg tablet Take 1 tablet (600 mg total) by mouth every 8 (eight) hours as needed for pain. 90 tablet 3 01/20/2018 06/13/2019 documented in this encounter Progress Notes * Isi Bello MD - 01/20/2018 10:45 AM CDT Images from the original note were not included. [facility] Chief Complaint. Chief Complaint Patient presents with ??? Knee Pain both knees but left is worse. Been bothering him off and on for over a year ??? Stress pt experiencing stress at work, thinks anxiety needs to be addressed HPI. Patient is a 47 y.o. male Patient with physcial symptoms that accompany anxiety including left arm numbnes. Not correlated with physical exetion. + family hx of CAD at early age. Knee Pain The incident occurred more than 1 week ago. The pain is present in the right knee and left knee. The quality of the pain is described as aching and cramping. The pain is at a severity of 5/10. The pain is moderate. The pain has been fluctuating since onset. Pertinent negatives include no inability to bear weight, loss of motion or loss of sensation. The symptoms are aggravated by movement and weight bearing. He has tried heat, ice, NSAIDs and rest for the symptoms. The treatment provided moderate relief. Anxiety Presents for follow-up visit. Symptoms include excessive worry, insomnia, irritability and nervous/anxious behavior. Patient reports no chest pain, decreased concentration, depressed mood, dizziness,nausea, shortness of breath or suicidal ideas. Symptoms occur most days (patient notes sig stressors at work. No Si/HI on direct questioning. ). The severity of symptoms is moderate. The quality of sleep is fair. Nighttime awakenings: occasional. Past Medical History: Diagnosis Date ??? History [...] mcg tablet ibuprofen (ADVIL,MOTRIN) 600 mg tablet albuterol HFA (PROAIR HFA) 90 mcg/actuation inhaler fluticasone (FLONASE) 50 mcg/actuation nasal spray hydrOXYzine (ATARAX) 25 mg tablet No Known Allergies Social History Substance Use Topics ??? Smoking status: Former Smoker ??? Smokeless tobacco: Current User Comment: Smoking History Packs/day: 1 Packs ??? Alcohol use Yes Comment: Occassional Family History Problem Relation Age of Onset ??? Other Father 4-v CABG; ??? Coronary artery disease Father Coronary artery disease; ??? Hyperlipidemia Father Hyperlipidemia; ??? Other Mother Alive and well; ??? Esophageal cancer Father esophageal cancer; Review of Systems: Review of Systems Constitutional: Positive for irritability. Negative for activity change, fatigue and fever. HENT: Negative for postnasal drip and rhinorrhea. Respiratory: Negative for chest tightness, shortness of breath and wheezing. Cardiovascular: Negative for chest pain and leg swelling. Gastrointestinal: Negative for abdominal pain, blood in stool, constipation, diarrhea, nausea and vomiting. Genitourinary: Negative for dysuria, hematuria and urgency. Musculoskeletal: Positive for arthralgias and joint swelling. Negative for back pain, myalgias and neck pain. Neurological: Negative for dizziness, tremors, weakness, light-headedness and headaches. Hematological: Negative for adenopathy. Psychiatric/Behavioral: Negative for decreased concentration, sleep disturbance and suicidal ideas.The patient is nervous/anxious and has insomnia. BP 104/58 (BP Location: Right arm, Patient Position: Sitting) Pulse 72 Temp 36.4 ??C (97.6 ??F)(Oral) Resp 18 Ht 177.8 cm (5' 10 ) Wt 85.7 kg (188 lb 14.4 oz) SpO2 98% BMI 27.10 kg/m?? Physical Exam: Physical Exam Constitutional: He is oriented to person, place, and time. He appears well- nourished. No distress. HENT: Mouth/Throat: No oropharyngeal exudate. Eyes: No scleral icterus. Neck: Neck supple. No JVD present. Cardiovascular: Normal rate and regular rhythm. No murmur heard. Pulmonary/Chest: Effort normal and breath sounds normal. No respiratory distress. Abdominal: Soft. Bowel sounds are normal. Musculoskeletal: He exhibits tenderness. He exhibits no edema. Antalgic gait. Lymphadenopathy: He has no cervical adenopathy. Neurological: He is alert and oriented to person, place, and time. Skin: No erythema. Psychiatric: He has a normal mood and affect. Thought content normal. Vitals reviewed. Assessment & Plan: Diagnoses and all orders for this visit: Refused influenza vaccine (Primary) Numbness and tingling in left arm - ECG 12 lead - Stress Treadmill Test; Future Risk stratification and monitor response at the present time. Will continue to follow and no changeat present time. ECG in office wnl. HR: 66. No acute st-t wave changes, no ischemic signs. No arrhythmia. Respiratory variation. Screening for lipid disorders - Comprehensive metabolic panel; Future - Lipid panel; Future Chest tightness See discussion as above. BMI 27.0-27.9,adult Patient remains physically active and will continue to follow. Primary osteoarthritis of both knees Patient contineus to follow with orthopedics and will montior response. Generalized anxiety disorder Stable at the present time. Will follow hydroxyzine. Other orders - ibuprofen (ADVIL,MOTRIN) 600 mg tablet; Take 1 tablet (600 mg total) by mouth every 8 (eight) hours as needed for pain. - hydrOXYzine (ATARAX) 25 mg tablet; Take 1 tablet (25 mg total) by mouth every 6 (six) hours as needed for itching. BMI Follow-up includes: nutrition counseling. Body mass index is 27.1 kg/m??. Isi Bello MD ON CLASSER documented in this encounter Plan of Treatment Not on file documented as of this encounter Procedures Procedure Name Priority Date/Time Associated Diagnosis Comments ECG 12-LEAD Routine 01/20/2018 Numbness and tingling in left arm documented in this encounter Results * Stress Treadmill Test (01/26/2018 9:07 AM CDT) Anatomical Region Laterality Modality Nuclear Medicine 01/26/2018 8:40 AM CDT Narrative 01/26/2018 9:40 AM CDT [address] [place] [address] EXERCISE STRESS Patient Name: SALVATORE QUEEN A : 1970 Study Date: 01/26/2018 08:40:00 Gender: M Tech: gila figueroa Location: Ref.Physician: ISI BELLO Height(Cm): 70 BSA: Weight(Kg): 180 Order Physician: ISI BELOL Procedures: Stress Report: Treadmill stress Exam. Indications: numbness and tingleing left arm. Findings: Procedure Data: Exercise Time: 9.8. Resting HR 67 bpm. Peak HR: 171 bpm. Predicted Maximal HR 174 bpm. Target HR: 148 bpm. Percent Max Predicted HR Achieved: 98 %. Baseline BP: 125/80. Peak BP: 209/87. METS achieved: 11. Rate-Pressure Product: 47987 BPM*mmHg. Max ST:. Performed By: Gila Figueroa. [...] Procedure Note Rick Hines MD - 01/26/[address] [place] [address] EXERCISE STRESS Patient Name: SALVATORE QUEEN APatient ID: [id number] : [id number] Date: 01/26/2018 08:40:00 Gender: MAccession #: [id number] Tech: gila Scottocation: Ref.Physician: Carey BELLO(Cm): 70 BSA: Weight(Kg): 180 Order Physician: ISI BELLO Procedures: Stress Report: Treadmill stress Exam. Indications: numbness and tingleing left arm. Findings: Procedure Data: Exercise Time: 9.8. Resting HR 67 bpm. Peak HR: 171 bpm. Predicted MaximalHR 174 bpm. Target HR: 148 bpm. Percent Max Predicted HR Achieved: 98 %. Baseline BP:125/80. Peak BP: 209/87. METS achieved: 11. Rate-Pressure Product: 09408 BPM*mmHg. MaxST:. Performed By: Gila Figueroa. Resting [...] Rick Hines 2018-01-26 09:40:00 CDT CC: CC: Isi Bello MD CV STRESS PROCEDURES Chanell l Result * ECG 12 lead (01/20/2018) Isi Bello MD ECG ORDERABLES Final Res ult documented in this encounter Visit Diagnoses Diagnosis Refused influenza vaccine- Primary Numbness and tingling in left arm Screening for lipid disorders Chest tightness Other chest pain BMI 27.0-27.9,adult Primary osteoarthritis of both knees Generalized anxiety disorder Numbness and tingling in left arm documented in this encounter Discontinued Medications Medication Sig Discontinue Reason Start Date End Da te ibuprofen (ADVIL,MOTRIN) 600 mg tablet TAKE ONE TABLET BY MOUTH UP TO THREE TIMES A DAY WITH FOOD Duplicate order 10/13/2016 01/20/2018 ibuprofen (ADVIL,MOTRIN) 600 mg tablet take 1 tablet by oral route up to 3 times every day with food Reorder 04/21/2013 01/20/2018 hydrOXYzine (ATARAX) 25 mg tablet Take 1 tablet (25 mg total) by mouth every 6 (six) hours as needed for itching. Reorder 01/20/2018 01/20/2018 documented as of this encounter Historical Medications * This list may reflect changes made after this encounter. folic acid (FOLVITE) 400 mcg tablet Take 400 mcg by mouth daily. 10/28/2022 added in this encounter Care Teams Security Inspector Relationship Specialty Start Date End Date Isi Bello MD [address] [place] [address] PCP - General 07/18/16 documented as of this encounter
--- OUTSIDE RECORDS SUMMARY | 2024-04-16 14:13 | XMS_ITS | Encounter Summary ---
Author Organization [facility] Address [address] [place] [address] Care Team Providers Care Marketing Rep Name Role Phone Prince Bello MD Primary Care Provider [phone] [phone] Encounter Details Date Type Department Care Team (Late st Contact Info) Description 05/25/2017 Telephone [facility] [address] [address] Lori Fitzpatrick MA Social History Tobacco Use Types Packs/Day Years Used Date Smoking Tobacco: Former Smokeless Tobacco: Current Comments:Smoking History Pac ks/day: 1 Packs Alcohol Use Standard Drinks/Week Comments Yes 0 (1 standard drink = 0.6 oz pur e alcohol) Occassional Sex and Gender Information Value Date Recorded Sex Assigned at Not on file 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 Please mail to patient. Thank you. R SEPARATION PHOTOGRAPHER documented in this encounter Plan of Treatment Not on file documented as of this encounter Visit Diagnoses Not on filedocumented in this encounter Care Teams Marketing Rep Relationship Specialty Start Date End Date Prince Bello MD [address] [place] [address] PCP - General 07/18/16 documented as of this encounter
--- OUTSIDE RECORDS SUMMARY | 2024-04-16 14:13 | XMS_ITS | Encounter Summary ---
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
--- OUTSIDE RECORDS SUMMARY | 2024-04-16 14:13 | XMS_ITS | Encounter Summary ---
Author Organization [facility] Address [address] [place] [address] Care Team Providers Care Aircraft Air Conditioning Mechanic Name Role Phone Prince Bello MD Primary Care Provider [phone] [phone] Reason for Referral * Diagnostic Imaging (Routine) - Closed Specialty Diagnoses / Procedures Referred By Contac t Referred To Contact Diagnoses Chest pain, unspecified type Procedures XR Chest Pa Lateral 2 Views Prince Bello MD Phone: tel: fax: [address] [address] Referral ID Status Reason Start Date Expiration Date Visits Re quested Visits Authorized [id number] Closed 04/03/2018 10/13/2019 1 1 AND SHOVEL WORKER Encounter Details Date Type Department Care Team (Late st Contact Info) Description 04/03/2018 Orders Only [facility] [address] [place] [id number] Prince Bello MD [address] [place] [place] [address] Chest pain, unspecified type (Primary Dx) Social History Tobacco Use Types Packs/Day Years Used Date Smoking Tobacco: Former Smokeless Tobacco: Current Comments:Smoking History Pac ks/day: 1 Packs Alcohol Use Standard Drinks/Week Comments Yes 0 (1 standard drink = 0.6 oz pur e alcohol) Occassional Sex and Gender Information Value Date Recorded Sex Assigned at Not on file Legal Sex Male 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 Electronically signed by: Jg Figueroa M.D. Narrative 04/03/2018 12:01 PM PICK AND SHOVEL WORKER XR CHEST PA LATERAL 2 VIEWS HISTORY: Chest pain. COMPARISON: 05/09/2014 FINDINGS: PA inspiratory and expiratory radiographs and a lateral radiograph obtained. ??Heart size is normal. ??Lungs are clear. ??There is no pneumothorax. Procedure Note Jg Figueroa MD - 04/03/2018 XR CHEST PA LATERAL 2 VIEWS HISTORY: Chest pain. COMPARISON: 05/09/2014 FINDINGS: PA inspiratory and expiratory radiographs and a lateral radiograph obtained. Heart size is normal. Lungs are clear. There is no pneumothorax. IMPRESSION: NO ACTIVE DISEASE. Electronically signed by: Jg Figueroa M.D. Prince Bello MD IMG XR PROCEDURES Final R esult documented in this encounter Visit Diagnoses Diagnosis Chest pain, unspecified type- Primary Chest pain, unspecified type documented in this encounter Care Teams Aircraft Air Conditioning Mechanic Relationship Specialty Start Date End Date Prince [place]ello [place] [address] PCP - General 07/18/16 documented as of this encounter
--- OUTSIDE RECORDS SUMMARY | 2024-04-16 14:13 | XMS_ITS | Encounter Summary ---
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 * Telephone Encounter - Prince Bello MD - 11/07/2020 5:34 PM CDT Added muscle relaxatn to monirot resposen. Agree with supportive measures. * Telephone Encounter - Luke Kumar RN - 11/07/2020 5:24 PM CDT Spoke to patient. He is at a 4-5/10 pain level now, down from 9/10 and is using ice/ibuprofen for his cracked #10 rib. He asked if the pain and the occasional popping was normal with deep breathing and I told him it can be, depending on where he fractured it at. I suggested him using Ice during the day and try some heat at night when he is sitting down resting before bed but not to sleep on the heating pad, so he doesn't burn his skin. I told him it can take quite a while for it to heal. Dr. Bello Is there anything else you suggest that I missed? * Telephone Encounter - Sally Somers - 11/07/2020 12:49 PM CDT luke Pt stated that he broke his rib the other day and would like a call back because he wants to know if the pain that he is having is normal Please advise [phone] documented in this encounter Plan of Treatment Not on file documented as of this encounter Visit Diagnoses Not on filedocumented in this encounter Care Teams Quantitative Analyst Developer Relationship Specialty Start Date End Date [place] [address] PCP - General 07/18/16 documented as of this encounter
--- OUTSIDE RECORDS SUMMARY | 2024-04-16 14:13 | XMS_ITS | Encounter Summary ---
Author Organization [facility] Address [address] [place] [address] Care Team Providers Care Project Assistant Name Role Phone Prince Bello MD Primary Care Provider [phone] [phone] Reason for Visit * Reason Comments Cough Onset couple weeks, states no mucus/phlegm, no congestion, no fevers. Would like to know if he can have a refill on the Flonase. Encounter Details Date Type Department Care Team (Late st Contact Info) Description 02/17/2017 1:45 PM CDT Office Visit [facility] [address] [address] Mikayla Sanchez, RETAIL TEAM LEADER [address] [facility] [address] [place] [address] Cough (Primary Dx); BMI 26.0-26.9,adult; Encounter for screening for lipoid disorders Social History Tobacco Use Types Packs/Day Years Used Date Smoking Tobacco: Former Smokeless Tobacco: Current Comments:Smoking History Pac ks/day: 1 Packs Alcohol Use Standard Drinks/Week Comments Yes 0 (1 standard drink = 0.6 oz pur e alcohol) Occassional Sex and Gender Information Value Date Recorded Sex Assigned at Not on file Legal Sex 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 Gender Identity Not on file Sexual Orientation Not on file documented as of this encounter Last Filed Vital Signs Vital Sign Reading Time Taken Comments Blood Pressure 132/84 02/17/2017 2:03 PM CDT Pulse 78 02/17/2017 2:03 PM CDT Temperature 36.9 ??C (98.4 ??F) 02/17/2017 2:03 PM CD T Respiratory Rate - - Oxygen Saturation 97% 02/17/2017 2:03 PM CDT Inhaled Oxygen Concentration - - Weight 84.1 kg (185 lb 4.8 oz) 02/17/2017 2:03 P M CDT Height 177.8 cm (5' 10 ) 02/17/2017 2:03 PM CDT Body Mass Index 26.59 02/17/2017 2:03 PM CDT documented in this encounter Ordered Prescriptions Prescription Sig Dispense Quantity Refills Last Filled Start Date End Date albuterol HFA (PROAIR HFA) 90 mcg/actuation inhalerIndications :Cough Inhale 2 puffs every 4 (four) hours as needed for wheezing or shortness of breath. 8.5 g 3 02/17/2017 8 fluticasone (FLONASE) 50 mcg/actuation nasal sprayIndications:C ough Administer 1 spray into each nostril daily. 1 spray 5 02/17/2017 0 documented in this encounter Progress Notes * Mikayla Sanchez, RETAIL TEAM LEADER - 02/17/2017 1:45 PM CDT [facility] Chief Complaint. Chief Complaint Patient presents with ??? Cough Onset couple weeks, states no mucus/phlegm, no congestion, no fevers. Would like to know if he can have a refill on the Flonase. HPI. Patient is a 46 y.o. male COUGH Non productive, dry ~2wks. Worse in evening. Has been sleeping in recliner as to not keep coughing. Otc: has been using tylenol cold/flu liquid. Cough This is a new problem. Episode onset: 2 weeks. The problem occurs every few minutes. The cough is non-productive. Associated symptoms include postnasal drip and a sore throat. Pertinent negatives include no chest pain, chills, ear congestion, ear pain, fever or rhinorrhea. Past Medical History: Diagnosis Date ??? History of multiple allergies Allergies ??? HX OTHER MEDICAL spontaneous R pneumothorax; Comments: DRS 05/09/2014 - ??? Hyperlipidemia Hyperlipidemia Past Surgical History: Procedure Laterality Date ??? BACK SURGERY Back surgery ??? LASIK LASIK ??? OTHER SURGICAL HISTORY 2013 spontaneous R pneumothorax: R lung chest tube HOME MEDICATIONS : fluticasone (FLONASE) 50 mcg/actuation nasal spray ibuprofen (ADVIL,MOTRIN) 600 mg tablet fluticasone (FLONASE) 50 mcg/actuation nasal spray albuterol HFA (PROAIR HFA) 90 mcg/actuation inhaler ibuprofen (ADVIL,MOTRIN) 600 mg tablet amoxicillin (AMOXIL) 875 mg tablet No Known Allergies Social History [...] Constitutional: Negative for chills and fever. HENT: Positive for postnasal drip and sore throat. Negative for ear pain and rhinorrhea. Respiratory: Positive for cough. Cardiovascular: Negative. Negative for chest pain, palpitations and leg swelling. Physical Exam: Physical Exam Constitutional: He is oriented to person, place, and time. He appears well- developed and well-nourished. HENT: Head: Normocephalic. Right Ear: Hearing, tympanic membrane, external ear and ear canal normal. Tympanic membrane is not erythematous and not bulging. No middle ear effusion. Left Ear: Hearing, tympanic membrane, external ear and ear canal normal. Tympanic membrane is not erythematous and not bulging. No middle ear effusion. Nose: Right sinus exhibits no maxillary sinus tenderness and no frontal sinus tenderness. Left sinus exhibits no maxillary sinus tenderness and no frontal sinus tenderness. Mouth/Throat: Posterior oropharyngeal erythema present. Eyes: Conjunctivae and EOM are normal. Pupils are equal, round, and reactive to light. Neck: Normal range of motion. Cardiovascular: Normal rate, regular rhythm, normal heart sounds and intact distal pulses. Exam reveals no gallop and no friction rub. No murmur heard. Pulmonary/Chest: Breath sounds normal. He has no wheezes. He has no rales. Musculoskeletal: Normal range of motion. Neurological: He is alert and oriented to person, place, and time. Skin: Skin is warm and dry. Psychiatric: He has a normal mood and affect. Nursing note and vitals reviewed. Assessment & Plan: Diagnoses and all orders for this visit: 1. Cough (primary) Fluticasone & albuterol inhaler sent. To resume daily zyrtec. Reviewed med Ses & scheduling. Instructed in albuterol inhaler use. Aware to rinse mouth after use. Reviewed red flags; what would warrant rtc or ED for further eval. Push fluids. - fluticasone (FLONASE) 50 mcg/actuation nasal spray; Administer 1 spray into each nostril daily. - albuterol HFA (PROAIR HFA) 90 mcg/actuation inhaler; Inhale 2 puffs every 4 (four) hours as needed for wheezing or shortness of breath. 2. BMI 26.0-26.9,adult BMI=26.59. 3. Encounter for screening for lipoid disorders Lipid panel ordered; will call w/results when received. Reviewed diet/exercise recommendations. - Comprehensive metabolic panel; Future - Lipid panel; Future To resume zyrtec. Cosigned by Prince Bello MD at 02/17/2017 3:14 PM CDT documented in this encounter Plan of Treatment Not on file documented as of this encounter Results * (ABNORMAL) Lipid panel (05/13/2017 8:21 AM DIGITAL CAMERA TECHNICIAN) [facility] [address] Cholesterol 224(H) 40 - 199 mg/dL MONICA DENT (JESSI) Comment: Interpretive Data Desirable: ??Less than 200 mg/dl ? Borderline High: ?200 - 239 mg/dl ? High: ??Greater than ?? 239 mg/dl Current interpretive data was last revised on 2014. Triglycerides 130.0 <=150.0 mg/dL CERNER [facility] (JESSI) Comment: Interpretive Data Normal: ? Less than 150 mg/dl Borderline high: ??150-199 mg/dl ?? High: ? 200-499 mg/dl ? Very high: ??Greater than or equal to 500 mg/dl Current interpretive data was last revised on 2016. HDL 55 40 - 60 mg/dL [facility] (JESSI) Comment: Interpretive Data Low HDL Cholesterol: ? Less than 40 mg/dl Normal HDL Cholesterol: ??40-60 mg/dl High HDL Cholesterol: ?Greater than 60 mg/dl Current interpretive data was last revised on 2014. LDL, calculated 143 mg/dL CONSTANTINE GUEVARA [facility] (JESSI) Comment: Interpretive Data Optimal ? Less [...] on 2014. Non-HDL Cholesterol 169 mg/dL [facility] (JESSI) Comment: Interpretive Data Optimal ? Less than 130 mg/dL Low Risk ?130 - 159 mg/dL Moderate Risk ? 160 - 189 mg/dL High Risk ? Greater than or equal to 190 mg/dL Current interpretive data was last revised on 2014. Blood specimen (specimen) 05/13/2017 8:21 AM DIGITAL CAMERA TECHNICIAN 05/13/2017 8:55 AM DIGITAL CAMERA TECHNICIAN Narrative [facility] (JESSI) - 05/13/2017 9:30 AM DIGITAL CAMERA TECHNICIAN us Mikayla Sanchez RETAIL TEAM LEADER LAB BLOOD ORDERABLES Chanell l Result [facility] (JESSI) 1 [facility] Department [place] [address] * (ABNORMAL) Comprehensive metabolic panel (05/13/2017 8:21 AM DIGITAL CAMERA TECHNICIAN) Sodium 140 135 - 145 mmol/L CERNER [...] Bilirubin, total 0.5 0.1 - 1.2 mg/dL [facility] (JESSI) Protein, pl 7.9 6.5 - 8.5 g/dL [facility] (JESSI) Anion gap 13 2 - 15 mmol/L ZAINPETEY [facility] (JESSI) Blood specimen (specimen) 05/13/2017 8:21 AM DIGITAL CAMERA TECHNICIAN 05/13/2017 8:55 AM DIGITAL CAMERA TECHNICIAN Narrative [facility] (JESSI) - 05/13/2017 9:30 AM DIGITAL CAMERA TECHNICIAN us Mikayla Sanchez RETAIL TEAM LEADER LAB BLOOD ORDERABLES Chanell l Result [facility] (JESSI) 1 [facility] Department [place] [address] documented in this encounter Visit Diagnoses Diagnosis Cough- Primary BMI 26.0-26.9,adult Encounter for screening for lipoid disorders Encounter for screening for lipoid disorders documented in this encounter Discontinued Medications Medication Sig Discontinue Reason Start Date End Da te amoxicillin (AMOXIL) 875 mg tablet take 1 tablet by oral route every 12 hours 07/07/2016 02/17/2017 fluticasone (FLONASE) 50 mcg/actuation nasal spray inhale 1 spray by Intranasal route every 12 hours in each nostril Reorder 07/07/2016 02/17/2017 documented as of this encounter Care Teams Project Assistant Relationship Specialty Start Date End Date [place] [address] PCP - General 07/18/16 documented as of this encounter
--- OUTSIDE RECORDS SUMMARY | 2024-04-16 14:13 | XMS_ITS | Encounter Summary ---
Author Organization 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 * Telephone Encounter - Sally Somers - 02/12/2021 1:28 PM CDT Anette, please call pt he has questions on pa on mri's [phone] documented in this encounter Plan of Treatment Not on file documented as of this encounter Visit Diagnoses Not on filedocumented in this encounter Care Teams Rigging Slinger Relationship Specialty Start Date End Date Prince Bello MD [address] [place] [address] PCP - General 07/18/16 documented as of this encounter
--- OUTSIDE RECORDS SUMMARY | 2024-04-16 14:13 | XMS_ITS | Encounter Summary ---
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
--- OUTSIDE RECORDS SUMMARY | 2024-04-16 14:13 | XMS_ITS | Encounter Summary ---
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 Gender Identity Not on file Sexual Orientation Not on file documented as of this encounter Plan of Treatment Not on file documented as of this encounter Procedures Procedure Name Priority Date/Time Associated Diagnosis Comments SCAN - RADIOLOGY/IMAGING 10/31/2020 documented in this encounter Results * SCAN - RADIOLOGY/IMAGING (10/31/2020) Anatomical Region Laterality Modality Other us Provider Scanning Final Result documented in this encounter Visit Diagnoses Not on filedocumented in this encounter Care Teams Metal Tester Relationship Specialty Start Date End Date Prince Bello MD [address] [place] [address] PCP - General 07/18/16 documented as of this encounter
--- OUTSIDE RECORDS SUMMARY | 2024-04-16 14:13 | XMS_ITS | Encounter Summary ---
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
--- OUTSIDE RECORDS SUMMARY | 2024-04-16 14:13 | XMS_ITS | Encounter Summary ---
Author Organization [facility] Address [address] [place] [address] Care Team Providers Care Electronic Heat Seal Operator Name Role Phone Prince Bello MD Primary Care Provider [phone] [phone] Reason for Referral * Diagnostic Imaging (Routine) - Closed Specialty Diagnoses / Procedures Referred By Contac t Referred To Contact Diagnoses Chest pain, unspecified type Procedures XR Chest Pa Lateral 2 Views Prince Bello MD Phone: tel: fax: [address] [phone] Referral ID Status Reason Start Date Expiration Date Visits Re quested Visits Authorized [id number] Closed 04/03/2018 10/13/2019 1 1 DUE FURNACE OPERATOR Reason for Visit * Diagnostic Imaging (Routine) - Closed Specialty Diagnoses / Procedures Referred By Contac t Referred To Contact Diagnoses Chest pain, unspecified type Procedures XR Chest Pa Lateral 2 Views Prince Bello MD Phone: tel: fax: [address] [phone] Referral ID Status Reason Start Date Expiration Date Visits Re quested Visits Authorized [id number] Closed 04/03/2018 10/13/2019 1 1 Encounter Details Date Type Department Care Team (Latest Contact Info) Description 04/03/2018 11:14 AM RESIDUE FURNACE OPERATOR - 04/03/2018 11:59 PM RESIDUE FURNACE OPERATOR Hospital Encounter [facility] [address] [place] [address] Prince Bello MD [address] [place] [address] Chest pain, unspecified type Discharge Disposition: Discharge to home or self [...] on file Legal Sex Male 1:49 PM RESIDUE FURNACE OPERATOR Gender Identity Not on file Sexual Orientation Not on file documented as of this encounter Medications at Time of Discharge fluticasone (FLONASE) 50 mcg/actuation nasal sprayIndications :Cough [...] Progress Notes * Mikayla Sanchez NP - 04/03/2018 11:59 PM CST Dear Salvatore Queen, Please check your [employer] account. Your recent test results have been sent to your [employer] account. If any questions, please call. Thank you, Merry Flores DUE FURNACE OPERATOR documented in this encounter Plan of Treatment Not on file documented as of this encounter Procedures Procedure Name Priority Date/Time Associated Diagnosis Comments XR CHEST PA LATERAL 2 VIEWS Schedule MARIO, Read MARIO (Appt Today, Awaiting Results) 04/03/2018 11:45 AM RESIDUE FURNACE OPERATOR Chest pain, unspecified type documented in this encounter Results * XR Chest Pa Lateral 2 Views (04/03/2018 11:45 AM RESIDUE FURNACE OPERATOR) Anatomical Region Laterality Modality Body, Chest N/A Computed Radiogr aphy 04/03/2018 11:5 7 AM RESIDUE FURNACE OPERATOR Impressions 04/03/2018 12:01 PM RESIDUE FURNACE OPERATOR NO ACTIVE DISEASE. Electronically signed by: Jg Figueroa M.D. Narrative 04/03/2018 12:01 PM RESIDUE FURNACE OPERATOR XR CHEST PA LATERAL 2 VIEWS HISTORY: [...] encounter Visit Diagnoses Diagnosis Chest pain, unspecified type documented in this encounter Care Teams Electronic Heat Seal Operator Relationship Specialty Start Date End Date Prince Bello MD [address] [place] [address] PCP - General 07/18/16 documented as of this encounter
--- OUTSIDE RECORDS SUMMARY | 2024-04-16 14:13 | XMS_ITS | Encounter Summary ---
Author Organization [facility] Healthcare Address [address] [place] [address] Care Team Providers Care Sheet Metal Layout Mechanic Name Role Phone Prince Bello MD Primary Care Provider [phone] [phone] Encounter Details Date Type Department Care Team (Late st Contact Info) Description 05/09/2014 1:38 PM CEMENTER MACHINE - 05/09/2014 11:59 PM CEMENTER MACHINE Hospital Encounter [facility] Prince Gonzalez MD [address] [place] [address] [place] [phone] [address] Chest pain Social History Tobacco Use Types Packs/Day Years Used Date Smoking Tobacco: Former Cigarettes Q uit: 04/20/2012 Comments:Smoking History Pac ks/day: 1 Packs Alcohol Use Standard Drinks/Week Comments Yes 0 (1 standard drink = 0.6 oz pur e alcohol) Sex and Gender Information Value Date Recorded Sex Assigned at Not on file Legal Sex Male 1:49 PM CEMENTER MACHINE Gender Identity Not on file Sexual Orientation [...] XR CHEST PA LATERAL 2 VIEWS Routine 05/09/2014 2:06 PM CEMENTER MACHINE documented in this encounter Results * XR Chest Pa Lateral 2 Vw (05/09/2014 2:06 PM CEMENTER MACHINE) Anatomical Region Laterality Modality Body, Chest N/A Radiographic Martha ging 05/09/2014 2:06 PM CEMENTER MACHINE Narrative 05/10/2014 8:03 AM CEMENTER MACHINE CC: ??DR Adriana BELLO XR Chest 2 Views ?[id number] ??Acc#: ??[id number] DATE OF EXAM: ??May 09 2014 CLINICAL HISTORY: Chest pain since Thursday. RESULT: PA and lateral views of the chest were obtained and are compared with the prior study from 10/20/10. ?? The heart is normal in size. ??No consolidative lung opacity, pneumothorax or pleural effusion is seen. ??The osseous structures are appropriate for the patient's age. IMPRESSION: 1. NO ACUTE CARDIOPULMONARY PROCESS. Interpreting Physician: ??JOAN TINAJERO M.D. ??Read on: ??May 09 2014 2:07P Transcribed by: ??[facility] ??On: May 09 2014 ??4:16P Approved Electronically by: ??JOAN TINAJERO M.D. ??on: ??May 10 2014 8:03A Attending: ??MIKAYLA SANCHEZ Requesting: ??MIKAYLA SANCHEZ Requesting Fax: ??-- Attending Fax: ??-- Attending ID: ?? Requesting ID: ?? Report To 1 ID: ??[id number] Report To 1 Name: ??MIKAYLA SANCHEZ Report To 1 FAX: ??-- NextGen Order #: Procedure Note Provider, MD Edilberto - 08/20/2016 CC: DR Adriana BELLO XR Chest 2 Views [id number] Acc#: [id number] DATE OF EXAM: May 09 2014 CLINICAL HISTORY: Chest pain since Thursday. RESULT: PA and lateral views of the chest were obtained and are compared with theprior study from 10/20/10. The heart is normal in size. No consolidativelung opacity, pneumothorax or pleural effusion is seen. The osseousstructures are appropriate for the patient's age. IMPRESSION: 1. NO ACUTE CARDIOPULMONARY PROCESS. Interpreting Physician: JOAN TINAJERO M.D. Read on: May 09 20142:07P Transcribed by: rolf On: May 09 2014 4:16P Approved Electronically by: JOAN TINAJERO M.D. on: May 10 20148:03A Attending: MIKAYLA SANCHEZ Requesting: MIKAYLA SANCHEZ Requesting Fax: -- Attending Fax: -- Attending ID: Requesting ID: Report To 1 ID: [id number] Report To 1 Name: MIKAYLA SANCHEZ Report To 1 FAX: -- NextGen Order #: Historical Provider MD DRAKE XR PROCEDURES Final R esult documented in this encounter Visit Diagnoses Diagnosis Chest pain Unspecified chest pain documented in this encounter Care Teams Sheet Metal Layout Mechanic Relationship Specialty Start Date End Date Prince Bello MD [address] [place] [address] PCP - General 05/28/11 07/17/16 documented as of this encounter
--- OUTSIDE RECORDS SUMMARY | 2024-04-16 14:13 | XMS_ITS | Encounter Summary ---
Author Organization [facility] Healthcare Address [address] [place] [address] Care Team Providers Care Electrician Telephone Name Role Phone Prince Bello MD Primary Care Provider [phone] [phone] Encounter Details Date Type Department Care Team (Latest Contact Info) Description 06/13/2019 9:11 AM ASSURANCE MANAGER - 06/13/2019 11:59 PM ASSURANCE MANAGER Hospital Encounter [facility] [address] [facility] [address] [place] [address] Prince Bello MD [address] [place], [place] [address] [address] Lipid screening Discharge Disposition: Discharge to home [...] on file Legal Sex Male 1:49 PM ASSURANCE MANAGER Gender Identity Not on file Sexual [...] Priority Date/Time Associated Diagnosis Comments EGFR Routine 06/13/2019 9:11 AM ASSURANCE MANAGER Lipid screening LIPID PANEL Routine 06/13/2019 9:11 AM ASSURANCE MANAGER Lipid screening COMPREHENSIVE METABOLIC PANEL Routine 06/13/2019 9:11 AM ASSURANCE MANAGER Lipid screening documented in this encounter Results * eGFR (06/13/2019 9:11 AM ASSURANCE MANAGER) Pathologist [facility] eGFR 95 mL/min/1.7 3 m2 MONICA MENENDEZ Comment: Interpretive Data Reference Interval Normal ?>/= 90 mL/min/1.73m2 Mildly decreased* ? 60 - 89 mL/min/1.73m2 Mildly to moderately decreased ?45 - 59 mL/min/1.73m2 Moderately to severely decreased ??30 - 44 mL/min/1.73m2 Severely decreased ?15 - 29 mL/min/1.73m2 Kidney Failure ?< 15 ??mL/min/1.73m2 *Relative to young adult level If -Maldivian multiply value by 1.16. Estimated glomerular filtration [...] was last reviewed 2015. Blood specimen (specimen) 06/13/2019 9:11 AM ASSURANCE MANAGER 06/13/2019 12:37 PM ASSURANCE MANAGER Prince Bello MD LAB BLOOD ORDERABLES Chanell bermudez Result [facility] [address] Department [place] [address] * (ABNORMAL) Comprehensive metabolic panel (06/13/2019 9:11 AM ASSURANCE MANAGER) Sodium 140 135 - 145 mmol/L [...] CH Blood specimen (specimen) 06/13/2019 9:11 AM ASSURANCE MANAGER 06/13/2019 12:31 PM ASSURANCE MANAGER Prince Bello MD LAB BLOOD ORDERABLES Chanell aidan Result [facility] [address] Department [place] [address] * (ABNORMAL) Lipid panel (06/13/2019 9:11 AM ASSURANCE MANAGER) [facility] Cholesterol 204(H) 30 - 199 mg/dL MONICA [...] on 2017. Triglycerides 113 <=149 mg/dL MONICA MENENDEZ Comment: Interpretive Data [...] on 2017. HDL 44 >=40 mg/dL MONICA MENENDEZ Comment: Interpretive Data [...] 2017. LDL, calculated 137(H) <=129 mg/dL MONICA MENENDEZ Comment: Interpretive Data [...] revised on 2017. Chol/HDL ratio 5 MONICA MENENDEZ Blood specimen (specimen) 06/13/2019 9:11 AM ASSURANCE MANAGER 06/13/2019 12:31 PM ASSURANCE MANAGER us Prince Bello MD LAB BLOOD ORDERABLES Chanell l Result [facility] [id number] Department [place] [address] documented in this encounter Visit Diagnoses Diagnosis Lipid screening Screening for lipoid disorders documented in this encounter Care Teams Electrician Telephone Relationship Specialty Start Date End Date [place] [address] PCP - General 07/18/16 documented as of this encounter
--- OUTSIDE RECORDS SUMMARY | 2024-04-16 14:14 | XMS_ITS | Encounter Summary ---
Author Organization [facility] Healthcare Address [address] [place] [address] Care Team Providers Care Leadership Recruiter Name Role Phone Prince Bello MD Primary Care Provider [phone] [phone] Encounter Details Date Type Department Care Team (Late st Contact Info) Description 09/17/2008 9:03 PM CDT - 09/17/2008 10:10 PM CDT Hospital Encounter [facility] Dionte Thrasher MD [address] [place] [id number] Cellulitis and abscess of upper arm and forearm Social History Tobacco Use Types Packs/Day Years Used Date Smoking Tobacco: Never Assessed Sex and Gender Information Value Date Recorded Sex Assigned at Not on file 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
--- OUTSIDE RECORDS SUMMARY | 2024-04-16 14:14 | XMS_ITS | Encounter Summary ---
Author Organization [facility] Healthcare Address [address] [place] [address] Care Team Providers Care Sap Payroll Consultant Name Role Phone Prince Bello MD Primary Care Provider [phone] [phone] Encounter Details Date Type Department Care Team (Late st Contact Info) Description 08/28/2008 9:46 PM CDT - 08/29/2008 12:50 AM CDT Hospital Encounter [facility] Jorge Juan MD [address] [place] [address] Contusion of elbow; Other accident caused by striking against or being struck accidentally by objects or persons with or without subsequent fall; Place of occurrence, home; Tobacco use disorder Social History Tobacco Use Types Packs/Day Years Used Date Smoking Tobacco: Never Assessed Sex and Gender Information Value Date Recorded Sex Assigned at Not on file 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
--- OUTSIDE RECORDS SUMMARY | 2024-04-16 14:14 | XMS_ITS | Encounter Summary ---
Author Organization [facility] Healthcare Address [address] [place] [address] Care Team Providers Care C D Area Supervisor Name Role Phone Isi Bello MD Primary Care Provider [phone] [phone] Encounter Details Date Type Department Care Team (Late st Contact Info) Description 08/04/2013 5:44 PM CDT - 08/04/2013 10:30 PM CDT Hospital Encounter [facility] Walter Montnaez MD [address] [place] [address] Primary spontaneous pneumothorax; Chest pain; Tobacco use disorder Social History Tobacco Use Types Packs/Day Years Used Date Smoking Tobacco: Former Cigarettes Q uit: 04/20/2012 Comments:Smoking History Pac ks/day: 1 Packs Alcohol Use Standard Drinks/Week Comments Yes 0 (1 standard drink = 0.6 oz pur e alcohol) Sex and Gender Information Value Date Recorded Sex Assigned at Not on file 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 Gender Identity Not on file Sexual [...] Priority Date/Time Associated Diagnosis Comments XR CHEST PORTABLE Routine 08/04/2013 6:4 2 PM CDT SERUM MAGNESIUM Routine 08/04/2013 6:20 PM CDT SERUM COMPREHENSIVE METABOLIC PANEL Routine 08/04/2013 6:20 PM CDT PLASMA PROTHROMBIN TIME (PT) Routine 08/04/2013 6:20 PM CDT PLASMA PARTIAL THROMBOPLASTIN TIME (PTT) Routine 08/04/2013 6:20 PM CDT BLOOD WBC CELL MORPHOLOGIC EXAM, AUTO Routine 08/04/2013 6:20 PM CDT BLOOD CELL COUNT (CBC) Routine 4 6:20 PM CDT SERUM TROPONIN I Routine 08/04/2013 1:20 PM CDT BLOOD B-TYPE NATRIURETIC PEPTIDE (BNP) Routine 08/04/2013 1:20 PM CDT ELECTROCARDIOGRAPHY (ECG) 08/04/2013 DISCHARGE LABORATORY CUMULATIVE REPORT Routine 08/04/2013 12:00 AM CDT documented in this encounter Results * XR Chest Portable (08/04/2013 6:42 PM CDT) Anatomical Region Laterality Modality Body N/A Radiographic Martha ging 08/04/2013 6:42 PM CDT Narrative 08/09/2013 6:56 AM CDT XR Chest Portable ? [id number] ??Acc#: ??[id number] DATE OF EXAM: ??Aug 04 2013 CLINICAL HISTORY: Chest pain. RESULT: Portable one view chest from 08/04/13 at 1840 hours demonstrates a moderate right pneumothorax. ??The right pulmonary apex is approximately 5cm inferior to the pleural apex. ??There is no evidence of mediastinal shift. No focal lung infiltrates are present. IMPRESSION: 1. MODERATE RIGHT PNEUMOTHORAX. 2. NO FOCAL LUNG INFILTRATES. Interpreting Physician: ??DR JACQUE SHERWOOD M.D. ??Read on: ??Aug 05 2013 7:49A Transcribed by: ??mb ?? On: Aug 05 2013 10:09A Approved Electronically by: ??KEALA Gallegos, DR SANTILLAN ??on: ??Aug 09 2013 6:56A Ordering DR: Attending DR: DR ISI BELLO Procedure Note Provider, MD Edilberto - 08/20/2016 XR Chest Portable [id number] Acc#: [id number] DATE OF EXAM: Aug 04 2013 CLINICAL HISTORY: Chest pain. RESULT: Portable one view chest from 08/04/13 at 1840 hours demonstrates amoderate right pneumothorax. The right pulmonary apex is [id number] inferior to the pleural apex. There is no evidence of mediastinalshift. No focal lung infiltrates are present. IMPRESSION: 1. MODERATE RIGHT PNEUMOTHORAX. 2. NO FOCAL LUNG INFILTRATES. Interpreting Physician: DR JACQUE SHERWOOD M.D. Read on: Aug 05 [id number] Transcribed by: shanel On: Aug 05 2013 10:09A Approved Electronically by: KAELA Gallegos, DR SANTILLAN on: Aug 09 20136:[id number] Ordering DR: Attending DR: DR ISI BELLO us Historical Provider IMG XR PROCEDURES Final R esult * Plasma partial thromboplastin time (PTT) (08/04/2013 6:20 PM CDT) APTT 30.3 -<35. seconds HISTOR ICAL RESULTS Plasma 08/04/2013 6:20 PM CDT us Marcie Hastings MD LAB BLOOD ORDERABLES Final Resu lt HISTORICAL RESULTS * Plasma prothrombin time (PT) (08/04/2013 6:20 PM CDT) Prothrombin time (PT) 12.8 11.1 - 14.4 seconds HISTORICAL RESULTS INR 1.00 HISTORICAL RESULTS Comment: RECOMMENDED RANGES FOR PROTIME INR: NOTE: THE INR HAS BEEN VALIDATED ONLY FOR PATIENTS ON STABLE ORAL ?ANTICOAGULANT THERAPY. ?2.0 - 3.0 ??PROPHYLAXIS OF VENOUS THROMBOSIS (HIGH RISK SURGERY) ?2.0 - 3.0 ??TREATMENT OF VENOUS THROMBOSIS ?2.0 - 3.0 ??TREATMENT OF PULMONARY EMBOLISM ?2.0 - 3.0 ??PREVENTION OF SYSTEMIC EMBOLISM ? TISSUE HEART VALVES ? AMI (TO PREVENT SYSTEMIC EMBOLISM)* ? VALVULAR HEART DISEASE ? ATRIAL FIBRILLATION ?2.5 - 3.5 ??MECHANICAL PROSTHETIC VALVES (HIGH RISK) ?2.0 - 3.0 ??BILEAFLET MECHANICAL VALVE IN AORTIC POSITION *If oral anticoagulant therapy is elected to prevent recurrent myocardial infarction, an INR of 2.5 to 3.5 is recommended, consistent with Food and Drug Administration recommendations. Plasma 08/04/2013 6:20 PM CDT Marcie Hastings MD LAB BLOOD ORDERABLES Final Resu lt Performing Organization Address City/[facility] Co de Phone Number HISTORICAL RESULTS * Serum magnesium (08/04/2013 6:20 PM CDT) Pathologist [facility] Magnesium 2.0 1.5 - 2.2 mg/dl HISTORICAL RESULTS Serum 08/04/2013 6:20 PM CDT Marcie Hastings MD LAB BLOOD ORDERABLES Final Resu lt HISTORICAL RESULTS * (ABNORMAL) Blood cell count (CBC) (08/04/2013 6:20 PM CDT) WBC 9.6 4.0 - 10.5 K/cumm HISTORICAL RESULTS RBC 4.21(L) 4.60 - 6.20 M/cumm HISTORICAL RESULTS Hgb 13.7(L) 14.0 - 18.0 g/dl HISTORICAL RESULTS Hct 38.7(L) 40.0 - 54.0 % HISTORICAL RESULTS MCV 91.9 77.0 - 97.0 fl HISTORICAL RESULTS MCH 32.5 23.0 - 34.0 pg HISTORICAL RESULTS MCHC 35.4 32.0 - 36.0 g/dl HISTORICAL RESULTS Rdw 12.4 11.5 - 14.5 % HISTORICAL RESULTS Platelets 372 150 - 450 K/cumm HISTORICAL RESULTS MPV 9.2 7.4 - 10.4 fl HISTORICAL RESULTS Blood specimen (specimen) 08/04/2013 6:20 PM CDT us Marcie Hastings MD LAB BLOOD ORDERABLES Final Resu lt HISTORICAL RESULTS * (ABNORMAL) Blood WBC cell morphologic exam, auto (08/04/2013 6:20 PM CDT) Lymphocytes 41.5(H) 25.0 - 33.0 % HISTORICAL RESULTS Monos 7.9 1.0 - 13.0 % HISTORICAL RESULTS Neutrophils 48.1(L) 53.0 - 69.0 % HISTORICAL RESULTS Eosinophils 1.8 0.0 - 10.0 % HISTORICAL RESULTS Basophils 0.6 0.0 - 1.0 % HISTORICAL RESULTS Immature granulocytes 0.1 0.0 - 1.0 % HISTORICAL RESULTS Lymphocytes, abs 4.0(H) 1.2 - 3.4 K/cumm HISTORICAL RESULTS Monocytes, absolute 0.8(L) 1.1 - 1.9 K/cumm HISTORICAL RESULTS Neutrophils, abs 4.6 1.4 - 6.5 K/cumm HISTORICAL RESULTS Eosinophils, abs 0.2 0.0 - 0.7 cells/cum m HISTORICAL RESULTS Basophils, abs 0.1 0.0 - 0.2 K/cumm HISTORICAL RESULTS Immature granulocyte, abs 0.0 0.0 - 0.0 K/cumm HISTORICAL RESULTS Blood specimen (specimen) 08/04/2013 6:20 PM CDT us Marcie Hastings MD LAB BLOOD ORDERABLES Final Resu lt HISTORICAL RESULTS * (ABNORMAL) Serum comprehensive metabolic panel (08/04/2013 6:20 PM CDT) BUN 14.0 6.0 - 23.0 mg/dl HISTORICAL RESULTS Potassium, sr 3.7 3.4 - 5.0 mmol/L HISTORICAL RESULTS Sodium 137 134 - 143 mmol/L HISTORICAL RESULTS Chloride 102 99 - 108 mmol/L HISTORICAL RESULTS CO2 24 23 - 32 mmol/L HISTORICAL RESULTS Glucose 94 70 - 199 mg/dl HISTORICAL RESULTS Comment: Note:The glucose is assumed non fasting Fastin-99 mg/dl Random: 70-199 mg/dl Either a fasting glucose > 126 mg/dL or a random glucose > 200 mg/dL plus symptoms is diagnostic of diabetes when confirmed on another day. Fasting values > 100 mg/dl but < 125 mg/dL are diagnostic of impaired fasting glucose. New reference ranges implemented 02/28/2013. Creatinine 1.07 0.60 - 1.30 mg/dl HISTORICAL RESULTS Comment: eGFR: >70 ml/min/1.73sq.m if non -Jordanian. eGFR: >70 ml/min/1.73sq.m if -Jordanian. AVE GFR for 40-49 yr. age group: ??99 ml/min/1.73sq.m Calculated using MDRD Equation BUN/creat ratio 13 10 - 20 HIST ORICAL RESULTS A. gap 15(H) 7 - 14 mmol/L HISTORICAL RESULTS Protein, sr 8.3(H) 6.4 - 8.0 g/dl HISTORICAL RESULTS Alb 4.9(H) 3.3 - 4.5 g/dl HISTORICAL RESULTS Alb/glob ratio 1.4 1.1 - 1.8 HISTO RICAL RESULTS Calcium 9.3 8.6 - 9.8 mg/dl HISTORICAL RESULTS Bilirubin 0.4 0.0 - 1.1 mg/dl HISTORICAL RESULTS Alk phos 71 44 - 125 Units/L HISTORICAL RESULTS AST 14 10 - 45 Units/L HISTORICAL RESULTS Comment:AST - NOTE REFERENCE RANGE CHANGE ALT 25 15 - 70 Units/L HISTORICAL RESULTS Serum 08/04/2013 6:20 PM CDT us Marcie Hastings MD LAB BLOOD ORDERABLES Final Resu lt HISTORICAL RESULTS * Blood B-type natriuretic peptide (BNP) (08/04/2013 1:20 PM CDT) BNP 14 -<100 pg/ml HISTORIC AL RESULTS Blood specimen (specimen) 08/04/2013 1:20 PM CDT Narrative HISTORICAL RESULTS - 08/04/2013 2:27 PM CDT BNP REFERENCE RANGE <100 pg/ml Marcie Hastings MD LAB BLOOD ORDERABLES Final Resu lt Performing Organization Address City/[facility] de Phone Number HISTORICAL RESULTS * Serum troponin I (08/04/2013 1:20 PM CDT) Troponin I 0.08 0.00 - 0.10 ng/ml HISTORICAL RESULTS Serum 08/04/2013 1:20 PM CDT Narrative HISTORICAL RESULTS - 08/04/2013 2:12 PM CDT NEGATIVE: ??0.00 - 0.10 NG/ML INDETERMINATE: ??0.11 - 0.50 NG/ML POSITIVE: ??GREATER THAN 0.50 NG/ML Marcie Hastings MD LAB BLOOD ORDERABLES Final Resu lt Performing Organization Address City/[facility] de Phone Number HISTORICAL RESULTS * Discharge Laboratory Cumulative Report (08/04/2013 12:00 AM CDT) 08/04/2013 Narrative HISTORICAL RESULTS - 08/05/2013 12:35 AM CDT Patient No: [id number] ? [facility] Patient Name: SALVATORE QUEEN ? [facility] Age: 43 YRS ?: 1970 ?Sex:M ?[address] )[id number] ?? Adm Dt: 08/04/2013 ?[place], [place] ??[address] Created: 08/05/2013 ??0035 ?? Pt. Type: E ? Discharge Dt: 08/04/2013 ? Pathologists: Rosalba Mcgill MD Admit Attend Dr: WALTER BABCOCK MD ? BLOOD CELL COUNTS ?Collection Date: ?08/04/13 ?Collection Time: ?1820 ? Ref Range: ?? Units: [4.00-10.50] /CMM ? WBC X 10^3 ?9.58 [4.60-6.20] ??/CMM ? RBC X 10^6 ?4.21 L [14.0-18.0] ??G/DL ? HGB ? 13.7 L [40.0-54.0] ??% ?HCT ? 38.7 L [77.0-97.0] ??FL ? MCV ? 91.9 [23.0-34.0] ??PG ? MCH ? 32.5 [32.0-36.0] ??% ?MCHC ?35.4 [11.5-14.5] ??% ?RDW ? 12.4 [150-450] ?? /CMM ? PLT X 10^3 ? 372 ?BLOOD CELL DIFFERENTIAL ?Collection Date: ?08/04/13 ?Collection Time: ?1820 ? Ref Range: ?? Units: [53.0-69.0] ??% ?NEUTROPHILS ? 48.1 L [25.0-33.0] ??% ?LYMPHOCYTES ? 41.5 H [1.0-13.0] ??% ?MONOCYTES ?7.9 [0.0-10.0] ??% ?EOSINOPHILS ?1.8 [0.0-1.0] ?? % ?BASOPHILS ?0.6 ? /CMM ? A LYMPHOCYTE ? 4.0 H [0.0-1.0] ?? % ?IMM GRAN % ? 0.1 [0.00-0.02] ??/CMM ? A IMM GRAN ?0.01 [1.1-1.9] ?? /CMM ? A MONOCYTE ? 0.8 L [1.4-6.5] ?? /CMM ? A NEUTROPHIL ? 4.6 [0.0-0.7] ?? /CMM ? A EOSINOPHIL ? 0.2 [0.0-0.2] ?? /CMM ? A BASOPHIL ? 0.1 Footnotes and Symbols: L = Low, H = High ?? CONTINUED ?Page: ?? 1 Patient No: [id number] ? [facility] Patient Name: SALVATORE QUEEN ? [facility] Age: 43 YRS ?: 1970 ?Sex:M ?[address] )[id number] ?? Adm Dt: 08/04/2013 ?[place] ??[address] Created: 08/05/2013 ??0035 ?? Pt. Type: E ? Discharge Dt: 08/04/2013 ? Pathologists: Rosalba Mcgill MD Admit Attend Dr: WALTER BABCOCK MD ? GENERAL CHEMISTRY ?Collection Date: ?08/04/13 ?Collection Time: ?1820 ? Ref Range: ?? Units: [< ?100] ?? pg/ml ?BNP ? 14 f [134-143] ?? MMOL/L ? SODIUM ? 137 [3.4-5.0] ?? MMOL/L ? POTASSIUM ?3.7 [99.0-108.0] MMOL/L ? CHLORIDE ? 102.0 [23.0-32.0] ??MMOL/L ? TOTAL CO2 ? 23.6 ?? [7-14] ?MMOL/L ? ANION GAP ? 15 H ??[70-199] ?? MG/DL ?GLUCOSE ? 94 f [6.4-8.0] ?? G/DL ? TOTAL PROTEIN ?8.3 H [3.3-4.5] ?? G/DL ? ALBUMIN ?4.9 H [1.1-1.8] ?A/G RATIO ?1.4 [8.6-9.8] ?? MG/DL ?CALCIUM ?9.3 [0.0-1.1] ?? MG/DL ?BILI TOTAL ? 0.4 ??[44-125] ?? U/L ?ALK PHOS ?71 ??[10-45] ?U/L ?AST(SGOT) ? 14 f ??[15-70] ?U/L ?ALT(SGPT) ? 25 f [6.0-23.0] ??MG/DL ?BUN ? 14.0 ??[10-20] ? B/C RATIO ? 13 Footnotes and Symbols: H = High, f = Footnote BNP (01/28/08 -- Current) BNP REFERENCE RANGE <100 pg/ml GLUCOSE (03/22/13 -- Current) Note:The glucose is assumed non fasting Fastin-99 mg/dl Random: 70-199 mg/dl Either a fasting glucose > 126 mg/dL or a random glucose > 200 mg/dL plus symptoms is diagnostic of diabetes when confirmed on another day. Fasting values > 100 mg/dl but < 125 mg/dL are diagnostic of impaired fasting glucose. New reference ranges implemented 02/28/2013. AST(SGOT) (09/29/12 -- Current) AST ??- NOTE REFERENCE RANGE CHANGE ALT(SGPT) (11/09/12 -- Current) ?? CONTINUED ?Page: ?? 2 Patient No: [id number] ? [facility] Patient Name: SALVATORE QUEEN ? [facility] Age: 43 YRS ?: 1970 ?Sex:M ?[address] )[id number] ?? Adm Dt: 08/04/2013 ?[place], [place] ??[address] Created: 08/05/2013 ??0035 ?? Pt. Type: E ? Discharge Dt: 08/04/2013 ? Pathologists: Rosalba Mcgill MD Admit Dr. Shook Dr: WALTER BABCOCK MD ? GENERAL CHEMISTRY ?Collection Date: ?08/04/13 ?Collection Time: ?1820 ? Ref Range: ?? Units: [0.60-1.30] ??MG/DL ?CREATININE ?1.07 f ?08/04/13 1820 eGFR: >70 ml/min/1.73sq.m if non -Jordanian. eGFR: >70 ml/min/1.73sq.m if -Jordanian. AVE GFR for 40-49 yr. age group: ??99 ml/min/1.73sq.m Calculated using MDRD Equation FOOTNOTE ADDED ON ?? 08/04/13 ?? AT 1912 BY 999 [1.5-2.2] ?? MG/DL ?MAGNESIUM ?2.0 ? CARDIAC CHEMISTRY ?Collection Date: ?08/04/13 ?Collection Time: ?1820 ? Ref Range: ?? Units: [0.00-0.10] ??NG/ML ?TROPONIN I ?0.08 f Footnotes and Symbols: f = Footnote TROPONIN I (02/13/11 -- Current) NEGATIVE: ??0.00 - 0.10 NG/ML INDETERMINATE: ??0.11 - 0.50 NG/ML POSITIVE: ??GREATER THAN 0.50 NG/ML ?? CONTINUED ?Page: ?? 3 Patient No: [id number] ? [facility] Patient Name: SALVATORE QUEEN ? [facility] Age: 43 YRS ?: 1970 ?Sex:M ?[address] )[id number] ?? Adm Dt: 08/04/2013 ?[place], [place] ??[address] Created: 08/05/2013 ??0035 ?? Pt. Type: E ? Discharge Dt: 08/04/2013 ? Pathologists: Rosalba Mcgill MD Admit Attend Dr: WALTER BABCOCK MD ?COAGULATION ? Units: ?? PROTIME ?INR ?APTT PAT ? Low: ??[11.1-14.4] ? [< ?? 35.4] ? Ref Range: ? SECS ?SECS ? 08/04/13 1820 ?12.8 ? 1.00 f ? 30.3 Footnotes and Symbols: f = Footnote INR (11/07/99 -- Current) RECOMMENDED RANGES FOR PROTIME INR: NOTE: THE INR HAS BEEN VALIDATED ONLY FOR PATIENTS ON STABLE ORAL ?ANTICOAGULANT THERAPY. ?2.0 - 3.0 ??PROPHYLAXIS OF VENOUS THROMBOSIS (HIGH RISK SURGERY) ?2.0 - 3.0 ??TREATMENT OF VENOUS THROMBOSIS ?2.0 - 3.0 ??TREATMENT OF PULMONARY EMBOLISM ?2.0 - 3.0 ??PREVENTION OF SYSTEMIC EMBOLISM ? TISSUE HEART VALVES ? AMI (TO PREVENT SYSTEMIC EMBOLISM)* ? VALVULAR HEART DISEASE ? ATRIAL FIBRILLATION ?2.5 - 3.5 ??MECHANICAL PROSTHETIC VALVES (HIGH RISK) ?2.0 - 3.0 ??BILEAFLET MECHANICAL VALVE IN AORTIC POSITION *If oral anticoagulant therapy is elected to prevent recurrent myocardial infarction, an INR of 2.5 to 3.5 is recommended, consistent with Food and Drug Administration recommendations. ?? END OF CHART ? Page: ?? 4 us Historical Provider LAB BLOOD ORDERABLES Chanell l Result HISTORICAL RESULTS * ELECTROCARDIOGRAPHY (ECG) (08/04/2013) Narrative 08/04/2013 Ordered by an unspecified provider. Historical Provider ECG ORDERABLES Final Res ult documented in this encounter Visit Diagnoses Diagnosis Primary spontaneous pneumothorax Chest pain Unspecified chest pain Tobacco use disorder documented in this encounter Care Teams C D Area Supervisor Relationship Specialty Start Date End Date Isi Bello MD [address] [place] [address] PCP - General 05/28/11 07/17/16 documented as of this encounter
--- OUTSIDE RECORDS SUMMARY | 2024-04-16 14:14 | XMS_ITS | Encounter Summary ---
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
--- OUTSIDE RECORDS SUMMARY | 2024-04-16 14:14 | XMS_ITS | Encounter Summary ---
Author Organization [facility] Healthcare Address [address] [place] [address] Care Team Providers Care Arborist Name Role Phone Prince Bello MD Primary Care Provider [phone] Encounter Details Date Type Department Care Team (Late st Contact Info) Description 10/20/2010 8:40 AM CDT - 10/20/2010 9:37 AM CDT Hospital Encounter [facility] Ramesh Bess MD [address] [place] [address] Prince Bello MD [address] [place] [address] Acute bronchitis; Acute upper respiratory infection Social History Tobacco Use Types Packs/Day Years Used Date Smoking Tobacco: Never Assessed Sex and Gender Information Value Date Recorded Sex Assigned at Not on file 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
--- OUTSIDE RECORDS SUMMARY | 2024-04-16 14:14 | XMS_ITS | Encounter Summary ---
Author Organization [facility] Facility Care Team Providers Care Pad Machine Offbearer Name Role Phone Prince Bello MD Primary Care Provider [phone] Encounter Details Date Type Department Care Team (Late st Contact Info) Description 08/05/2013 2:24 AM CDT - 08/07/2013 6:19 PM CDT Hospital Encounter [facility] Evans Saeed MD [facility] [address] [place] [address] Other pneumothorax; Tobacco use disorder; Esophageal reflux Social History Tobacco Use Types Packs/Day Years Used Date Smoking Tobacco: Former Cigarettes Q uit: 04/20/2012 Comments:Smoking History Pac ks/day: 1 Packs Alcohol Use Standard Drinks/Week Comments Yes 0 (1 standard drink = 0.6 oz pur e alcohol) Sex and Gender Information Value Date Recorded Sex Assigned at Not on file Legal Sex Male 1:49 PM [employer] Gender Identity Not on file Sexual Orientation Not on file documented as of this encounter Last Filed Vital Signs Vital Sign Reading Time Taken Comments Blood Pressure 109/53 08/07/2013 1:02 PM CDT Pulse 60 08/07/2013 1:02 PM CDT Temperature - - Respiratory Rate - - Oxygen Saturation 100% 08/07/2013 1:02 PM CDT Inhaled Oxygen Concentration - - Weight 77.1 kg (170 lb) 08/05/2013 5:39 AM CDT Height 177.8 cm (5' 10 ) 08/05/2013 5:39 AM CDT Body Mass Index 24.39 08/05/2013 5:39 AM CDT documented in this encounter Medications at Time of Discharge ibuprofen (ADVIL,MOTRIN) 600 mg tablet take 1 tablet by oral route up to 3 times every day with food 90 3 04/21/2013 01/20/2018 documented as of this encounter Miscellaneous Notes * Op Note - Provider, MD Edilberto - 08/05/2013 12:00 AM CDT Patient: Salvatore Tinajero Reg No: [id number] [facility] #: [id number] Admit Dt.: 08/05/2013 : 1970 Pt Type: 100 Room No: [id number] Attending: Evans Nobles M.D. Surgeon: Evans Nobles M.D. Dictating: Evans Nobles M.D. Service Dt: 08/05/2013 OPERATIVE REPORT ANESTHESIA: Local anesthetic. PREOPERATIVE DIAGNOSIS (ES): Right-sided pneumothorax. POSTOPERATIVE DIAGNOSIS (ES): Right-sided pneumothorax. NAME OF OPERATION: Placement of right-sided 24-Qatari thoracostomy tube. INDICATIONS FOR PROCEDURE: This is a smoker, who developed a spontaneous pneumothorax with some shortness of breath and dizziness as well as pleuritic chest pain. It was approximately a 20-25% pneumothorax. The risks and benefits of a thoracostomy tube were explained to the patient and he agreed to proceed. OPERATIVE FINDINGS: None. DESCRIPTION OF PROCEDURE: We began by prepping widely with ChloraPrep. We then prepped and draped him in a routine sterile manner. A nerve block was performed to the two ribs space above and two rib spaces below as well as the 5th intercostal rib space where the chest tube was to be inserted. After the rib block was performed with lidocaine 1%, we began with a 2 centimeter incision at the level of the 5th rib space. We dissected down through the skin and subcutaneous tissue bluntly and entered into the chest just above the 5th rib. A cueto of air was noted. We then placed a 24-Qatari chest tube without difficulty, sutured this into place with #1 silk suture. SPECIMENS REMOVED: None. ESTIMATED BLOOD LOSS: Minimal. INTRAOPERATIVE FLUIDS: None. SPONGE/INSTRUMENT/NEEDLE COUNTS: Correct. CONDITION ON DISCHARGE FROM THE OPERATING ROOM: Stable. I was scrubbed and present for the entire procedure. Electronically Signed By Evans Nobles M.D. 09/02/2013 01:24 P Rosy Maria/cole #[id number] Editing MT: TD: 08/07/2013 05:50:00 cc: Evans Nobles M.D. documented in this encounter Plan of Treatment Not on file documented as of this encounter Procedures Procedure Name Priority Date/Time Associated Diagnosis Comments XR CHEST PA LATERAL 2 VIEWS Routine 08/07/2013 4:40 PM CDT XR CHEST 1 VIEW Routine 08/07/2013 4:59 AM CDT DISCHARGE LABORATORY CUMULATIVE REPORT Routine 08/07/2013 12:00 AM CDT SERUM MAGNESIUM Routine 08/06/2013 8:51 PM CDT PLASMA PHOSPHORUS Routine 08/06/2013 8:5 1 PM CDT PLASMA BASIC METABOLIC PANEL Routine 08/06/2013 8:51 PM CDT BLOOD CELL COUNT (CBC) Routine 08/06/2013 8:51 PM CDT XR CHEST PA LATERAL 2 VIEWS Routine 08/06/2013 1:26 PM CDT XR CHEST 1 VIEW Routine 08/06/2013 4:04 AM CDT XR CHEST PA LATERAL 2 VIEWS Routine 08/05/2013 10:26 AM CDT XR CHEST 1 VIEW Routine 08/05/2013 4:26 AM CDT PLASMA BASIC METABOLIC PANEL Routine 08/05/2013 3:39 AM CDT BLOOD CELL COUNT (CBC) Routine 08/05/2013 3:39 AM CDT XR CHEST 1 VIEW Routine 08/05/2013 12:52 AM CDT XR CHEST 1 VIEW Routine 08/04/2013 11:42 PM CDT documented in this encounter Results * XR Chest Pa Lateral 2 Views (08/07/2013 4:40 PM CDT) Anatomical Region Laterality Modality Body, Chest N/A Radiographic Martha ging 08/07/2013 4:40 PM CDT Narrative 08/08/2013 10:35 AM CDT SHAKA BRYANT M.D. JANNET BEARD M.D. FINAL REPORT The radiology attending physician has personally reviewed this study, and has reviewed and/or edited this written report and agrees with it. ACC# ??Date Time ??Exam [id number] Aug 07, 2013 16:40:00 [id number] Chest 2 views Front&Lat EXAMINATION: ?? Chest 2 views HISTORY: Spontaneous pneumothorax IMPRESSION: ?? Single frontal view the chest is compared with multiple prior radiographs, the most recent from earlier on 08/07/2013. There has been interval removal of a right-sided thoracostomy tube. A small right apical pneumothorax is unchanged in size given slight differences in projection. There is no left-sided pneumothorax. The lungs are clear. No pleural effusion. Heart size and mediastinal contours are unchanged. Requested By: LUKE BECKHAM M.D. Dictated By: ?? JANNET BEARD M.D. ??on Aug 07 2013 ??5:39P This document has been electronically signed by: SHAKA BRYANT M.D. on Aug 08 2013 10:35A Procedure Note Provider, MD Edilberto - 09/25/2016 Rosy KAHN M.D. FINAL REPORT The radiology attending physician has personally reviewed this study, and has reviewed and/or edited this written report and agrees with it. ACC# Date Time Exam [id number] Aug 07, 2013 16:40:00 [id number] Chest 2 views Front&Lat EXAMINATION: Chest 2 views HISTORY: Spontaneous pneumothorax IMPRESSION: Single frontal view the chest is compared with multiple prior radiographs, the most recent from earlier on 08/07/2013. There has been interval removal of a right-sided thoracostomy tube. A small right apical pneumothorax is unchanged in size given slight differences in projection. There is no left-sided pneumothorax. The lungs are clear. No pleural effusion. Heart size and mediastinal contours are unchanged. Requested By: LUKE BECKHAM M.D. Dictated By: JANNET BEARD M.D. on Aug 07 2013 5:39P This document has been electronically signed by: SHAKA BRYANT M.D. on Aug 08 2013 10:35A us Historical Provider IMFrancisco J XR PROCEDURES Final R esult * XR Chest 1 Vw (08/07/2013 4:59 AM CDT) Anatomical Region Laterality Modality Body, Chest N/A Radiographic Martha ging 08/07/2013 4:59 AM CDT Narrative 08/07/2013 7:48 AM CDT PATRICA WEBBER M.D. FINAL REPORT ACC# ??Date Time ??Exam [id number] Aug 07, 2013 04:59:00 02106 Chest 1 view Frontal [id number] Aug 06, 2013 13:26:00 95502 Chest 2 views Front&Lat EXAMINATION: ?? 2 views of the chest 08/06/2013 at 1316 FINDINGS: when compared to the prior study no change in a right chest tube but there has been slight increase in size of a right apical pneumothorax. The lungs are clear. No left pneumothorax. The heart size and mediastinal contour are unchanged. No pleural effusion. Exam: Single view chest 08/07/2013 at 445 IMPRESSION: ?? no change when compared to the prior study. Right apical pneumothorax and right chest tube unchanged. Requested By: LUKE BECKHAM M.D. Dictated By: ?? PATRICA WEBBER M.D. ??on Aug 07 2013 ??7:48A This document has been electronically signed by: PATRICA WEBBER M.D. on Aug 07 2013 ??7:48A Procedure Note Provider, Edilberto, - 08/20/2016 PATRICA WEBBER M.D. FINAL REPORT ACC# Date Time Exam [id number] Aug 07, 2013 04:59:00 [id number] Chest 1 view Frontal [id number] Aug 06, 2013 13:26:00 [id number] Chest 2 views Front&Lat EXAMINATION: 2 views of the chest 08/06/2013 at 1316 FINDINGS: when compared to the prior study no change in a right chest tube but there has been slight increase in size of a right apical pneumothorax. The lungs are clear. No left pneumothorax. The heart size and mediastinal contour are unchanged. No pleural effusion. Exam: Single view chest 08/07/2013 at 445 IMPRESSION: no change when compared to the prior study. Right apical pneumothorax and right chest tube unchanged. Requested By: LUKE BECKHAM M.D. Dictated By: PATRICA WEBBER M.D. on Aug 07 2013 7:48A This document has been electronically signed by: PATRICA WEBBER M.D. on Aug 07 2013 7:48A us Historical Provider IMG XR PROCEDURES Final R esult * Discharge Laboratory Cumulative Report (08/07/2013 12:00 AM CDT) 08/07/2013 Narrative HISTORICAL RESULTS - 08/07/2013 7:17 PM CDT ?[facility] ?Department of Laboratories ? [address] [facility] [address] ? [place] [address] Patient Name: ??SALVATORE TINAJERO [facility] Rec Number: [id number] Fin Number: ?[id number] Date: ?1970 Sex/Age: ? Male 43 years Admit Date: ?08/05/2013 Discharge Date: 08/07/2013 Doctor: ?Evans Nobles Facility: ?[facility] Location: ?0065 [id number] Chart Printed: 08/07/2013 19:17 ?? * Abnormal ?? C Critical ?? f Footnote ?? ^ Corrected ?? L Low ?? H High ? i Interp Data ?? @ Reference Lab ?Chart Type:Cumulative ? SELECTED ELECTROLYTES ?Test: Sodium ? Plasma Potassium ??Chloride ? Reference: [135-145] ??[3.3-4.9] ? [97-110] ? Units: mmol/L ? mmol/L ?mmol/L 08/06/2013 ?? 20:51:00 ?? 137 ?4.1 ? 103 08/05/2013 ?? 03:39:00 ?? 142 ?4.4 ? 111 ??H ?Test: Total CO2 ??Anion Gap ? Reference: [22-32] ?[0-16] ? Units: mmol/L ? mmol/L 08/06/2013 ?? 20:51:00 ?? 24 ? 10 08/05/2013 ?? 03:39:00 ?? 21 ??L ?10 ? STANDARD BLOOD CHEMISTRY ?Test: BUN ? Creatinine ?? Glucose ?? Magnesium ? Reference: [8-25] ??[0.70-1.30] ??[70-199] ??[1.4-2.5] ? Units: mg/dL ?? mg/dL ?mg/dL ? mg/dL 08/06/2013 ?? 20:51:00 ?? 14 ?1.05 ? 108 ? 2.0 08/05/2013 ?? 03:39:00 ?? 14 ?0.88 ? 88 ?Test: Total Calcium ??Plasma Phosphorus ? Reference: [8.6-10.3] ? [2.3-4.3] ? Units: mg/dL ?mg/dL 08/06/2013 ?? 20:51:00 ?? 9.2 ?4.1 08/05/2013 ?? 03:39:00 ?? 9.0 ? COMPLETE BLOOD COUNT ?Test: WBC ?RBC ?Hgb ? Reference: [3.8-9.8] ??[4.50-5.70] ??[13.8-17.2] ? Units: K/cumm ? M/cumm ? g/dL 08/06/2013 ?? 20:51:00 ?? 9.9 ??H ? 3.66 ??L ?11.9 ??L 08/05/2013 ?? 03:39:00 ?? 15.4 ??H ?3.96 ??L ?13.0 ??L ?Test: Hct ?Platelet Ct ??MCV ? Reference: [40.7-50.3] ??[140-440] ?[80.0-97.6] ? Units: % ?K/cumm ? fL 08/06/2013 ?? 20:51:00 ?? 34.6 ??L ?301 ?94.4 08/05/2013 ?? 03:39:00 ?? 37.0 ??L ?301 ?93.7 ?Test: MCH ?MCHC ? RDW ? Reference: [26.7-33.7] ??[32.7-35.5] ??[11.8-14.6] ? Units: pg ? g/dL ? % 08/06/2013 ?? 20:51:00 ?? 32.6 ? 34.5 ? 12.6 08/05/2013 ?? 03:39:00 ?? 33.0 ? 35.2 ? 13.1 ?Test: MPV ? Reference: [6.8-10.4] ? Units: fL 08/06/2013 ?? 20:51:00 ?? 8.0 08/05/2013 ?? 03:39:00 ?? 7.7 ? AUTOMATED WHITE CELL DIFFERENTIAL ?Test: Neut Pct Auto ??Lymph Pct Auto ??Kinney Pct Auto ? Reference: [38.7-74.5] ?[20.0-54.3] ? [4.3-13.5] ? Units: % ?% ? % 08/06/2013 ?? 20:51:00 ?? 54.3 ? 35.7 ?7.4 08/05/2013 ?? 03:39:00 ?? 71.2 ? 22.7 ?4.4 ?Test: Eos Pct Auto ??Baso Pct Auto ??Neut Abs Auto ? Reference: [0.0-6.0] ? [0.0-3.0] ?[1.8-6.6] ? Units: % ? % ?K/cumm 08/06/2013 ?? 20:51:00 ?? 2.1 ? 0.5 ?5.3 08/05/2013 ?? 03:39:00 ?? 1.5 ? 0.2 ?10.9 ??H ?Test: Lymph Abs Auto ??Kinney Abs Auto ??Eos Abs Auto ? Reference: [1.2-3.3] ? [0.2-1.2] ?[0.0-0.5] ? Units: K/cumm ?K/cumm ? K/cumm 08/06/2013 ?? 20:51:00 ?? 3.5 ??H ?0.7 ?0.2 08/05/2013 ?? 03:39:00 ?? 3.5 ??H ?0.7 ?0.2 ?Test: Baso Abs Auto ? Reference: [0.0-0.2] ? Units: K/cumm 08/06/2013 ?? 20:51:00 ?? 0.0 08/05/2013 ?? 03:39:00 ?? 0.0 ? CANCELLED TESTS Date ?Time ?Test ?Cancel Reason 08/07/2013 ??00:38:00 ??Basic Met Plas 08/07/2013 ??00:38:00 ??CBC us Historical Provider MD LAB BLOOD ORDERABLES Chanell l Result Performing Organization Address City/[facility]/ZIP Co de Phone Number HISTORICAL RESULTS * Plasma basic metabolic panel (08/06/2013 8:51 PM CDT) Sodium 137 135 - 145 mmol/L HISTORICAL RESULTS K, pl 4.1 3.3 - 4.9 mmol/L HISTORICAL RESULTS Chloride 103 97 - 110 mmol/L HISTORICAL RESULTS CO2 24 22 - 32 mmol/L HISTORICAL RESULTS A. gap 10 0 - 16 mmol/L HISTORICAL RESULTS Glucose 108 70 - 199 mg/dl HISTORICAL RESULTS BUN 14 8 - 25 mg/dl HISTORICAL RESULTS Creatinine 1.05 0.70 - 1.30 mg/dl HISTORICAL RESULTS Calcium 9.2 8.6 - 10.3 mg/dl HISTORICAL RESULTS Plasma 08/06/2013 8:51 PM CDT Luke Beckham MD PhD LAB BLOOD ORDERABLES Final Result Performing Organization Address [facility] de Phone Number HISTORICAL RESULTS * Plasma phosphorus (08/06/2013 8:51 PM CDT) Pathologist [facility] Phosphorus, pl 4.1 2.3 - 4.3 mg/dl HISTORICAL RESULTS Plasma 08/06/2013 8:51 PM CDT Luke Beckham MD PhD LAB BLOOD ORDERABLES Final Result HISTORICAL RESULTS * Serum magnesium (08/06/2013 8:51 PM CDT) Pathologist [facility] Magnesium 2.0 1.4 - 2.5 mg/dl HISTORICAL RESULTS Serum 08/06/2013 8:51 PM CDT Luke Beckham MD PhD LAB BLOOD ORDERABLES Final Result HISTORICAL RESULTS * (ABNORMAL) Blood cell count (CBC) (08/06/2013 8:51 PM CDT) WBC 9.9(H) 3.8 - 9.8 K/cumm HISTORICAL RESULTS RBC 3.66(L) 4.50 - 5.70 M/cumm HISTORICAL RESULTS Hgb 11.9(L) 13.8 - 17.2 g/dl HISTORICAL RESULTS Hct 34.6(L) 40.7 - 50.3 % HISTORICAL RESULTS MCV 94.4 80.0 - 97.6 fl HISTORICAL RESULTS MCH 32.6 26.7 - 33.7 pg HISTORICAL RESULTS MCHC 34.5 32.7 - 35.5 g/dl HISTORICAL RESULTS Rdw 12.6 11.8 - 14.6 % HISTORICAL RESULTS Platelets 301 140 - 440 K/cumm HISTORICAL RESULTS MPV 8.0 6.8 - 10.4 fl HISTORICAL RESULTS Neutrophils 54.3 38.7 - 74.5 % HISTORICAL RESULTS Lymphocytes 35.7 20.0 - 54.3 % HISTORICAL RESULTS Monos 7.4 4.3 - 13.5 % HISTORICAL RESULTS Eosinophils 2.1 0.0 - 6.0 % HISTORICAL RESULTS Basophils 0.5 0.0 - 3.0 % HISTORICAL RESULTS Neutrophils, abs 5.3 1.8 - 6.6 K/cumm HISTORICAL RESULTS Lymphocytes, abs 3.5(H) 1.2 - 3.3 K/cumm HISTORICAL RESULTS Monocytes, absolute 0.7 0.2 - 1.2 K/cumm HISTORICAL RESULTS Eosinophils, abs 0.2 0.0 - 0.5 K/cumm HISTORICAL RESULTS Basophils, abs 0.0 0.0 - 0.2 K/cumm HISTORICAL RESULTS Blood specimen (specimen) 08/06/2013 8:51 PM CDT Luke Beckham MD PhD LAB BLOOD ORDERABLES Final Result HISTORICAL RESULTS * XR Chest Pa Lateral 2 Views (08/06/2013 1:26 PM CDT) Anatomical Region Laterality Modality Body, Chest N/A Radiographic Martha ging 08/06/2013 1:26 PM CDT Narrative 08/07/2013 7:48 AM CDT PATRICA WEBBER M.D. FINAL REPORT ACC# ??Date Time ??Exam [id number] Aug 07, 2013 04:59:00 [id number] Chest 1 view Frontal [id number] Aug 06, 2013 13:26:00 13090 Chest 2 views Front&Lat EXAMINATION: ?? 2 views of the chest 08/06/2013 at 1316 FINDINGS: when compared to the prior study no change in a right chest tube but there has been slight increase in size of a right apical pneumothorax. The lungs are clear. No left pneumothorax. The heart size and mediastinal contour are unchanged. No pleural effusion. Exam: Single view chest 08/07/2013 at 445 IMPRESSION: ?? no change when compared to the prior study. Right apical pneumothorax and right chest tube unchanged. Requested By: LUKE BECKHAM M.D. Dictated By: ?? PATRICA WEBBER M.D. ??on Aug 07 2013 ??7:48A This document has been electronically signed by: PATRICA WEBBER M.D. on Aug 07 2013 ??7:48A Procedure Note Provider, MD Edilberto - 09/25/2016 PATRICA WEBBER M.D. FINAL REPORT ACC# Date Time Exam [id number] Aug 07, 2013 04:59:00 10642 Chest 1 view Frontal [id number] Aug 06, 2013 13:26:00 73111 Chest 2 views Front&Lat EXAMINATION: 2 views of the chest 08/06/2013 at 1316 FINDINGS: when compared to the prior study no change in a right chest tube but there has been slight increase in size of a right apical pneumothorax. The lungs are clear. No left pneumothorax. The heart size and mediastinal contour are unchanged. No pleural effusion. Exam: Single view chest 08/07/2013 at 445 IMPRESSION: no change when compared to the prior study. Right apical pneumothorax and right chest tube unchanged. Requested By: LUKE BECKHAM M.D. Dictated By: PATRICA WEBBER M.D. on Aug 07 2013 7:48A This document has been electronically signed by: PATRICA WEBBER M.D. on Aug 07 2013 7:48A us Historical Provider MD DRAKE XR PROCEDURES Final R esult * XR Chest 1 Vw (08/06/2013 4:04 AM CDT) Anatomical Region Laterality Modality Body, Chest N/A Radiographic Martha ging 08/06/2013 4:04 AM CDT Narrative 08/06/2013 9:57 AM CDT ALTON LLOYD M.D. PK PINTO M.D. FINAL REPORT The radiology attending physician has personally reviewed this study, and has reviewed and/or edited this written report and agrees with it. ACC# ??Date Time ??Exam [id number] Aug 06, 2013 04:04:00 [id number] Chest 1 view Frontal EXAMINATION: ?? Chest 1 view COMPARISON: 08/05/2013 ?? IMPRESSION: ?Right thoracostomy tube is unchanged in position. Small right apical pneumothorax is unchanged. Lungs are clear. Cardio mediastinal silhouette is stable. ?? Requested By: LUKE BECKHAM M.D. Dictated By: ?? PK PINTO M.D. ??on Aug 06 2013 ??9:55A This document has been electronically signed by: ALTON LLOYD M.D. on Aug 06 2013 ??9:57A Procedure Note Provider, Historical, - 08/20/2016 Rosy SAGE M.D. FINAL REPORT The radiology attending physician has personally reviewed this study, and has reviewed and/or edited this written report and agrees with it. ACC# Date Time Exam [id number] Aug 06, 2013 04:04:00 [id number] Chest 1 view Frontal EXAMINATION: Chest 1 view COMPARISON: 08/05/2013 IMPRESSION: Right thoracostomy tube is unchanged in position. Small right apical pneumothorax is unchanged. Lungs are clear. Cardio mediastinal silhouette is stable. Requested By: LUKE BECKHAM M.D. Dictated By: PK PINTO M.D. on Aug 06 2013 9:55A This document has been electronically signed by: ALTON LLOYD M.D. on Aug 06 2013 9:57A us Historical Provider MD DRAKE XR PROCEDURES Final R esult * XR Chest Pa Lateral 2 Views (08/05/2013 10:26 AM CDT) Anatomical Region Laterality Modality Body, Chest N/A Radiographic Martha ging 08/05/2013 10:2 6 AM CDT Narrative 08/05/2013 10:33 AM CDT PATRICA WEBBER M.D. FINAL REPORT ACC# ??Date Time ??Exam [id number] Aug 05, 2013 10:26:00 [id number] Chest 2 views Front&Lat EXAMINATION: ?TWO-VIEW CHEST IMPRESSION: ?? when compared to the prior study of 08/05/2013 at 4:15 a.m., there has been no change in a right chest tube and a small apical pneumothorax. The right pneumothorax has not gotten larger. Left lung remains clear. The heart size and mediastinal contour are unchanged. no pleural effusion. Requested By: BESSY BARBER Dictated By: ?? PATRICA WEBBER M.D. ??on Aug 05 2013 10:33A This document has been electronically signed by: PATRICA WEBBER M.D. on Aug 05 2013 10:33A Procedure Note Provider, Historical, - 09/25/2016 PATRICA WEBBER M.D. FINAL REPORT ACC# Date Time Exam [id number] Aug 05, 2013 10:26:00 [id number] Chest 2 views Front&Lat EXAMINATION: TWO-VIEW CHEST IMPRESSION: when compared to the prior study of 08/05/2013 at 4:15 a.m., there has been no change in a right chest tube and a small apical pneumothorax. The right pneumothorax has not gotten larger. Left lung remains clear. The heart size and mediastinal contour are unchanged. no pleural effusion. Requested By: BESSY BARBER Dictated By: PATRICA WEBBER M.D. on Aug 05 2013 10:33A This document has been electronically signed by: PATRICA WEBBER M.D. on Aug 05 2013 10:33A us Historical Provider MD DRAKE XR PROCEDURES Final R esult * XR Chest 1 Vw (08/05/2013 4:26 AM CDT) Anatomical Region Laterality Modality Body, Chest N/A Radiographic Martha ging 08/05/2013 4:26 AM CDT Narrative 08/05/2013 10:39 AM CDT MARY MONTES DE OCA M.D. ZHANG BLACKMON M.D. FINAL REPORT The radiology attending physician has personally reviewed this study, and has reviewed and/or edited this written report and agrees with it. ACC# ??Date Time ??Exam [id number] Aug 05, 2013 04:26:00 [id number] Chest 1 view Frontal EXAMINATION: ?? Chest one view IMPRESSION: ? Comparison is made to previous examination from 08/05/2013 at 12:43 a.m. Right-sided chest tube appears unchanged. Small right apical pneumothorax is stable. There may be a small bleb in the left lung apex. Lungs are otherwise clear. No pleural effusion. The cardio mediastinal silhouette is stable. Requested By: BILL BEARD M.D. Dictated By: ?? ZHANG BLACKMON M.D. ??on Aug 05 2013 ??8:10A This document has been electronically signed by: MARY MONTES DE OCA M.D. on Aug 05 2013 10:39A Procedure Note Provider, MD Edilberto - 08/20/2016 MARY MONTES DE OCA M.D. ZHANG BLACKMON M.D. FINAL REPORT The radiology attending physician has personally reviewed this study, and has reviewed and/or edited this written report and agrees with it. ACC# Date Time Exam [id number] Aug 05, 2013 04:26:00 [id number] Chest 1 view Frontal EXAMINATION: Chest one view IMPRESSION: Comparison is made to previous examination from 08/05/2013 at 12:43 a.m. Right-sided chest tube appears unchanged. Small right apical pneumothorax is stable. There may be a small bleb in the left lung apex. Lungs are otherwise clear. No pleural effusion. The cardio mediastinal silhouette is stable. Requested By: BILL BEARD M.D. Dictated By: ZHANG BLACKMON M.D. on Aug 05 2013 8:10A This document has been electronically signed by: MARY MONTES DE OCA M.D. on Aug 05 2013 10:39A us Historical Provider MD DRAKE XR PROCEDURES Final R esult * (ABNORMAL) Plasma basic metabolic panel (08/05/2013 3:39 AM CDT) Pathologist [facility] CO2 21(L) 22 - 32 mmol/L HISTORICAL RESULTS A. gap 10 0 - 16 mmol/L HISTORICAL RESULTS Glucose 88 70 - 199 mg/dl HISTORICAL RESULTS BUN 14 8 - 25 mg/dl HISTORICAL RESULTS Creatinine 0.88 0.70 - 1.30 mg/dl HISTORICAL RESULTS Calcium 9.0 8.6 - 10.3 mg/dl HISTORICAL RESULTS Sodium 142 135 - 145 mmol/L HISTORICAL RESULTS K, pl 4.4 3.3 - 4.9 mmol/L HISTORICAL RESULTS Chloride 111(H) 97 - 110 mmol/L HISTORICAL RESULTS Plasma 08/05/2013 3:39 AM CDT Concepcion Cormier MD LAB BLOOD ORDERABLES Fin al Result HISTORICAL RESULTS * (ABNORMAL) Blood cell count (CBC) (08/05/2013 3:39 AM CDT) WBC 15.4(H) 3.8 - 9.8 K/cumm HISTORICAL RESULTS RBC 3.96(L) 4.50 - 5.70 M/cumm HISTORICAL RESULTS Hgb 13.0(L) 13.8 - 17.2 g/dl HISTORICAL RESULTS Hct 37.0(L) 40.7 - 50.3 % HISTORICAL RESULTS MCV 93.7 80.0 - 97.6 fl HISTORICAL RESULTS MCH 33.0 26.7 - 33.7 pg HISTORICAL RESULTS MCHC 35.2 32.7 - 35.5 g/dl HISTORICAL RESULTS Rdw 13.1 11.8 - 14.6 % HISTORICAL RESULTS Platelets 301 140 - 440 K/cumm HISTORICAL RESULTS MPV 7.7 6.8 - 10.4 fl HISTORICAL RESULTS Neutrophils 71.2 38.7 - 74.5 % HISTORICAL RESULTS Lymphocytes 22.7 20.0 - 54.3 % HISTORICAL RESULTS Monos 4.4 4.3 - 13.5 % HISTORICAL RESULTS Eosinophils 1.5 0.0 - 6.0 % HISTORICAL RESULTS Basophils 0.2 0.0 - 3.0 % HISTORICAL RESULTS Neutrophils, abs 10.9(H) 1.8 - 6.6 K/cumm HISTORICAL RESULTS Lymphocytes, abs 3.5(H) 1.2 - 3.3 K/cumm HISTORICAL RESULTS Monocytes, absolute 0.7 0.2 - 1.2 K/cumm HISTORICAL RESULTS Eosinophils, abs 0.2 0.0 - 0.5 K/cumm HISTORICAL RESULTS Basophils, abs 0.0 0.0 - 0.2 K/cumm HISTORICAL RESULTS Blood specimen (specimen) 08/05/2013 3:39 AM CDT Concepcion Cormier MD LAB BLOOD ORDERABLES Fin al Result HISTORICAL RESULTS * XR Chest 1 Vw (08/05/2013 12:52 AM CDT) Anatomical Region Laterality Modality Body, Chest N/A Radiographic Martha ging 08/05/2013 12:5 2 AM CDT Narrative 08/05/2013 9:47 AM CDT LIZET HATFIELD M.D. ADRIEN NOLAND M.D. FINAL REPORT The radiology attending physician has personally reviewed this study, and has reviewed and/or edited this written report and agrees with it. ACC# ??Date Time ??Exam [id number] Aug 05, 2013 00:52:00 [id number] Chest 1 view Frontal EXAMINATION: ?? Chest 1 view HISTORY: Spontaneous pneumothorax. Line placement. ?? IMPRESSION: ?Comparison is made with prior study dated 08/04/2013 2339 hours. Interval placement of right chest tube with associated soft tissue gas. There has been interval decrease in right apical pneumothorax, now small. No focal consolidation, edema or pleural effusion. Cardiomediastinal silhouette is normal. ?? Requested By: ROSALBA ESCALERA M.D. Dictated By: ?? ADRIEN NOLAND M.D. ??on Aug 05 2013 ??1:06A This document has been electronically signed by: LIZET HATFIELD M.D. on Aug 05 2013 ??9:47A Procedure Note Provider, MD Edilberto - 08/20/2016 Rosy COFFEY M.D. FINAL REPORT The radiology attending physician has personally reviewed this study, and has reviewed and/or edited this written report and agrees with it. ACC# Date Time Exam [id number] Aug 05, 2013 00:52:00 [id number] Chest 1 view Frontal EXAMINATION: Chest 1 view HISTORY: Spontaneous pneumothorax. Line placement. IMPRESSION: Comparison is made with prior study dated 08/04/2013 2339 hours. Interval placement of right chest tube with associated soft tissue gas. There has been interval decrease in right apical pneumothorax, now small. No focal consolidation, edema or pleural effusion. Cardiomediastinal silhouette is normal. Requested By: ROSALBA ESCALERA M.D. Dictated By: ADRIEN NOLAND M.D. on Aug 05 2013 1:06A This document has been electronically signed by: LIZET HATFIELD M.D. on Aug 05 2013 9:47A us Historical Provider MD DRAKE XR PROCEDURES Final R esult * XR Chest 1 Vw (08/04/2013 11:42 PM CDT) Anatomical Region Laterality Modality Body, Chest N/A Radiographic Martha ging 08/04/2013 11:4 2 PM CDT Narrative 08/05/2013 9:45 AM CDT Rosy COFFEY M.D. FINAL REPORT The radiology attending physician has personally reviewed this study, and has reviewed and/or edited this written report and agrees with it. ACC# ??Date Time ??Exam [id number] Aug 04, 2013 23:42:00 [id number] Chest 1 view Frontal EXAMINATION: ?? CHEST ONE VIEW ?? IMPRESSION: ?? No prior imaging is available for comparison. The costophrenic angles are excluded from the [id number]. There is a right apical pneumothorax. ??Haziness within the left midlung likely is secondary to portable technique with overlying soft tissues and osseous structures. The lungs otherwise clear. There is no consolidation or effusion. The heart size is within normal limits. ?? Requested By: JENNIFER APPLE M.D. Dictated By: ?? JAIRO RAE M.D. ??on Aug 04 2013 11:59P This document has been electronically signed by: LIZET HATFIELD M.D. on Aug 05 2013 ??9:45A Procedure Note Provider, MD Edilberto - 08/20/2016 Rosy COFFEY M.D. FINAL REPORT The radiology attending physician has personally reviewed this study, and has reviewed and/or edited this written report and agrees with it. ACC# Date Time Exam [id number] Aug 04, 2013 23:42:00 [id number] Chest 1 view Frontal EXAMINATION: CHEST ONE VIEW IMPRESSION: No prior imaging is available for comparison. The costophrenic angles are excluded from the [id number]. There is a right apical pneumothorax. Haziness within the left midlung likely is secondary to portable technique with overlying soft tissues and osseous structures. The lungs otherwise clear. There is no consolidation or effusion. The heart size is within normal limits. Requested By: JENNIFER APPLE M.D. Dictated By: JAIRO RAE M.D. on Aug 04 2013 11:59P This document has been electronically signed by: LIZET HATFIELD M.D. on Aug 05 2013 9:45A Historical Provider MD DRAKE XR PROCEDURES Final R esult documented in this encounter Visit Diagnoses Diagnosis Other pneumothorax Tobacco use disorder Esophageal reflux documented in this encounter Care Teams Pad Machine Offbearer Relationship Specialty Start Date End Date Prince Bello MD [address] [place] [address] PCP - General 05/28/11 07/17/16 documented as of this encounter
--- OUTSIDE RECORDS SUMMARY | 2024-04-16 14:15 | XMS_ITS | Encounter Summary ---
Author Organization [facility] Address [address] [place] [address] Care Team Providers Care Javascript Front End Developer Name Role Phone Unavailable Primary Care Provider Unavailabl e Encounter Details Date Type Department Care Team (Latest Contact Info) Description 07/05/2001 Outpatient Historical [facility] Conversion, History [facility] DEP NEC/NOS-UNSPEC (Primary Dx) Social History Tobacco Use Types Packs/Day Years Used Date Smoking Tobacco: Never Assessed Sex and Gender Information Value Date Recorded Sex Assigned at Not on file Gender Identity Not on file Sexual Orientation Not on file documented as of this encounter Plan of Treatment Not on file documented as of this encounter Visit Diagnoses Diagnosis Other and unspecified alcohol dependence, unspecified drinking behavior- Primary documented in this encounter
--- OUTSIDE RECORDS SUMMARY | 2024-04-16 14:15 | XMS_ITS | Continuity of Care Document ---
Author Organization [facility] Address [address] [place] [address] Phone Care Team Providers Care Superintendent Car Construction Name Role Phone Unavailable Unavailable Unavailable Medications Medication Instructions Dosage Effective Dates (start - stop) Status Comments Mobic 15 mg Tab Take [address] [facility] daily with food - Active Procedures Procedure Date Office/outpatient visit,[facility] 2010 X-ray exam of shoulder, complete 2010 Advance Directives Directive Yes / No Effective Date File Name No Information Encounters Encounter Description Practice Location Reason(s) For Visit Diagnoses Date Provider Providers Copied on Encounter Office/outpat ient visit,[facility], [address], [place], [place], [id number], [place] tel:[phone] [facility] JOINT PAIN-SHLDE RROTATOR CUFF SYND NOS 7-201 1 No Information Family History Family Member Type Diagnosis Age At Onset No Information Payers Payer name Insurance type Covered green party ID Authormorenoa trini(s) [facility] CI [id number] Social History Type Description Quantity Date Captured Comments Sex Male Smoking Status No Information Chief Complaint And Reason For Visit No Information Reason For Referral Reason For Referral No Information History Of Present Illness Encounter Date Complaint History Of Prese nt Illness No Information Functional Status Date Functional Assessmen t No Information Instructions Date Instruction Additional Infor mation No Information Assessments Type Assessment Date No Information Patient Care Teams Name Effective Dates (start - stop) Status Members No Information
--- OUTSIDE RECORDS SUMMARY | 2024-04-16 14:15 | XMS_ITS | Encounter Summary ---
Author Organization [employer] Address [address] [place] [address] Care Team Providers Care Manager Solar Name Role Phone Unavailable Primary Care Provider Unavailabl e Encounter Details Date Type Department Care Team (Latest Contact Info) Description 09/07/2001 Outpatient Historical [facility] Conversion, History [...]
--- OUTSIDE RECORDS SUMMARY | 2024-04-16 14:15 | XMS_ITS | Encounter Summary ---
Author Organization [employer] Address [address] [place] [address] Care Team Providers Care Distribution Manager Name Role Phone Unavailable Primary Care Provider Unavailabl e Encounter Details Date Type Department Care Team (Latest Contact Info) Description 06/22/2001 Outpatient Historical [facility] Thalia Shaw MD [address] [place] [address] [facility] DEP NEC/NOS-UNSPEC (Primary Dx) Social History [...]
--- OUTSIDE RECORDS SUMMARY | 2024-04-16 14:15 | XMS_ITS | Encounter Summary ---
Author Organization [email or web address] Address [address] [place] [address] Care Team Providers Care Receivable Manager Name Role Phone Unavailable Primary Care Provider Unavailabl e Encounter Details Date Type Department Care Team (Latest Contact Info) Description 08/06/2001 Outpatient Historical [facility] Conversion, History [...]
--- OUTSIDE RECORDS SUMMARY | 2024-04-16 14:15 | XMS_ITS | Clinical Summary ---
Author Organization [facility] Address [address] Mel[place]: Epic Prelude ADT [place] [address] Care Team Providers Care Sales Representative Metals Name Role Phone Unavailable Primary Care Provider Unavailabl e Social History Tobacco Use Types Packs/Day Years Used Date Smoking Tobacco: Never Assessed Sex and Gender Information Value Date Recorded Sex Assigned at Not on file Gender Identity Not on file Sexual Orientation Not on file Plan of Treatment Health Maintenance Due Date Last Done Comments DTAP/TDAP/TD VACCINES (1 - Tdap) 1990 HEPATITIS B VACCINES (1 of 3 - 19+ 3-dose series) 1990 COLORECTAL SCREENING 2016 Colorectal Cancer Screening 2016 FIT-DNA Q 3 years 2016 FIT/FOBT Q 1 year 2016 Flex Sig/CT Colonography Q 5 years 2016 ZOSTER VACCINE (1 of 2) 2021 INFLUENZA VACCINE (#1) 2023 PNEUMOCOCCAL VACCINE 0-64 YEARS Aged Out No longer eligible based on patient's age to complete this topic
--- OUTSIDE RECORDS SUMMARY | 2024-04-16 14:16 | XMS_ITS | CONTINUITY OF CARE DOCUMENT ---
Author Name joseph, alkajeanie Address Unknown Organization [facility] Address [address] [place] [address] [address] [place] [address] Phone [phone] Care Team Providers Care Botany Teacher Name Role Phone Howard LISA, Camille Unavailable ISI ANGELES MD Unavailable [phone] ISI ANGELES MD Unavailable [phone] PROBLEMS Condition Status Date Provider Notes Coronary [...] mouth once a day - Julia Rolle EMBOSSED OR IMPRESSED LETTERING PAINTER Hyperlipidemia citalopram 10 mg tablet active 1 [...] alcohol use, type whiskey/beer Rebecca Vitale'Leti rubio EMBOSSED OR IMPRESSED LETTERING PAINTER alcohol use yes Rebecca Vitale'Jaden HARO if the patient is us ing/has used a vaping item, Current, Former, Never Used, Not asked Never Rebecca Thrasher NP chewing tobacco use Current Rebecca Stanley EMBOSSED OR IMPRESSED LETTERING PAINTER smoking, year quit 2012 Rebecca Hampton eal EMBOSSED OR IMPRESSED LETTERING PAINTER number of years as a smoker 10 a Rebecca Thrasher EMBOSSED OR IMPRESSED LETTERING PAINTER cigarette use yes Rebecca Thrasher N P smoking status Former smoker Rebecca MonterrosoJaden HARO FAMILY HISTORY Family Member Condition Father Hypertension Father Hyperlipidemia INSURANCE PROVIDERS Payer name Policy type / Coverage type Lu red constitution party ID [employer] Commercial insurance co [place] [id number] ADVANCE DIRECTIVES Name Date DISCUSSED - NO [...]
--- OUTSIDE RECORDS SUMMARY | 2024-04-16 14:16 | XMS_ITS | Continuity of Care Document ---
Author Organization [facility] Address [address] [place] [address] Phone Care Team Providers Care Food Production Manager Name Role Phone Unavailable Unavailable Unavailable Medications Medication Instructions Dosage Effective Dates (start - stop) Status Comments Mobic 15 mg Tab Take 1 capsule by mo [facility] daily with food - Active Procedures Procedure Date Office/outpatient visit,[facility] 2010 X-ray exam of shoulder, complete 2010 Advance Directives Directive Yes / No Effective Date File Name No Information Encounters Encounter Description Practice Location Reason(s) For Visit Diagnoses Date Provider Providers Copied on Encounter Office/outpat ient visit,[facility], [address], [place], [place], [id number], [place] tel:[phone] [facility] JOINT PAIN-SHLDE RROTATOR CUFF SYND NOS 7-201 1 No Information Family History Family Member Type Diagnosis Age At Onset No Information Payers Payer name Insurance type Covered republican ID Authormorenoa trini(s) [facility] CI [id number] Social History Type Description Quantity Date [...]
== END 2024-04-09 11:47 | disposition home or self-care (01) ==
PROVIDERS: Emergency Provider Registered Nurse; PCP Family Medicine
DX: J01.40 Acute pansinusitis, unspecified (principal); E78.5 Hyperlipidemia, unspecified; Z79.899 Other long term (current) drug therapy; Z87.891 Personal history of nicotine dependence
CPT/HCPCS: 71046; 99213; G0463